=== PATIENT | female | born 1965 | race Caucasian/White ===

== ENCOUNTER → 2021-08-06 10:17 | Outpatient (BNVA) | payer MEDICAID, SELFPAY | PROVIDERS: PCP Family Medicine; Visit Provider Psychiatry & Neurology Neurology | DX: G43.109 Migraine with aura, not intractable, without status migrainosus (principal); G47.10 Hypersomnia, unspecified; R06.83 Snoring | CPT/HCPCS: 64615; 99212; J0585 ==

== ENCOUNTER → 2021-11-12 09:28 | Outpatient (BNVA) | payer MEDICAID, SELFPAY | PROVIDERS: PCP Family Medicine; Visit Provider Psychiatry & Neurology Neurology | DX: G43.109 Migraine with aura, not intractable, without status migrainosus (principal); R06.83 Snoring; G47.10 Hypersomnia, unspecified | CPT/HCPCS: 64615; 99211; J0585 ==

== ENCOUNTER → 2022-02-18 09:24 | Outpatient (BNVA) | payer MEDICAID, SELFPAY | PROVIDERS: PCP Family Medicine; Visit Provider Psychiatry & Neurology Neurology | DX: G43.109 Migraine with aura, not intractable, without status migrainosus (principal); R06.83 Snoring; G47.10 Hypersomnia, unspecified | CPT/HCPCS: 64615; 99211; J0585 ==

== ENCOUNTER → 2022-05-20 09:23 | Outpatient (BNVA) | payer MEDICAID, SELFPAY | PROVIDERS: PCP Family Medicine; Visit Provider Psychiatry & Neurology Neurology | DX: G43.109 Migraine with aura, not intractable, without status migrainosus (principal); G47.10 Hypersomnia, unspecified; R06.83 Snoring | CPT/HCPCS: 64615; 99211; J0585 ==

== ENCOUNTER → 2022-08-19 09:57 | Outpatient (BNVA) | payer OTHER, SELFPAY | PROVIDERS: PCP Family Medicine; Visit Provider Psychiatry & Neurology Neurology | DX: G43.709 Chronic migraine without aura, not intractable, without status migrainosus (principal) | CPT/HCPCS: 64615; 99211; J0585 ==

== ENCOUNTER 2022-12-04 08:29 | Outpatient (AMB) | payer MEDICAID, SELFPAY ==
[2022-12-04 08:52] VITALS: BP 108/70; PULSE 63; O2SAT 99
--- NOTE | 2022-12-04 08:52 | MHC.OFFVIS ---
Intake Vital Signs 12/04/22 08:52 Height 5 ft 5 in BMI Reason not done Patient refused/unable BP 108/70 Blood Pressure Location Rt brachial Position Sitting Pulse 63 Pulse Source Pulse Oximeter Pulse Oximetry (%) 99 Oxygen Delivery Method Room Air Intake Visit Reasons: Botox(pharm)-lvm Intake Note: Pt presents in office for botox Elementary Reading Specialist Required: No Allergies acetaminophen [From MIDRIN] Allergy (Unknown, Unverified 12/04/22 08:58) VOMITING amitriptyline [AMITRIPTYLINE] Allergy (Unknown, Unverified 12/04/22 08:58) SEVERE HALLUCINATIONS butalbital [From FIORICET] Allergy (Unknown, Unverified 12/04/22 08:58) VOMITING caffeine [From FIORICET] Allergy (Unknown, Unverified 12/04/22 08:58) VOMITING dichloralphenazone [From MIDRIN] Allergy (Unknown, Unverified 12/04/22 08:58) VOMITING ferumoxytol [From FERAHEME] Allergy (Unknown, Unverified 12/04/22 08:58) GETS REALLY SICK gabapentin [From NEURONTIN] Allergy (Unknown, Unverified 12/04/22 08:58) PSYCHOSIS ibuprofen Allergy (Unknown, Verified 12/04/22 08:58) Unknown isometheptene [From MIDRIN] Allergy (Unknown, Unverified 12/04/22 08:58) VOMITING levetiracetam [From KEPPRA] Allergy (Unknown, Unverified 12/04/22 08:58) HALLUCINATIONS meperidine [From DEMEROL] Allergy (Unknown, Unverified 12/04/22 08:58) HIVES methocarbamol [From ROBAXIN] Allergy (Unknown, Unverified 12/04/22 08:58) DIARRHEA metoclopramide [From REGLAN] Allergy (Unknown, Unverified 12/04/22 08:58) TWITCHING morphine [MORPHINE] Allergy (Unknown, Unverified 12/04/22 08:58) VOMITING nortriptyline [NORTRIPTYLINE] Allergy (Unknown, Unverified 12/04/22 08:58) PSYCHOSIS NSAIDS (Non-Steroidal Anti-Inflamma [NSAIDS (NON-STEROIDAL ANTI-INFLAMMA] Allergy (Unknown, Unverified 12/04/22 08:58) GI BLEED pregabalin [From LYRICA] Allergy (Unknown, Unverified 12/04/22 08:58) UNKNOWN propranolol [PROPRANOLOL] Allergy (Unknown, Unverified 12/04/22 08:58) TACHYCARDIA sumatriptan [From IMITREX] Allergy (Unknown, Unverified 12/04/22 08:58) IRREGULAR HEART RATE topiramate [From TOPAMAX] Allergy (Unknown, Unverified 12/04/22 08:58) UNKNOWN valproic acid [VALPROIC ACID] Allergy (Unknown, Unverified 12/04/22 08:58) PSYCHOSIS venlafaxine [VENLAFAXINE] Allergy (Unknown, Unverified 12/04/22 08:58) DIARRHEA zolmitriptan [From ZOMIG] Allergy (Unknown, Unverified 12/04/22 08:58) IRREGULAR HEART RATE Midrin Allergy (Unknown, Uncoded 12/04/22 08:58) Unknown Novocain Allergy (Unknown, Uncoded 12/04/22 08:58) Unknown HPI HPI Comments History of Present Illness Details ? 57y/o female comes for treatment of migraines with botox. The patient has increased headaches for 2 weeks towards the end. ??? Most frequent reported adverse reactions following injection of botox for chronic migraine include neck pain (9%), headache(5%), eyelid ptosis(4%), migraine(4%), muscular weakness(4%), musculuskeletal stiffness(4%), bronchitis(3%), injection site pain (3%), musculoskeletal pain(3%), myalgia(3%), facial paresis(2%), HTN(2%) and muscle spasms(2%) were discussed in detail. ??? Botulinum toxin typeA 200units Lot no [id number] expiration May 2025 was diluted with 4 cc of normal saline . ??? Muscles injected- ??? Frontalis 4 sites ??? Procerus 1 site ??? [employer] Application Developer- 2 sites ??? Temporalis- 8 sites ??? Occipitalis- 6 sites ??? Cervical paraspinals- 4 sites ??? Trapezius- 6 sites- 15units each ??? 5 units each in 31 site ??? Total use- 200units ??? PFSH Medical History Anemia Chronic migraine with aura Chronic migraine without aura Diabetes Hypersomnia Mitochondrial ataxia syndrome Osteoporosis Snoring Surgical History History of ankle surgery Hx of heart surgery Family History Father Parkinson disease Mother Tuberculosis Social History Alcohol intake: current Alcohol intake frequency: holidays/special occasions only Patient Tobacco Use Status: Never used Tobacco Substance Use Type: Marijuana Physical Exam Vital Signs: Last Vital Signs Pulse 63 12/04/22 08:52 BP 108/70 12/04/22 08:52 Pulse Ox 99 12/04/22 08:52 Oxygen Delivery Method Room Air 12/04/22 08:52 Const General: cooperative and comfortable Nutritional Appearance: average body habitus Neuro Other: slurred speech Generalized weakness antecollis Office Procedures Botulinum toxin Injection 93305 - Migraine Procedure code (CPT) selection complete Office Meds onabotulinumtoxinA Performing Provider: Ying Espinal MD Administered by: Ying Espinal MD on 12/04/22 09:31 Dose Route Admin Location Lot Number Expiration Date [facility] Child Psychometrist 200 unit subcut [id number] 05/07/25 [id number] ALLERGAN/BOTOX Comments: see hpi Assessment & Plan Assessment & Plan (1) Chronic migraine without aura: Code(s): G43.709 - Chronic migraine without aura, not intractable, without status migrainosus Plan She is doing well on ubrelvy 100mg and botox - reports some breakthrough episodes 2 week towards the end . will consider Botox every 10 weeks - her insurance did not approve She tolerated the procedure well she will call with any side effects Orders: Orders AMB Botulinum toxin Injection - Patient Supplied Today G43.709 - Chronic migraine without aura, not intractable, without status migrainosus Coding Level of Care Code Est Pt Level 1 (62164) Diagnoses Chronic migraine without aura G43.709 CPT Codes Botox Injection - Botox 3: 14849 - Migraine ([id number])
== END 2022-12-04 09:41 | disposition home or self-care (01) ==
PROVIDERS: Visit Provider Psychiatry & Neurology Neurology
DX: G43.709 Chronic migraine without aura, not intractable, without status migrainosus (principal)
CPT/HCPCS: 64615

== ENCOUNTER → 2022-12-04 08:29 | Outpatient (BNVA) | payer MEDICAID, SELFPAY | PROVIDERS: Visit Provider Psychiatry & Neurology Neurology | DX: G43.709 Chronic migraine without aura, not intractable, without status migrainosus (principal) | CPT/HCPCS: 64615; 99211; J0585 ==

== ENCOUNTER 2023-03-06 12:44 | Outpatient (REF) | payer MEDICAID, SELFPAY ==
--- NOTE | ~2023-03-06 | MR_ITS ---
EXAMINATION: MR BRAIN WITHOUT CONTRAST CLINICAL INFORMATION: Severe migraines. Numbness in extremities. Other mitochondrial metabolism disorders. COMPARISON: Head CT dated 04/22/2013. TECHNIQUE: Multiplanar, multisequence imaging of the brain was performed without contrast. Limited study with motion artifacts. FINDINGS: No diffusion abnormalities are identified to suggest an acute or subacute infarct. The ventricles are normal in size. No mass effect or midline shift is seen. Minimal nonspecific scattered white matter signal changes are visible in the centrum semiovale. No extra-axial fluid collections are seen. The brainstem and cerebellum are normal. The gradient refocused acquisition demonstrates no pathologic magnetic susceptibility artifact to indicate underlying acute or chronic blood products. The craniovertebral junction, marrow signal, and midline structures are normal. The major intracranial flow voids at the level of the [place] are preserved. The dural venous sinus flow voids are maintained. There is trace fluid in the dependent right mastoid air cells. Moderate left maxillary sinus mucosal thickening noted with aerosolized secretions. Mild ethmoid sinus mucosal thickening noted. Milder mucosal thickening visible in the right maxillary antrum as well. There is a moderate leftward nasal septal deviation. MR/MR head/brain wo con IMPRESSION: No acute process. Limited study with motion artifacts. Minimal nonspecific white matter signal changes of indeterminate clinical significance. Moderate left maxillary sinus mucosal thickening and aerosolized secretions.
== END 2023-03-06 12:45 | disposition home or self-care (01) ==
LOC: HO.MRI 12:44
PROVIDERS: Visit Provider Psychiatry & Neurology Neurology
DX: E88.49 Other mitochondrial metabolism disorders (principal)
CPT/HCPCS: 70551

== ENCOUNTER 2023-03-12 07:51 | Outpatient (AMB) | payer MEDICAID, SELFPAY ==
--- NOTE | 2023-03-12 08:10 | A.OFFVIS_ITS ---
Intake Vital Signs 03/12/23 08:11 Height 5 ft 5 in BP 120/70 Blood Pressure Location Rt brachial Position Sitting Respiration 16 Pulse 64 Pulse Source Pulse Oximeter Pulse Oximetry (%) 96 Oxygen Delivery Method Room Air Intake Visit Reasons: Botox(pharm) - LVM Intake Note: Pt presents for Botox injection. Closing Coordinator Required: No Allergies acetaminophen [From MIDRIN] Allergy (Unknown, Verified 03/12/23 08:11) VOMITING amitriptyline [AMITRIPTYLINE] Allergy (Unknown, Verified 03/12/23 08:11) SEVERE HALLUCINATIONS aspirin [From Fiorinal] Allergy (Unknown, Verified 03/12/23 08:11) Unknown butalbital [From FIORICET] Allergy (Unknown, Verified 03/12/23 08:11) VOMITING caffeine [From FIORICET] Allergy (Unknown, Verified 03/12/23 08:11) VOMITING cefuroxime Allergy (Unknown, Verified 03/12/23 08:11) Vomiting dichloralphenazone [From MIDRIN] Allergy (Unknown, Verified 03/12/23 08:11) VOMITING ferumoxytol [From FERAHEME] Allergy (Unknown, Verified 03/12/23 08:11) GETS REALLY SICK fluoxetine Allergy (Unknown, Verified 03/12/23 08:11) Unknown gabapentin [From NEURONTIN] Allergy (Unknown, Verified 03/12/23 08:11) PSYCHOSIS ibandronate sodium [From Boniva] Allergy (Unknown, Verified 03/12/23 08:11) Vomiting ibuprofen Allergy (Unknown, Verified 03/12/23 08:11) Unknown isometheptene [From MIDRIN] Allergy (Unknown, Verified 03/12/23 08:11) VOMITING levetiracetam [From KEPPRA] Allergy (Unknown, Verified 03/12/23 08:11) HALLUCINATIONS meperidine [From DEMEROL] Allergy (Unknown, Verified 03/12/23 08:11) HIVES methocarbamol [From ROBAXIN] Allergy (Unknown, Verified 03/12/23 08:11) DIARRHEA metoclopramide [From REGLAN] Allergy (Unknown, Verified 03/12/23 08:11) TWITCHING morphine [MORPHINE] Allergy (Unknown, Verified 03/12/23 08:11) VOMITING nortriptyline [NORTRIPTYLINE] Allergy (Unknown, Verified 03/12/23 08:11) PSYCHOSIS NSAIDS (Non-Steroidal Anti-Inflamma [NSAIDS (NON-STEROIDAL ANTI-INFLAMMA] Allergy (Unknown, Verified 03/12/23 08:11) GI BLEED pregabalin [From LYRICA] Allergy (Unknown, Verified 03/12/23 08:11) UNKNOWN propranolol [PROPRANOLOL] Allergy (Unknown, Verified 03/12/23 08:11) TACHYCARDIA sumatriptan [From IMITREX] Allergy (Unknown, Verified 03/12/23 08:11) IRREGULAR HEART RATE teriparatide [From Forteo] Allergy (Unknown, Verified 03/12/23 08:11) Unknown topiramate [From TOPAMAX] Allergy (Unknown, Verified 03/12/23 08:11) UNKNOWN valproic acid [VALPROIC ACID] Allergy (Unknown, Verified 03/12/23 08:11) PSYCHOSIS venlafaxine [VENLAFAXINE] Allergy (Unknown, Verified 03/12/23 08:11) DIARRHEA zolmitriptan [From ZOMIG] Allergy (Unknown, Verified 03/12/23 08:11) IRREGULAR HEART RATE valporic acid Allergy (Severe, Uncoded 12/04/22 11:48) Unknown Midrin Allergy (Unknown, Uncoded 12/04/22 08:58) Unknown Novocain Allergy (Unknown, Uncoded 12/04/22 08:58) Unknown Medication List - Last Reconciled 03/12/23 by Ying Espinal MD baclofen 20 mg PO BEDTIME buspirone 30 mg PO BID calcium citrate-vitamin D3 200 mg-6.25 mcg (250 unit) 1 tab PO BID cetirizine 10 mg PO DAILY cholecalciferol (vitamin D3) 50 mcg PO DAILY cyanocobalamin (vitamin B-12) 500 mcg PO DAILY enoxaparin mg subcut DIRECTED estradiol 0.01%(0.1mg/gram) 1 g vaginal 3XW hyoscyamine sulfate 0.125 mg PO QID hyoscyamine sulfate 0.125 mg PO QID latanoprost 0.005% 1 drp ophthalmic (eye) BEDTIME loperamide 0 mg PO lorazepam 1 mg PO QID magnesium oxide 0 mg PO morphine ER 15 mg PO Q12H onabotulinumtoxinA (Botox) to be injected to face an dneck muscles subcutaneously ONCE EVERY 90 DAYS; ondansetron 8 mg PO Q8H orphenadrine citrate 60 mg IM DAILY PRN oxycodone-acetaminophen 10-325 mg 1 tab PO TID pantoprazole 40 mg PO BID pravastatin 40 mg PO BEDTIME promethazine 25 mg PO TID PRN propranolol 20 mg PO BID PRN propranolol ER 60 mg PO DAILY sennosides-docusate sodium 8.6-50 mg (Stimulant Laxative Plus) 1 tab PO BID tizanidine 6 mg PO QID ubrogepant (Ubrelvy) 100 mg PO DAILY PRN venlafaxine ER 150 mg PO DAILY warfarin 5 - 10 mg PO DAILY zolpidem 10 mg PO BEDTIME PRN HPI HPI Comments History of Present Illness Details ? 57y/o female comes for treatment of migraines with botox. The patient has increased headaches for 2 weeks towards the end. ??? Most frequent reported adverse reactions following injection of botox for chronic migraine include neck pain (9%), headache(5%), eyelid ptosis(4%), migraine(4%), muscular weakness(4%), musculuskeletal stiffness(4%), bronchitis(3%), injection site pain (3%), musculoskeletal pain(3%), myalgia(3%), facial paresis(2%), HTN(2%) and muscle spasms(2%) were discussed in detail. ??? Botulinum toxin typeA 200units Lot no [id number] expiration June 2025 was diluted with 4 cc of normal saline . ??? Muscles injected- ??? Frontalis 4 sites ??? Procerus 1 site ??? Superintendent Of Schools- 2 sites ??? Temporalis- 8 sites ??? Occipitalis- 6 sites ??? Cervical paraspinals- 4 sites ??? Trapezius- 6 sites- 15units each ??? 5 units each in 31 site ??? Total use- 200units ??? PFSH Medical History Chronic migraine without aura Diabetes Hypersomnia Snoring Osteoporosis Chronic migraine with aura Mitochondrial ataxia syndrome Anemia Surgical History History of ankle surgery Hx of heart surgery Family History Father Parkinson disease Mother Tuberculosis Social History Alcohol intake: current Alcohol intake frequency: holidays/special occasions only Patient Tobacco Use Status: Never used Tobacco Substance Use Type: Marijuana Physical Exam Vital Signs: Last Vital Signs Pulse 64 03/12/23 08:11 Resp 16 03/12/23 08:11 BP 120/70 03/12/23 08:11 Pulse Ox 96 03/12/23 08:11 Oxygen Delivery Method Room Air 03/12/23 08:11 Const General: cooperative and comfortable Nutritional Appearance: average body habitus Neuro Other: slurred speech Generalized weakness antecollis Office Procedures Botulinum toxin Injection 83705 - Migraine Procedure code (CPT) selection complete Office Meds onabotulinumtoxinA 200 unit solution for injection Performing Provider: Ying Espinal MD Performing Location: [facility] [place] [facility] Administered by: Ying Espinal MD on 03/12/23 08:42 Dose Route Admin Location Dispensed Lot Number Expiration Date [facility] Food And Beverage Director 200 unit subcut 06/04/25 200 units [id number] ALLERGAN/BOTOX Comments: see hpi Assessment & Plan Assessment & Plan (1) Chronic migraine without aura: Code(s): G43.709 - Chronic migraine without aura, not intractable, without status migrainosus Plan She is doing well on ubrelvy 100mg and botox - reports some breakthrough episodes 2 week towards the end . will consider Botox every 10 weeks - her insurance did not approve She tolerated the procedure well she will call with any side effects Orders: Orders AMB Botulinum toxin Injection - Patient Supplied Today G43.709 - Chronic migraine without aura, not intractable, without status migrainosus Coding Level of Care Code Est Pt Level 1 (11445) Diagnoses Chronic migraine without aura G43.709 CPT Codes Botox Injection - Botox 3: 83769 - Migraine ([id number])
[2023-03-12 08:11] VITALS: BP 120/70; PULSE 64; RESP 16; O2SAT 96
== END 2023-03-12 08:58 | disposition home or self-care (01) ==
PROVIDERS: PCP Family Medicine; Visit Provider Psychiatry & Neurology Neurology
DX: G43.709 Chronic migraine without aura, not intractable, without status migrainosus (principal)
CPT/HCPCS: 64615

== ENCOUNTER → 2023-03-12 07:51 | Outpatient (BNVA) | payer MEDICAID, SELFPAY | PROVIDERS: PCP Family Medicine; Visit Provider Psychiatry & Neurology Neurology | DX: G43.709 Chronic migraine without aura, not intractable, without status migrainosus (principal) | CPT/HCPCS: 64615; 99211; J0585 ==

== ENCOUNTER 2023-03-24 10:12 | Outpatient (AMB) | payer MEDICAID, SELFPAY ==
--- NOTE | 2023-03-24 10:25 | MHC.OFFVIS ---
Intake Vital Signs 03/24/23 10:31 Height 5 ft 5 in Weight 150 lb BMI 25.0 BP 145/68 H Blood Pressure Location Lt brachial Pulse 67 Intake Visit Reasons: Gastroesophageal reflux disease (GERD) Intake Note: Patient new consult for GERD. Patient cc: abdominal bloating, acid reflex with burning sensation, between diarrhea and constipation and swallowing problems. Ledger Clerk Required: No Accompanied by: Friend Allergies acetaminophen [From MIDRIN] Allergy (Unknown, Verified 03/12/23 08:11) VOMITING amitriptyline [AMITRIPTYLINE] Allergy (Unknown, Verified 03/12/23 08:11) SEVERE HALLUCINATIONS aspirin [From Fiorinal] Allergy (Unknown, Verified 03/12/23 08:11) Unknown butalbital [From FIORICET] Allergy (Unknown, Verified 03/12/23 08:11) VOMITING caffeine [From FIORICET] Allergy (Unknown, Verified 03/12/23 08:11) VOMITING cefuroxime Allergy (Unknown, Verified 03/12/23 08:11) Vomiting dichloralphenazone [From MIDRIN] Allergy (Unknown, Verified 03/12/23 08:11) VOMITING ferumoxytol [From FERAHEME] Allergy (Unknown, Verified 03/12/23 08:11) GETS REALLY SICK fluoxetine Allergy (Unknown, Verified 03/12/23 08:11) Unknown gabapentin [From NEURONTIN] Allergy (Unknown, Verified 03/12/23 08:11) PSYCHOSIS ibandronate sodium [From Boniva] Allergy (Unknown, Verified 03/12/23 08:11) Vomiting ibuprofen Allergy (Unknown, Verified 03/12/23 08:11) Unknown isometheptene [From MIDRIN] Allergy (Unknown, Verified 03/12/23 08:11) VOMITING levetiracetam [From KEPPRA] Allergy (Unknown, Verified 03/12/23 08:11) HALLUCINATIONS meperidine [From DEMEROL] Allergy (Unknown, Verified 03/12/23 08:11) HIVES methocarbamol [From ROBAXIN] Allergy (Unknown, Verified 03/12/23 08:11) DIARRHEA metoclopramide [From REGLAN] Allergy (Unknown, Verified 03/12/23 08:11) TWITCHING morphine [MORPHINE] Allergy (Unknown, Verified 03/12/23 08:11) VOMITING nortriptyline [NORTRIPTYLINE] Allergy (Unknown, Verified 03/12/23 08:11) PSYCHOSIS NSAIDS (Non-Steroidal Anti-Inflamma [NSAIDS (NON-STEROIDAL ANTI-INFLAMMA] Allergy (Unknown, Verified 03/12/23 08:11) GI BLEED pregabalin [From LYRICA] Allergy (Unknown, Verified 03/12/23 08:11) UNKNOWN propranolol [PROPRANOLOL] Allergy (Unknown, Verified 03/12/23 08:11) TACHYCARDIA sumatriptan [From IMITREX] Allergy (Unknown, Verified 03/12/23 08:11) IRREGULAR HEART RATE teriparatide [From Forteo] Allergy (Unknown, Verified 03/12/23 08:11) Unknown topiramate [From TOPAMAX] Allergy (Unknown, Verified 03/12/23 08:11) UNKNOWN valproic acid [VALPROIC ACID] Allergy (Unknown, Verified 03/12/23 08:11) PSYCHOSIS venlafaxine [VENLAFAXINE] Allergy (Unknown, Verified 03/12/23 08:11) DIARRHEA zolmitriptan [From ZOMIG] Allergy (Unknown, Verified 03/12/23 08:11) IRREGULAR HEART RATE valporic acid Allergy (Severe, Uncoded 12/04/22 11:48) Unknown Midrin Allergy (Unknown, Uncoded 12/04/22 08:58) Unknown Novocain Allergy (Unknown, Uncoded 12/04/22 08:58) Unknown Medication List - Last Reconciled 03/24/23 by Shantell Sam PA-C baclofen 20 mg PO BEDTIME buspirone 30 mg PO BID calcium citrate-vitamin D3 200 mg-6.25 mcg (250 unit) 1 tab PO BID cetirizine 10 mg PO DAILY cholecalciferol (vitamin D3) 50 mcg PO DAILY cyanocobalamin (vitamin B-12) 500 mcg PO DAILY enoxaparin mg subcut DIRECTED hyoscyamine sulfate 0.125 mg PO QID latanoprost 0.005% 1 drp ophthalmic (eye) BEDTIME lorazepam 1 mg PO QID magnesium oxide 0 mg PO morphine ER 15 mg PO Q12H onabotulinumtoxinA (Botox) to be injected to face an dneck muscles subcutaneously ONCE EVERY 90 DAYS; ondansetron 8 mg PO Q8H orphenadrine citrate 60 mg IM DAILY PRN oxycodone-acetaminophen 10-325 mg 1 tab PO TID pantoprazole 40 mg PO BID pravastatin 40 mg PO BEDTIME promethazine 25 mg PO TID PRN propranolol 20 mg PO BID PRN sennosides-docusate sodium 8.6-50 mg (Stimulant Laxative Plus) 1 tab PO BID tizanidine 6 mg PO QID ubrogepant (Ubrelvy) 100 mg PO DAILY PRN venlafaxine ER 150 mg PO DAILY warfarin 5 - 10 mg PO DAILY zolpidem 10 mg PO BEDTIME PRN HPI HPI Comments History of Present Illness Details A 57 y/o female referred for acid reflux - pantoprazole for years- many EGD CDH- Bilroth 1- UGIB- mitochondrial dz- dismotility- She attempted a colonoscopy at least 4 times- last was about 5 years ago-- with Dr. Benjamin- unable to clean out- She has not ever cleaned out-she does get constipated she is unable to use suppositories or enemas because she is unable to retain She says she had polyps- in her 30s- She smoke MJ a couple times a day- Appetite is fluctuating- as well as her weight she has been to [employer] manometry- unclear-unable to provide feedback She saw [facility] for rectal -manometry as well No regular BM-s Acid reflux has been difficult to manage pantoprazole 40 mg daily, she is well tried other remedies in the past Reglan at some point for gastroparesis with side effects, which was then discontinued She has had no nausea, vomiting fever or chills PFSH Medical History (Updated 03/24/23 @ 12:56 by Shantell Sam PA-C) Chronic migraine without aura Diabetes Hypersomnia Snoring Osteoporosis Chronic migraine with aura Mitochondrial ataxia syndrome Anemia Surgical History History of ankle surgery Hx of heart surgery Family History Father Parkinson disease Mother Tuberculosis Social History (Updated 03/24/23 @ 12:43 by Shantell Sam PA-C) Household Members Other:: Long-term relationship/boyfriend, she has adult children Alcohol intake: current Alcohol intake frequency: holidays/special occasions only Patient Tobacco Use Status: Never used Tobacco Substance Use Type: Marijuana Review of Systems Const All systems reviewed & are unremarkable except as noted in HPI and below Denies chills, Reports fatigue and Denies fever(s) Card Denies chest pain and Denies dyspnea Resp Denies dyspnea GI Denies abdominal pain, Reports constipation, Reports GI cramping, Reports heartburn, Denies fecal incontinence, Denies nausea and Denies vomiting Musc Reports abnormal gait Neuro Reports abnormal gait Endo Reports fatigue Physical Exam Vital Signs: Last Vital Signs Pulse 67 03/24/23 10:31 BP 145/68 H 03/24/23 10:31 BMI result Body Mass Index 25.0 Const General: comfortable and no acute distress Orientation/consciousness: patient oriented x3 Eyes Sclerae: sclerae normal Resp Auscultation: clear to auscultation bilaterally and no wheezes GI Inspection: Yes distended (Mildly distended nontender) Palpation (GI): Soft to palpation and nontender Auscultation: normal bowel sounds Neuro General: patient oriented x3 Psych Speech and movement: Clear speech present Affect: normal affect Attitude: cooperative Thought process: Normal thought process present Thought content: Normal thought content present Results Reviewed Results Reviewed: PCP referral note Assessment & Plan Assessment & Plan (1) Mitochondrial ataxia syndrome: Comment: Very complex 57-year-old female referred with acid reflux and gastroparesis, however review of record shows multiple GI following, EGD colonoscopy he has no reports for review Manometry [facility], [facility] as well as [facility] for GI workup note to T- re labs/ reflux- Code(s): E88.49 - Other mitochondrial metabolism disorders Plan: Consult with MD as his expertise will serve us well Request previous GI records (2) Acid reflux: Comment: Pantoprazole for couple years frequent breakthrough Consider changing PPI, however has tried multiple Likely need EGD and colonoscopy for polyp surveillance-will await MD input as well as records previous gastroenterologists Code(s): K21.9 - Gastro-esophageal reflux disease without esophagitis Plan: Retrieve GI records Plan Will get labs-awaiting MD input-so that she only needs to get drawn once Review reflux precautions Consider changing PPI Patient Instructions: Consult with MD Consent signed for available GI records from [facility] as well as [facility] Reflux precautions reviewed Will discuss switch of PPI Will call patient with plan of care-to for [facility] for follow-up appointment She is agreeable, there are no major barriers to understanding identified Boyfriend present and supportive And follow-up with MD Coding Level of Care Code New Pt Level 4 (52690) Diagnoses Mitochondrial ataxia syndrome E88.49 Acid reflux K21.9 Time Spent (min) 45
[2023-03-24 10:31] VITALS: BP 145/68; PULSE 67; BMI 25.0
== END 2023-03-24 12:30 | disposition home or self-care (01) ==
PROVIDERS: PCP Family Medicine; Visit Provider Physician Assistant
DX: E88.49 Other mitochondrial metabolism disorders (principal); K21.9 Gastro-esophageal reflux disease without esophagitis
CPT/HCPCS: 99204

== ENCOUNTER → 2023-03-24 10:12 | Outpatient (BNVA) | payer MEDICAID, SELFPAY | PROVIDERS: PCP Family Medicine; Visit Provider Physician Assistant | DX: E88.49 Other mitochondrial metabolism disorders (principal); K21.9 Gastro-esophageal reflux disease without esophagitis | CPT/HCPCS: 99202 ==

== ENCOUNTER 2023-06-15 08:30 | Outpatient (AMB) | payer MEDICAID, SELFPAY ==
--- NOTE | 2023-06-15 08:43 | A.OFFVIS_ITS ---
Intake Vital Signs 06/15/23 08:44 Height 5 ft 5 in Weight 150 lb BMI 25.0 BP 152/92 H Blood Pressure Location Rt brachial Position Sitting Respiration 16 Pulse 76 Pulse Source Pulse Oximeter Pulse Oximetry (%) 95 Oxygen Delivery Method Room Air Intake Visit Reasons: Botox(pharm)-CONF Intake Note: Pt presents to office for Botox injecions. Allergies acetaminophen [From MIDRIN] Allergy (Unknown, Verified 06/15/23 08:44) VOMITING amitriptyline [AMITRIPTYLINE] Allergy (Unknown, Verified 06/15/23 08:44) SEVERE HALLUCINATIONS aspirin [From Fiorinal] Allergy (Unknown, Verified 06/15/23 08:44) Unknown butalbital [From FIORICET] Allergy (Unknown, Verified 06/15/23 08:44) VOMITING caffeine [From FIORICET] Allergy (Unknown, Verified 06/15/23 08:44) VOMITING cefuroxime Allergy (Unknown, Verified 06/15/23 08:44) Vomiting dichloralphenazone [From MIDRIN] Allergy (Unknown, Verified 06/15/23 08:44) VOMITING ferumoxytol [From FERAHEME] Allergy (Unknown, Verified 06/15/23 08:44) GETS REALLY SICK fluoxetine Allergy (Unknown, Verified 06/15/23 08:44) Unknown gabapentin [From NEURONTIN] Allergy (Unknown, Verified 06/15/23 08:44) PSYCHOSIS ibandronate sodium [From Boniva] Allergy (Unknown, Verified 06/15/23 08:44) Vomiting ibuprofen Allergy (Unknown, Verified 06/15/23 08:44) Unknown isometheptene [From MIDRIN] Allergy (Unknown, Verified 06/15/23 08:44) VOMITING levetiracetam [From KEPPRA] Allergy (Unknown, Verified 06/15/23 08:44) HALLUCINATIONS meperidine [From DEMEROL] Allergy (Unknown, Verified 06/15/23 08:44) HIVES methocarbamol [From ROBAXIN] Allergy (Unknown, Verified 06/15/23 08:44) DIARRHEA metoclopramide [From REGLAN] Allergy (Unknown, Verified 06/15/23 08:44) TWITCHING morphine [MORPHINE] Allergy (Unknown, Verified 06/15/23 08:44) VOMITING nortriptyline [NORTRIPTYLINE] Allergy (Unknown, Verified 06/15/23 08:44) PSYCHOSIS NSAIDS (Non-Steroidal Anti-Inflamma [NSAIDS (NON-STEROIDAL ANTI-INFLAMMA] Allergy (Unknown, Verified 06/15/23 08:44) GI BLEED pregabalin [From LYRICA] Allergy (Unknown, Verified 06/15/23 08:44) UNKNOWN propranolol [PROPRANOLOL] Allergy (Unknown, Verified 06/15/23 08:44) TACHYCARDIA sumatriptan [From IMITREX] Allergy (Unknown, Verified 06/15/23 08:44) IRREGULAR HEART RATE teriparatide [From Forteo] Allergy (Unknown, Verified 06/15/23 08:44) Unknown topiramate [From TOPAMAX] Allergy (Unknown, Verified 06/15/23 08:44) UNKNOWN valproic acid [VALPROIC ACID] Allergy (Unknown, Verified 06/15/23 08:44) PSYCHOSIS venlafaxine [VENLAFAXINE] Allergy (Unknown, Verified 06/15/23 08:44) DIARRHEA zolmitriptan [From ZOMIG] Allergy (Unknown, Verified 06/15/23 08:44) IRREGULAR HEART RATE valporic acid Allergy (Severe, Uncoded 06/15/23 08:44) Unknown Midrin Allergy (Unknown, Uncoded 06/15/23 08:44) Unknown Novocain Allergy (Unknown, Uncoded 06/15/23 08:44) Unknown Medication List - Last Reconciled 06/15/23 by Ying Espinal MD baclofen 20 mg PO BEDTIME buspirone 30 mg PO BID calcium citrate-vitamin D3 200 mg-6.25 mcg (250 unit) 1 tab PO BID cetirizine 10 mg PO DAILY cholecalciferol (vitamin D3) 50 mcg PO DAILY cyanocobalamin (vitamin B-12) 500 mcg PO DAILY enoxaparin mg subcut DIRECTED hyoscyamine sulfate 0.125 mg PO QID latanoprost 0.005% 1 drp ophthalmic (eye) BEDTIME lorazepam 1 mg PO QID magnesium oxide 0 mg PO morphine ER 15 mg PO Q12H onabotulinumtoxinA (Botox) to be injected to face an dneck muscles subcutaneously ONCE EVERY 90 DAYS; ondansetron 8 mg PO Q8H orphenadrine citrate 60 mg IM DAILY PRN oxycodone-acetaminophen 10-325 mg 1 tab PO TID pantoprazole 40 mg PO BID pravastatin 40 mg PO BEDTIME promethazine 25 mg PO TID PRN propranolol 20 mg PO BID PRN sennosides-docusate sodium 8.6-50 mg (Stimulant Laxative Plus) 1 tab PO BID tizanidine 6 mg PO QID ubrogepant (Ubrelvy) 100 mg PO DAILY PRN venlafaxine ER 150 mg PO DAILY warfarin 5 - 10 mg PO DAILY zolpidem 10 mg PO BEDTIME PRN HPI HPI Comments History of Present Illness Details ? 57y/o female comes for treatment of migraines with botox. The patient has increased headaches for 2 weeks towards the end. ??? Most frequent reported adverse reactions following injection of botox for chronic migraine include neck pain (9%), headache(5%), eyelid ptosis(4%), migraine(4%), muscular weakness(4%), musculuskeletal stiffness(4%), bronchitis(3%), injection site pain (3%), musculoskeletal pain(3%), myalgia(3%), facial paresis(2%), HTN(2%) and muscle spasms(2%) were discussed in detail. ??? Botulinum toxin typeA 200units Lot no [id number] expiration September 2025 was diluted with 4 cc of normal saline . ??? Muscles injected- ??? Frontalis 4 sites ??? Procerus 1 site ??? Installer Helper- 2 sites ??? Temporalis- 8 sites ??? Occipitalis- 6 sites ??? Cervical paraspinals- 4 sites ??? Trapezius- 6 sites- 15units each ??? 5 units each in 31 site ??? Total use- 200units ??? [facility] Medical History Chronic migraine without aura Diabetes Hypersomnia Snoring Osteoporosis Chronic migraine with aura Mitochondrial ataxia syndrome Anemia Surgical History History of ankle surgery Hx of heart surgery Family History Father Parkinson disease Mother Tuberculosis Social History Household Members Other:: Long-term relationship/boyfriend, she has adult children Alcohol intake: current Alcohol intake frequency: holidays/special occasions only Patient Tobacco Use Status: Never used Tobacco Substance Use Type: Marijuana Physical Exam Vital Signs: Last Vital Signs Pulse 76 06/15/23 08:44 Resp 16 06/15/23 08:44 BP 152/92 H 06/15/23 08:44 Pulse Ox 95 06/15/23 08:44 Oxygen Delivery Method Room Air 06/15/23 08:44 BMI result Body Mass Index 25.0 Const General: comfortable and no acute distress Orientation/consciousness: patient oriented x3 Neuro General: patient oriented x3 Psych Speech and movement: Clear speech present Affect: normal affect Attitude: cooperative Thought process: Normal thought process present Thought content: Normal thought content present Office Procedures Botulinum toxin Injection 11282 - Migraine Procedure code (CPT) selection complete Office Meds onabotulinumtoxinA 200 unit solution for injection Performing Provider: Ying Espinal MD Performing Location: [facility] Administered by: Ying Espinal MD on 06/15/23 09:16 Dose Route Admin Location Dispensed Lot Number Expiration Date [facility] [employer] 200 unit subcut 200 units [id number] 09/04/25 8672-6867-16 ALLERGAN/BOTOX Comments: see hpi Assessment & Plan Assessment & Plan (1) Chronic migraine without aura: Code(s): G43.709 - Chronic migraine without aura, not intractable, without status migrainosus Plan She is doing well on ubrelvy 100mg and botox - reports some breakthrough episodes 2 week towards the end . will consider Botox every 10 weeks - her insurance did not approve She tolerated the procedure well she will call with any side effects Orders: Orders AMB Botulinum toxin Injection - Patient Supplied Today G43.709 - Chronic migraine without aura, not intractable, without status migrainosus Coding Level of Care Code Est Pt Level 1 (54957) Diagnoses Chronic migraine without aura G43.709 CPT Codes Botox Injection - Botox 3: 05056 - Migraine ([id number])
[2023-06-15 08:44] VITALS: BP 152/92; PULSE 76; RESP 16; O2SAT 95; BMI 25.0
== END 2023-06-15 09:01 | disposition home or self-care (01) ==
PROVIDERS: PCP Family Medicine; Visit Provider Psychiatry & Neurology Neurology
DX: G43.709 Chronic migraine without aura, not intractable, without status migrainosus (principal)
CPT/HCPCS: 64615

== ENCOUNTER → 2023-06-15 08:30 | Outpatient (BNVA) | payer MEDICAID, SELFPAY | PROVIDERS: PCP Family Medicine; Visit Provider Psychiatry & Neurology Neurology | DX: G43.709 Chronic migraine without aura, not intractable, without status migrainosus (principal) | CPT/HCPCS: 64615; 99211; J0585 ==

== ENCOUNTER 2023-06-19 09:01 | Outpatient (AMB) | payer MEDICAID, SELFPAY ==
--- NOTE | 2023-06-19 09:15 | MHC.OFFVIS ---
Intake Vital Signs 06/19/23 09:19 Height 5 ft 5 in Weight 160 lb 14.999 oz BMI 26.8 BP 115/61 Blood Pressure Location Lt brachial Position Sitting Pulse 68 Intake Visit Reasons: 2nd Opinion Per Shantell Intake Note: Coral presents in the office as a 2nd opinion per Shantell. CC: She is way over due for a colonoscopy she states that is her only concern. Allergies acetaminophen [From MIDRIN] Allergy (Unknown, Verified 06/19/23 09:19) VOMITING amitriptyline [AMITRIPTYLINE] Allergy (Unknown, Verified 06/19/23 09:19) SEVERE HALLUCINATIONS aspirin [From Fiorinal] Allergy (Unknown, Verified 06/19/23 09:19) Unknown butalbital [From FIORICET] Allergy (Unknown, Verified 06/19/23 09:19) VOMITING caffeine [From FIORICET] Allergy (Unknown, Verified 06/19/23 09:19) VOMITING cefuroxime Allergy (Unknown, Verified 06/19/23 09:19) Vomiting dichloralphenazone [From MIDRIN] Allergy (Unknown, Verified 06/19/23 09:19) VOMITING ferumoxytol [From FERAHEME] Allergy (Unknown, Verified 06/19/23 09:19) GETS REALLY SICK fluoxetine Allergy (Unknown, Verified 06/19/23 09:19) Unknown gabapentin [From NEURONTIN] Allergy (Unknown, Verified 06/19/23 09:19) PSYCHOSIS ibandronate sodium [From Boniva] Allergy (Unknown, Verified 06/19/23 09:19) Vomiting ibuprofen Allergy (Unknown, Verified 06/19/23 09:19) Unknown isometheptene [From MIDRIN] Allergy (Unknown, Verified 06/19/23 09:19) VOMITING levetiracetam [From KEPPRA] Allergy (Unknown, Verified 06/19/23 09:19) HALLUCINATIONS meperidine [From DEMEROL] Allergy (Unknown, Verified 06/19/23 09:19) HIVES methocarbamol [From ROBAXIN] Allergy (Unknown, Verified 06/19/23 09:19) DIARRHEA metoclopramide [From REGLAN] Allergy (Unknown, Verified 06/19/23 09:19) TWITCHING morphine [MORPHINE] Allergy (Unknown, Verified 06/19/23 09:19) VOMITING nortriptyline [NORTRIPTYLINE] Allergy (Unknown, Verified 06/19/23 09:19) PSYCHOSIS NSAIDS (Non-Steroidal Anti-Inflamma [NSAIDS (NON-STEROIDAL ANTI-INFLAMMA] Allergy (Unknown, Verified 06/19/23 09:19) GI BLEED pregabalin [From LYRICA] Allergy (Unknown, Verified 06/19/23 09:19) UNKNOWN propranolol [PROPRANOLOL] Allergy (Unknown, Verified 06/19/23 09:19) TACHYCARDIA sumatriptan [From IMITREX] Allergy (Unknown, Verified 06/19/23 09:19) IRREGULAR HEART RATE teriparatide [From Forteo] Allergy (Unknown, Verified 06/19/23 09:19) Unknown topiramate [From TOPAMAX] Allergy (Unknown, Verified 06/19/23 09:19) UNKNOWN valproic acid [VALPROIC ACID] Allergy (Unknown, Verified 06/19/23 09:19) PSYCHOSIS venlafaxine [VENLAFAXINE] Allergy (Unknown, Verified 06/19/23 09:19) DIARRHEA zolmitriptan [From ZOMIG] Allergy (Unknown, Verified 06/19/23 09:19) IRREGULAR HEART RATE valporic acid Allergy (Severe, Uncoded 06/19/23 09:19) Unknown Midrin Allergy (Unknown, Uncoded 06/19/23 09:19) Unknown Novocain Allergy (Unknown, Uncoded 06/19/23 09:19) Unknown HPI 2nd Opinion Per Shantell HPI Details 57 y/o female w hx of gerd, mitochondrial dz here for follow up RECAP: Saw [facility] issues with GERD, hx of Bilroth 1- for bleeding ulcer hx of chronic constipation she has been seeing doctors in [place], [facility] and [facility] she stopped reglan due to TD INTERIM: her main issue is pain when she has constipation, but can also have diarrhea she has severe reflux, she has had egd and colo in the past but long time ago she has had polyps in the past she uses protonix and maybe 50% effective she is also on percocet and morphine maybe sues 4 times a week chronic issues with swallowing, 20 yrs, she has mild depression gets IV fluids for POT syndrome EXAM: GENERAL: The patient is well developed and nontoxic. VITAL SIGNS:see workflow HEENT: Nonicteric sclerae, PERRLA, EOMI. Oropharynx clear. Moist mucous membranes. Conjunctivae appear well perfused. No thyroid mass. CHEST: Chest wall is nontender. HEART: Regular rate and rhythm without murmurs. LUNGS: Clear to auscultation bilaterally. ABDOMEN: Soft, positive bowel sounds, nontender, no organomegaly.no flank tenderness SKIN: No rash, no excessive bruising, petechiae, or purpura. NEUROLOGIC: Cranial nerves II-XII intact without motor/sensory deficit. Psych: normal affect A/P: 1/ Multiple reasons for her sx, POT, mitochondrial dz, possible SIBO, opiate use, prior surgery (prob had vagotomy) explained motility can be frustrating to treat, might not get her 100% better PLAN: 1/ trial of rifaximin 2/ movantik on days taking opiates 3/ nutrient check 4/ food allergies 5/can consider motegrity, mirtazepine, probiotics, ibgard, 6/ repeat EGD and colo depending on response to above [facility] Medical History (Updated 06/19/23 @ 09:20 by RADHA Cazares) Hx of skin cancer, basal cell Chronic migraine without aura Diabetes Hypersomnia Snoring Osteoporosis Chronic migraine with aura Mitochondrial ataxia syndrome Anemia Surgical History History of ankle surgery Hx of heart surgery Family History Father Parkinson disease Mother Tuberculosis Social History Household Members Other:: Long-term relationship/boyfriend, she has adult children Alcohol intake: current Alcohol intake frequency: holidays/special occasions only Patient Tobacco Use Status: Never used Tobacco Substance Use Type: Marijuana Physical Exam Vital Signs: Last Vital Signs Pulse 68 06/19/23 09:19 BP 115/61 06/19/23 09:19 BMI result Body Mass Index 26.8 Assessment & Plan Assessment & Plan (1) Anemia: Code(s): D64.9 - Anemia, unspecified Plan: see above (2) Acid reflux: Comment: Pantoprazole for couple years frequent breakthrough Consider changing PPI, however has tried multiple Likely need EGD and colonoscopy for polyp surveillance-will await MD input as well as records previous gastroenterologists Code(s): K21.9 - Gastro-esophageal reflux disease without esophagitis Plan: see above (3) Chronic migraine without aura: Code(s): G43.709 - Chronic migraine without aura, not intractable, without status migrainosus Plan: see above Orders: Orders Transglutaminase Ab IgG Today D64.9 - Anemia, unspecified, G43.709 - Chronic migraine without aura, not intractable, without status migrainosus, G89.29 - Other chronic pain, K21.9 - Gastro-esophageal reflux disease without esophagitis, R10.33 - Periumbilical pain Transglutaminase IgA Today D64.9 - Anemia, unspecified, G43.709 - Chronic migraine without aura, not intractable, without status migrainosus, K21.9 - Gastro-esophageal reflux disease without esophagitis Vitamin A Today D64.9 - Anemia, unspecified, G43.709 - Chronic migraine without aura, not intractable, without status migrainosus, K21.9 - Gastro-esophageal reflux disease without esophagitis Vitamin B1 Today D64.9 - Anemia, unspecified, G43.709 - Chronic migraine without aura, not intractable, without status migrainosus, K21.9 - Gastro-esophageal reflux disease without esophagitis Vitamin B12 and Folate Today D64.9 - Anemia, unspecified, G43.709 - Chronic migraine without aura, not intractable, without status migrainosus, K21.9 - Gastro-esophageal reflux disease without esophagitis Vitamin B3 (Niacin) Today D64.9 - Anemia, unspecified, G43.709 - Chronic migraine without aura, not intractable, without status migrainosus, K21.9 - Gastro-esophageal reflux disease without esophagitis Vitamin C Today D64.9 - Anemia, unspecified, G43.709 - Chronic migraine without aura, not intractable, without status migrainosus, K21.9 - Gastro-esophageal reflux disease without esophagitis Vitamin D 25-OH Total Today D64.9 - Anemia, unspecified, G43.709 - Chronic migraine without aura, not intractable, without status migrainosus, K21.9 - Gastro-esophageal reflux disease without esophagitis Vitamin K1 Today D64.9 - Anemia, unspecified, G43.709 - Chronic migraine without aura, not intractable, without status migrainosus, K21.9 - Gastro-esophageal reflux disease without esophagitis NATALIE Reflex Titer and Pattern Today D64.9 - Anemia, unspecified, G43.709 - Chronic migraine without aura, not intractable, without status migrainosus, K21.9 - Gastro-esophageal reflux disease without esophagitis, R79.82 - Elevated C-reactive protein (CRP) Angiotensin Converting Enzyme Today D64.9 - Anemia, unspecified, G43.709 - Chronic migraine without aura, not intractable, without status migrainosus, K21.9 - Gastro-esophageal reflux disease without esophagitis Complete Blood Count Auto Diff Today D64.9 - Anemia, unspecified, G43.709 - Chronic migraine without aura, not intractable, without status migrainosus, K21.9 - Gastro-esophageal reflux disease without esophagitis Comprehensive Met. Panel Today D64.9 - Anemia, unspecified, G43.709 - Chronic migraine without aura, not intractable, without status migrainosus, K21.9 - Gastro-esophageal reflux disease without esophagitis, K75.81 - Nonalcoholic steatohepatitis (GARCIA) XR KUB Today D64.9 - Anemia, unspecified, G43.709 - Chronic migraine without aura, not intractable, without status migrainosus, K21.9 - Gastro-esophageal reflux disease without esophagitis Immunoglobulin G Today D64.9 - Anemia, unspecified, G43.709 - Chronic migraine without aura, not intractable, without status migrainosus, K21.9 - Gastro-esophageal reflux disease without esophagitis, K52.839 - Microscopic colitis, unspecified Immunoglobulin E Today D64.9 - Anemia, unspecified, G43.709 - Chronic migraine without aura, not intractable, without status migrainosus, K21.9 - Gastro-esophageal reflux disease without esophagitis Immunoglobulins,IgG IgA IgM Today D64.9 - Anemia, unspecified, G43.709 - Chronic migraine without aura, not intractable, without status migrainosus, K21.9 - Gastro-esophageal reflux disease without esophagitis IRON PROFILE Today D64.9 - Anemia, unspecified, G43.709 - Chronic migraine without aura, not intractable, without status migrainosus, K21.9 - Gastro-esophageal reflux disease without esophagitis Hemoglobin A1c Today D64.9 - Anemia, unspecified, G43.709 - Chronic migraine without aura, not intractable, without status migrainosus, K21.9 - Gastro-esophageal reflux disease without esophagitis Aldolase Today D64.9 - Anemia, unspecified, G43.709 - Chronic migraine without aura, not intractable, without status migrainosus, K21.9 - Gastro-esophageal reflux disease without esophagitis Erythrocyte Sedimentation Rate Today D64.9 - Anemia, unspecified, G43.709 - Chronic migraine without aura, not intractable, without status migrainosus, K21.9 - Gastro-esophageal reflux disease without esophagitis TSH reflex Free T4 Today D64.9 - Anemia, unspecified, G43.709 - Chronic migraine without aura, not intractable, without status migrainosus, K21.9 - Gastro-esophageal reflux disease without esophagitis Vitamin B5 (Pantothenic Acid) Today D64.9 - Anemia, unspecified, G43.709 - Chronic migraine without aura, not intractable, without status migrainosus, K21.9 - Gastro-esophageal reflux disease without esophagitis Vitamin B6 Today D64.9 - Anemia, unspecified, G43.709 - Chronic migraine without aura, not intractable, without status migrainosus, K21.9 - Gastro-esophageal reflux disease without esophagitis Vitamin E Today D64.9 - Anemia, unspecified, G43.709 - Chronic migraine without aura, not intractable, without status migrainosus, K21.9 - Gastro-esophageal reflux disease without esophagitis Zinc Today D64.9 - Anemia, unspecified, G43.709 - Chronic migraine without aura, not intractable, without status migrainosus, K21.9 - Gastro-esophageal reflux disease without esophagitis Ferritin Today D64.9 - Anemia, unspecified, G43.709 - Chronic migraine without aura, not intractable, without status migrainosus, K21.9 - Gastro-esophageal reflux disease without esophagitis ANCA Vasculitides Today D64.9 - Anemia, unspecified, G43.709 - Chronic migraine without aura, not intractable, without status migrainosus, K21.9 - Gastro-esophageal reflux disease without esophagitis C Reactive Protein Today D64.9 - Anemia, unspecified, G43.709 - Chronic migraine without aura, not intractable, without status migrainosus, K21.9 - Gastro-esophageal reflux disease without esophagitis Hepatitis A,B,C Profile Today D64.9 - Anemia, unspecified, G43.709 - Chronic migraine without aura, not intractable, without status migrainosus, K21.9 - Gastro-esophageal reflux disease without esophagitis Rast Allergen Today D64.9 - Anemia, unspecified, G43.709 - Chronic migraine without aura, not intractable, without status migrainosus, K21.9 - Gastro-esophageal reflux disease without esophagitis Histamine Plasma Today D64.9 - Anemia, unspecified, G43.709 - Chronic migraine without aura, not intractable, without status migrainosus, K21.9 - Gastro-esophageal reflux disease without esophagitis Medications: New rifaximin 550 mg PO TID 2 weeks 42 tabs 0RF naloxegol (Movantik) must be taken on empty stomach; no food 1 hr after or 2-3 hrs before dose, take on days when taking pain meds 25 mg PO QAM 30 tabs 0RF Coding Level of Care Code Est Pt Level 4 (14739) Diagnoses Anemia D64.9 Acid reflux K21.9 Chronic migraine without aura G43.709
[2023-06-19 09:19] VITALS: BP 115/61; PULSE 68; BMI 26.8
== END 2023-06-19 10:16 | disposition home or self-care (01) ==
PROVIDERS: PCP Family Medicine; Visit Provider Internal Medicine Gastroenterology
DX: D64.9 Anemia, unspecified (principal); K21.9 Gastro-esophageal reflux disease without esophagitis; G43.709 Chronic migraine without aura, not intractable, without status migrainosus
CPT/HCPCS: 99214

== ENCOUNTER → 2023-06-19 09:01 | Outpatient (BNVA) | payer MEDICAID, SELFPAY | PROVIDERS: PCP Family Medicine; Visit Provider Internal Medicine Gastroenterology | DX: D64.9 Anemia, unspecified (principal); K21.9 Gastro-esophageal reflux disease without esophagitis; G43.709 Chronic migraine without aura, not intractable, without status migrainosus | CPT/HCPCS: 99212 ==

== ENCOUNTER 2023-07-10 11:50 | Outpatient (REF) | payer MEDICAID, SELFPAY ==
--- NOTE | ~2023-07-10 | XR_ITS ---
EXAMINATION: XR ABDOMEN KUB CLINICAL INDICATION: Anemia, abdominal pain. COMPARISON: None available. TECHNIQUE: 2 AP views of the abdomen. FINDINGS: Median sternotomy wires are partially imaged in the lower thorax. Degenerative changes in the imaged spine. Nonobstructive bowel gas pattern. Moderate amount of stool in the colon. Small pelvic calcifications are likely vascular. XR/XR KUB IMPRESSION: Nonobstructive bowel gas pattern.
[2023-07-10 12:27] LABS: MANUAL DIFF FLAG NO
[2023-07-10 12:45] LABS: Basophils Absolute Auto 0.1 X10*3/uL (0.0-0.2); Basophils Percent Auto 0.6 % (0-2); Eosinophils Absolute Auto 0.2 X10*3/uL (0.0-0.4); Eosinophils Percent Auto 2.6 % (0-4); Hematocrit 37.7 % (37.0-47.0); Hemoglobin 13.6 g/dl (12.0-16.0); Imm Gran Abs Auto 0.03 X10*3/uL (0.00-0.03); Imm Gran Pct Auto 0.3 % (0.0-0.4); Lymphocytes Absolute Auto 1.9 X10*3/uL (1.2-4.9); Lymphocytes Percent Auto 21.5 % (20-40); Mean Corpuscular HGB Conc 36.1 g/dl (31.0-35.0); Mean Corpuscular Hemoglobin 31.9 pg (27.0-33.0); Mean Corpuscular Volume 88.3 fL (80.0-98.0); Mean Platelet Volume 10.6 fL (9.4-12.3); Monocytes Absolute Auto 0.8 X10*3/uL (0.1-1.2); Monocytes Percent Auto 9.1 % (2-11); Neutrophils Absolute Auto 5.9 x10*3/uL (2.0-8.3); Neutrophils Percent Auto 65.9 % (45-73); Platelet Count 326 X10*3/uL (160-400); Red Blood Count 4.27 X10*6/uL (4.20-5.50); Red Cell Distribution Width 12.6 % (11.0-16.0)
[2023-07-10 12:52] LABS: Estimated Average Glucose 100 mg/dL; Hemoglobin A1c % 5.1 % (<6.0)
[2023-07-10 13:29] LABS: Erythrocyte Sedimentation Rate 16 MM/HR (0-20)
[2023-07-10 13:42] LABS: Alanine Aminotransferase 22 U/L (0-31); Albumin Level 4.8 g/dL (3.5-5.0); Alkaline Phosphatase 64 U/L (39-117); Anion Gap 13 (12-20); Aspartate Amino Transferase 22 U/L (5-31); Bilirubin Total 0.3 mg/dL (0.0-1.0); Blood Urea Nitrogen 11 mg/dL (9-16); C Reactive Protein 0.24 mg/dL (< or = 0.50); Calcium 10.3 mg/dL (8.4-10.2); Carbon Dioxide 28 mmol/L (22-29); Chloride 103 mmol/L (96-108); Estimated Glomerular Filt Rate > 60; Glucose Random 80 mg/dL (60-115); Iron 151 mcg/dL (30-160); Percent Iron Saturation 50 % (15-50); Potassium 4.2 mmol/L (3.3-5.1); Sodium 140 mmol/L (135-145); Total Iron Binding Capacity 300 mcg/dL (228-428); Total Protein 8.3 g/dL (6.5-8.0); Unsaturated Iron Binding 149 ug/dL
[2023-07-10 13:59] LABS: Ferritin 259 ng/mL (10-250); TSH reflex Free T4 0.86 uIU/mL (0.32-4.0)
[2023-07-10 14:04] LABS: Folate 10.8 ng/mL (> or = 4.0); Vitamin B12 1562 pg/mL (200-900)
[2023-07-11 09:32] LABS: HBS Num1 0.23 mIU/mL (0-7.99); HBc Num1 0.17 S/CO (0.00-0.79); HBsAGNum1 0.33 S/CO (0.00-0.99); Hepatitis A Antibody IgM 0.21 Index (0-0.79); Hepatitis B Core Antibody Nonreactive (Nonreactive); Hepatitis B Surface Antigen Negative (Negative); ~HepC Num1 0.19 S/CO (0.00-0.79); ~Hepatitis A Antibody IgM Nonreactive (Nonreactive); ~Hepatitis B Surface Antibody NONREACTIVE (Nonreactive); ~Hepatitis C Antibody Nonreactive (Nonreactive)
[2023-07-13 11:43] LABS: Anti Nuclear Antibody Screen NEGATIVE (NEGATIVE)
[2023-07-13 12:33] LABS: IgA 185 mg/dL (47-310); IgG 1303 mg/dL (600-1640); IgM 78 mg/dL (50-300)
[2023-07-13 21:03] LABS: Myeloperoxidase Antibody <1.0 AI; Proteinase 3 PR3 Antibodies <1.0 AI
[2023-07-14 13:33] LABS: Transglutaminase Ab IgG <1.0 U/mL; Transglutaminase IgA <1.0 U/mL
[2023-07-14 14:33] LABS: Angiotensin Converting Enzyme 36.3 U/L (9-67)
[2023-07-14 15:53] LABS: Zinc 79 mcg/dL (60-130)
[2023-07-14 16:14] LABS: Nicotinamide <20 ng/mL; Vit B3 - Nicotinic Acid <20 ng/mL
[2023-07-14 18:49] LABS: Vitamin B5 (Pantothenic Acid) <40 ng/mL (<275)
[2023-07-15 10:19] LABS: Vitamin K1 197 pg/mL (130-1500)
[2023-07-15 16:14] LABS: Alpha-Tocopherol 13.4 mg/L (5.7-19.9); Beta-Gamma Tocopherol 1.2 mg/L (<=4.3)
[2023-07-15 23:33] LABS: Immunoglobulin E 58 kU/L (<OR=114)
[2023-07-16 11:03] LABS: Vitamin C 0.4 mg/dL (0.3-2.7)
[2023-07-16 14:25] LABS: Aldolase 2.8 U/L (<=8.1)
[2023-07-18 13:43] LABS: Histamine Plasma <1.5 ng/mL (< OR = 1.8)
[2023-07-21 13:09] LABS: Vitamin A 60 mcg/dL (38-98); Vitamin B1 20 nmol/L (8-30); Vitamin B6 13.3 ng/mL (2.1-21.7)
== END 2023-07-10 11:51 | disposition home or self-care (01) ==
LOC: HO.LAB 11:50
PROVIDERS: PCP Family Medicine; Visit Provider Internal Medicine Gastroenterology
DX: R10.33 Periumbilical pain (principal); G89.29 Other chronic pain; D64.9 Anemia, unspecified; K21.9 Gastro-esophageal reflux disease without esophagitis; G43.709 Chronic migraine without aura, not intractable, without status migrainosus; R79.82 Elevated C-reactive protein (CRP); K75.81 Nonalcoholic steatohepatitis (NASH); K52.839 Microscopic colitis, unspecified; R19.7 Diarrhea, unspecified
CPT/HCPCS: 36415; 74018; 80053; 82085; 82164; 82180; 82306; 82607; 82728; 82746; 82784; 82785; 83036; 83088; 83520; 83540; 84207; 84425; 84443; 84446; 84590; 84591; 84597; 84630; 85025; 85652; 86003; 86021; 86038; 86140; 86364; 86704; 86706; 86709; 86803; 87340

== ENCOUNTER 2023-08-14 09:48 | Outpatient (AMB) | payer MEDICAID, SELFPAY ==
--- NOTE | 2023-08-14 09:49 | A.OFFVIS_ITS ---
Intake Visit Reasons: 8 week follow up Intake Note: Coral presents as a video call today CC: today she is sick and having GI symptoms. She states that these flare ups happen often and are pretty severe. Plastic Tile Layer Required: No Allergies acetaminophen [From MIDRIN] Allergy (Unknown, Verified 08/14/23 09:49) VOMITING amitriptyline [AMITRIPTYLINE] Allergy (Unknown, Verified 08/14/23 09:49) SEVERE HALLUCINATIONS aspirin [From Fiorinal] Allergy (Unknown, Verified 08/14/23:49) Unknown butalbital [From FIORICET] Allergy (Unknown, Verified 08/14/23 09:49) VOMITING caffeine [From FIORICET] Allergy (Unknown, Verified 08/14/23:49) VOMITING cefuroxime Allergy (Unknown, Verified 08/14/23:49) Vomiting dichloralphenazone [From MIDRIN] Allergy (Unknown, Verified 08/14/23 09:49) VOMITING ferumoxytol [From FERAHEME] Allergy (Unknown, Verified 08/14/23:49) GETS REALLY SICK fluoxetine Allergy (Unknown, Verified 08/14/23 09:49) Unknown gabapentin [From NEURONTIN] Allergy (Unknown, Verified 08/14/23 09:49) PSYCHOSIS ibandronate sodium [From Boniva] Allergy (Unknown, Verified 08/14/23:49) Vomiting ibuprofen Allergy (Unknown, Verified 08/14/23 09:49) Unknown isometheptene [From MIDRIN] Allergy (Unknown, Verified 08/14/23 09:49) VOMITING levetiracetam [From KEPPRA] Allergy (Unknown, Verified 08/14/23 09:49) HALLUCINATIONS meperidine [From DEMEROL] Allergy (Unknown, Verified 08/14/23 09:49) HIVES methocarbamol [From ROBAXIN] Allergy (Unknown, Verified 08/14/23 09:49) DIARRHEA metoclopramide [From REGLAN] Allergy (Unknown, Verified 08/14/23 09:49) TWITCHING morphine [MORPHINE] Allergy (Unknown, Verified 08/14/23 09:49) VOMITING nortriptyline [NORTRIPTYLINE] Allergy (Unknown, Verified 08/14/23 09:49) PSYCHOSIS NSAIDS (Non-Steroidal Anti-Inflamma [NSAIDS (NON-STEROIDAL ANTI-INFLAMMA] Allergy (Unknown, Verified 08/14/23 09:49) GI BLEED pregabalin [From LYRICA] Allergy (Unknown, Verified 08/14/23 09:49) UNKNOWN propranolol [PROPRANOLOL] Allergy (Unknown, Verified 08/14/23 09:49) TACHYCARDIA sumatriptan [From IMITREX] Allergy (Unknown, Verified 08/14/23 09:49) IRREGULAR HEART RATE teriparatide [From Forteo] Allergy (Unknown, Verified 08/14/23 09:49) Unknown topiramate [From TOPAMAX] Allergy (Unknown, Verified 08/14/23 09:49) UNKNOWN valproic acid [VALPROIC ACID] Allergy (Unknown, Verified 08/14/23 09:49) PSYCHOSIS venlafaxine [VENLAFAXINE] Allergy (Unknown, Verified 08/14/23 09:49) DIARRHEA zolmitriptan [From ZOMIG] Allergy (Unknown, Verified 08/14/23 09:49) IRREGULAR HEART RATE valporic acid Allergy (Severe, Uncoded 08/14/23 09:49) Unknown Midrin Allergy (Unknown, Uncoded 08/14/23 09:49) Unknown Novocain Allergy (Unknown, Uncoded 08/14/23 09:49) Unknown HPI HPI 8 week follow up: Details: 57 y/o female w hx of gerd, mitochondrial dz called for follow up RECAP: Saw [facility] [place] with GERD, hx of [place] 1- for bleeding ulcer hx of chronic constipation she has been seeing doctors in [place], [facility] and [facility] she stopped reglan due to TD INTERIM: she stopped rifaximin after 5 d as it caused her diarrhea she takes movantik with her pain meds, she feels it has helped her bowel habits and less constipation she has nausea today and more stool, with indigestion and reflux stool is formed, but going more often --she feels she is full but is happy that the stool is coming out she is on zofran 8 mg ODT feesl not that great in controlling nausea A/P: 1/ Multiple reasons for her sx, POT, mitochondrial dz, possible SIBO, opiate use, prior surgery (prob had vagotomy) explained motility can be frustrating to treat, might not get her 100% better--she is happy with movantik days she uses opiates PLAN: 1/ can use miralax on days not taking movantik 2/ trial of scopolamine patch for nausea 3/ colonoscopy at furture date when sx control better and able to take prep PFSH Medical History (Updated 08/14/23 @ 10:29 by Kiana Stoll MD) Hx of skin cancer, basal cell Chronic migraine without aura Diabetes Hypersomnia Snoring Osteoporosis Chronic migraine with aura Mitochondrial ataxia syndrome Anemia Surgical History History of ankle surgery Hx of heart surgery Family History Father Parkinson disease Mother Tuberculosis Social History Household Members Other:: Long-term relationship/boyfriend, she has adult children Alcohol intake: current Alcohol intake frequency: holidays/special occasions only Patient Tobacco Use Status: Never used Tobacco Substance Use Type: Marijuana Telehealth Telehealth Telehealth Platform: Telephone Location of provider rendering services: practice address Location of patient: address on file Patient Identification confirmed using: Name, : Yes Telehealth method: voice only Patient verbally consented to treatment: Yes Patient verbally consented to billing insurance company: Yes Patient informed of any privacy concerns related to visit: Yes Minutes spent on Phone/Video with Pt.: 12 Assessment & Plan Assessment & Plan (1) Acid reflux: Code(s): K21.9 - Gastro-esophageal reflux disease without esophagitis Category: Medical Plan: see above, Medications: New scopolamine base 1 patch transdermal Q3D PRN 4 ea 0RF nausea and vomiting Coding Level of Care Code Tele Est Pt Level 3 (65372) Diagnoses Acid reflux K21.9
== END 2023-08-14 10:32 | disposition home or self-care (01) ==
LOC: HO.HGI 09:48
PROVIDERS: PCP Family Medicine; Visit Provider Internal Medicine Gastroenterology
DX: K21.9 Gastro-esophageal reflux disease without esophagitis (principal)
CPT/HCPCS: 99213

== ENCOUNTER → 2023-08-14 09:48 | Outpatient (BNVA) | payer MEDICAID, SELFPAY | PROVIDERS: PCP Family Medicine; Visit Provider Internal Medicine Gastroenterology ==

== ENCOUNTER 2023-09-22 10:34 | Outpatient (AMB) | payer MEDICAID, SELFPAY ==
--- NOTE | 2023-09-22 10:44 | A.OFFVIS_ITS ---
Vital Signs 09/22/23 10:45 Height 5 ft 5 in Weight 160 lb BMI 26.6 BP 130/82 Blood Pressure Location Rt brachial Position Sitting Respiration 17 Pulse 67 Pulse Source Pulse Oximeter Pulse Oximetry (%) 98 Oxygen Delivery Method Room Air Intake Visit Reasons: Botox (Pharm) - Conf Intake Note: Pt presents for Botox injections. Adult Ministries Director Required: No Allergies acetaminophen [From MIDRIN] Allergy (Unknown, Verified 09/22/23 10:44) VOMITING amitriptyline [AMITRIPTYLINE] Allergy (Unknown, Verified 09/22/23 10:44) SEVERE HALLUCINATIONS aspirin [From Fiorinal] Allergy (Unknown, Verified 09/22/23 10:44) Unknown butalbital [From FIORICET] Allergy (Unknown, Verified 09/22/23 10:44) VOMITING caffeine [From FIORICET] Allergy (Unknown, Verified 09/22/23 10:44) VOMITING cefuroxime Allergy (Unknown, Verified 09/22/23 10:44) Vomiting dichloralphenazone [From MIDRIN] Allergy (Unknown, Verified 09/22/23 10:44) VOMITING ferumoxytol [From FERAHEME] Allergy (Unknown, Verified 09/22/23 10:44) GETS REALLY SICK fluoxetine Allergy (Unknown, Verified 09/22/23 10:44) Unknown gabapentin [From NEURONTIN] Allergy (Unknown, Verified 09/22/23 10:44) PSYCHOSIS ibandronate sodium [From Boniva] Allergy (Unknown, Verified 09/22/23 10:44) Vomiting ibuprofen Allergy (Unknown, Verified 09/22/23 10:44) Unknown isometheptene [From MIDRIN] Allergy (Unknown, Verified 09/22/23 10:44) VOMITING levetiracetam [From KEPPRA] Allergy (Unknown, Verified 09/22/23 10:44) HALLUCINATIONS meperidine [From DEMEROL] Allergy (Unknown, Verified 09/22/23 10:44) HIVES methocarbamol [From ROBAXIN] Allergy (Unknown, Verified 09/22/23 10:44) DIARRHEA metoclopramide [From REGLAN] Allergy (Unknown, Verified 09/22/23 10:44) TWITCHING morphine [MORPHINE] Allergy (Unknown, Verified 09/22/23 10:44) VOMITING nortriptyline [NORTRIPTYLINE] Allergy (Unknown, Verified 09/22/23 10:44) PSYCHOSIS NSAIDS (Non-Steroidal Anti-Inflamma [NSAIDS (NON-STEROIDAL ANTI-INFLAMMA] Allergy (Unknown, Verified 09/22/23 10:44) GI BLEED pregabalin [From LYRICA] Allergy (Unknown, Verified 09/22/23 10:44) UNKNOWN propranolol [PROPRANOLOL] Allergy (Unknown, Verified 09/22/23 10:44) TACHYCARDIA sumatriptan [From IMITREX] Allergy (Unknown, Verified 09/22/23 10:44) IRREGULAR HEART RATE teriparatide [From Forteo] Allergy (Unknown, Verified 09/22/23 10:44) Unknown topiramate [From TOPAMAX] Allergy (Unknown, Verified 09/22/23 10:44) UNKNOWN valproic acid [VALPROIC ACID] Allergy (Unknown, Verified 09/22/23 10:44) PSYCHOSIS venlafaxine [VENLAFAXINE] Allergy (Unknown, Verified 09/22/23 10:44) DIARRHEA zolmitriptan [From ZOMIG] Allergy (Unknown, Verified 09/22/23 10:44) IRREGULAR HEART RATE valporic acid Allergy (Severe, Uncoded 08/14/23 09:49) Unknown Midrin Allergy (Unknown, Uncoded 08/14/23 09:49) Unknown Novocain Allergy (Unknown, Uncoded 08/14/23 09:49) Unknown HPI Comments Details: ? 57y/o female comes for treatment of migraines with botox.she reports left UE numbness and shooting pain The patient has increased headaches for 2 weeks towards the end. ??? Most frequent reported adverse reactions following injection of botox for chronic migraine include neck pain (9%), headache(5%), eyelid ptosis(4%), migraine(4%), muscular weakness(4%), musculuskeletal stiffness(4%), bronchitis(3%), injection site pain (3%), musculoskeletal pain(3%), myalgia(3%), facial paresis(2%), HTN(2%) and muscle spasms(2%) were discussed in detail. ??? Botulinum toxin typeA 200units Lot no [id number] expiration October 2025 was diluted with 4 cc of normal saline . ??? Muscles injected- ??? Frontalis 4 sites ??? Procerus 1 site ??? Spring Up Supervisor- 2 sites ??? Temporalis- 8 sites ??? Occipitalis- 6 sites ??? Cervical paraspinals- 4 sites ??? Trapezius- 6 sites- 15units each ??? 5 units each in 31 site ??? Total use- 200units ??? PFSH Medical History Left upper extremity numbness Hx of skin cancer, basal cell Chronic migraine without aura Diabetes Hypersomnia Snoring Osteoporosis Chronic migraine with aura Mitochondrial ataxia syndrome Anemia Surgical History History of ankle surgery Hx of heart surgery Family History Father Parkinson disease Mother Tuberculosis Social History Household Members Other:: Long-term relationship/boyfriend, she has adult children Alcohol intake: current Alcohol intake frequency: holidays/special occasions only Patient Tobacco Use Status: Never used Tobacco Substance Use Type: Marijuana Physical Exam Vital Signs: Last Vital Signs Pulse 67 09/22/23 10:45 Resp 17 09/22/23 10:45 BP 130/82 09/22/23 10:45 Pulse Ox 98 09/22/23 10:45 Oxygen Delivery Method Room Air 09/22/23 10:45 BMI result Body Mass Index 26.6 Const General: comfortable and no acute distress Orientation/consciousness: patient oriented x3 Neuro General: patient oriented x3 Psych Speech and movement: Clear speech present Affect: normal affect Attitude: cooperative Thought process: Normal thought process present Thought content: Normal thought content present Office Procedures Botulinum toxin Injection 21183 - Migraine Procedure code (CPT) selection complete Office Meds onabotulinumtoxinA 200 unit solution for injection Performing Provider: Ying Espinal MD [place] [facility] [place] [facility] Administered by: Ying Espinal MD on 09/22/23 11:09 Dose Route Admin Location Dispensed Lot Number Expiration Date [facility] Environmental Field Team Member 200 unit IM 200 units [id number] 10/04/25 0873-6406-11 ALLERGAN/BOTOX Comments: see HPI Assessment & Plan Assessment & Plan (1) Chronic migraine without aura: Code(s): G43.709 - Chronic migraine without aura, not intractable, without status migrainosus Category: Medical (2) Left upper extremity numbness: Code(s): R20.0 - Anesthesia of skin Category: Medical Plan She is doing well on ubrelvy 100mg and botox - reports some breakthrough episodes 2 week towards the end . will consider Botox every 10 weeks - her insurance did not approve EMG Left UE to evaluate left UE numbness She tolerated the procedure well she will call with any side effects Orders: Orders NE nerve conduction velocity Today R20.0 - Anesthesia of skin AMB Botulinum toxin Injection - Patient Supplied Today G43.709 - Chronic migraine without aura, not intractable, without status migrainosus NE electromyogram (EMG) Today R20.0 - Anesthesia of skin Medications: New onabotulinumtoxinA 200 units IM ONCE 1 ea 0RF migraine G43.709 - Chronic migraine without aura, not intractable, without status migrainosus Coding Level of Care Code Est Pt Level 1 (00232) Diagnoses Chronic migraine without aura G43.709 Left upper extremity numbness R20.0 CPT Codes Botox Injection - Botox 3: 30344 - Migraine ([id number])
[2023-09-22 10:45] VITALS: BP 130/82; PULSE 67; RESP 17; O2SAT 98; BMI 26.6
== END 2023-09-22 11:02 | disposition home or self-care (01) ==
PROVIDERS: PCP Family Medicine; Visit Provider Psychiatry & Neurology Neurology
DX: G43.709 Chronic migraine without aura, not intractable, without status migrainosus (principal)
CPT/HCPCS: 64615

== ENCOUNTER → 2023-09-22 10:34 | Outpatient (BNVA) | payer MEDICAID, SELFPAY | PROVIDERS: PCP Family Medicine; Visit Provider Psychiatry & Neurology Neurology | DX: G43.709 Chronic migraine without aura, not intractable, without status migrainosus (principal); R20.0 Anesthesia of skin | CPT/HCPCS: 64615; 99211; J0585 ==

== ENCOUNTER 2023-11-11 13:40 | Outpatient (REF) | payer MEDICAID, SELFPAY ==
--- NOTE | 2023-11-11 13:43 | EMG_ITS ---
Chief complaint: Left hand numbness, at least 2 years. History of mitochondrial neuropathy, migraines. Reason for referral: Evaluate for neuropathy Referred by: Dr. Espinal Procedure done: Left upper extremity NCS/EMG Precautions and/or limitations: On Coumadin The limb temperature was monitored continuously and remained between 32-36 degrees C during the performance of the NCS. Ulnar motor NCS was performed with moderate elbow flexion between 70-90 degrees, with across-elbow distance of 10 cm. Nerve Conduction Studies Anti Sensory Summary Table ?Stim Site NR Onset (ms) Norm Onset (ms) Peak (ms) Norm Peak (ms) O-P Amp (?V) Norm O-P Amp Site1 Site2 Delta-0 (ms) Dist (cm) Wade (m/s) Norm Wade (m/s) Left Median Anti Sensory (2nd Digit) Wrist ? 2.3 3.0 <3.6 44.7 >10 Wrist 2nd Digit 2.3 14.0 61 Left Radial Anti Sensory (Thumb) Forearm ? 1.7 2.2 <3.1 23.3 Forearm Thumb 1.7 0.0 Left Ulnar Anti Sensory (5th Digit) Wrist ? 2.4 3.0 <3.7 10.4 >15.0 Wrist 5th Digit 2.4 14.0 58 Motor Summary Table ?Stim Site NR Onset (ms) Norm Onset (ms) O-P Amp (mV) Norm O-P Amp iAmp (mV) Amp (1st) (%) Site1 Site2 Delta-0 (ms) Dist (cm) Wade (m/s) Norm Wade (m/s) Left Median Motor (Abd Poll Brev) Wrist ? 3.4 <3.9 7.9 >4.5 9.6 100.0 Elbow Wrist 3.7 22.0 59 >45 Elbow ? 7.1 8.1 10.0 102.5 Left Ulnar Motor (Abd Dig Minimi) Wrist ? 2.9 <3.0 4.4 >5 4.8 100.0 B Elbow Wrist 3.2 20.0 63 >45 B Elbow ? 6.1 4.1 4.6 93.2 A Elbow B Elbow 1.7 10.0 59 >45 A Elbow ? 7.8 3.8 4.3 86.4 Left UlnarH Motor (FDI) Wrist ? 3.4 <3.0 10.7 >5 12.4 100.0 B Elbow Wrist 3.3 20.0 61 >45 B Elbow ? 6.7 6.9 8.2 64.5 A Elbow B Elbow 1.7 10.0 59 >45 A Elbow ? 8.4 6.5 7.7 60.7 EMG ?Side Muscle Nerve Root Ins Act Fibs Psw Amp Dur Poly Recrt Int Pat Comment Left 1stDorInt Ulnar C8-T1 Nml Nml Nml Nml Nml 0 Nml Complete Left Biceps Musculocut C5-6 Nml Nml Nml Nml Nml 0 Nml Complete Left Triceps Radial C6-7-8 Nml Nml Nml Nml Nml 0 Nml Complete Left Deltoid Axillary C5-6 Nml Nml Nml Nml Nml 0 Nml Complete Left FlexCarpiUln Ulnar C8,T1 Nml Nml Nml Nml Nml 0 Nml Complete FINDINGS: Left ulnar motor nerve, recording ADM, showed normal distal latency, small amplitude and slight slowing of conduction velocity across the elbow. Left ulnar motor nerve, recording FDI, showed prolonged distal latency, normal amplitude and slight slowing of conduction velocity across the elbow. Left ulnar sensory nerve showed small amplitude. All other nerves tested were within normal. Concentric needle EMG was performed in selected muscles of the left upper extremity. Study did not reveal signs of electric abnormalities as shown in the table above. IMPRESSION: 1. This is an abnormal study. 2. 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 3. There is no electrodiagnostic evidence for median neuropathy, brachial plexopathy, or cervical radiculopathy. Thank you for your kind referral. Romy Rodarte MD, CANDIE Board Certified, [place] Board [employer] and Rehabilitation (ABPMR) Board Certified, [place] Board of Electrodiagnostic Medicine (ABEM) CODIN [id number] [facility]
== END 2023-11-11 13:41 | disposition home or self-care (01) ==
LOC: HO.NEURO 13:40
PROVIDERS: PCP Family Medicine; Visit Provider Psychiatry & Neurology Neurology
DX: R20.0 Anesthesia of skin (principal)
CPT/HCPCS: 95886; 95909

== ENCOUNTER → 2023-11-11 13:43 | Outpatient (BNV) | payer MEDICAID, SELFPAY | PROVIDERS: PCP Family Medicine; Visit Provider Physical Medicine & Rehabilitation | DX: G56.22 Lesion of ulnar nerve, left upper limb (principal) | CPT/HCPCS: 95886; 95909 ==

== ENCOUNTER 2023-12-30 10:10 | Outpatient (AMB) | payer MEDICAID, SELFPAY ==
--- NOTE | 2023-12-30 10:18 | MHC.OFFVIS ---
Vital Signs 12/30/23 10:19 Height 5 ft 5 in Weight 160 lb BMI 26.6 BP 102/60 Blood Pressure Location Rt brachial Position Sitting Respiration 16 Pulse 64 Pulse Source Pulse Oximeter Pulse Oximetry (%) 94 Oxygen Delivery Method Room Air Intake Visit Reasons: Botox(pharm) Intake Note: Pt presents tot he office for Botox injections for Migraines. Family Psychologist Required: No Allergies acetaminophen [From MIDRIN] Allergy (Unknown, Verified 12/30/23 10:19) VOMITING amitriptyline [AMITRIPTYLINE] Allergy (Unknown, Verified 12/30/23 10:19) SEVERE HALLUCINATIONS aspirin [From Fiorinal] Allergy (Unknown, Verified 12/30/23 10:19) Unknown butalbital [From FIORICET] Allergy (Unknown, Verified 12/30/23 10:19) VOMITING caffeine [From FIORICET] Allergy (Unknown, Verified 12/30/23 10:19) VOMITING cefuroxime Allergy (Unknown, Verified 12/30/23 10:19) Vomiting dichloralphenazone [From MIDRIN] Allergy (Unknown, Verified 12/30/23 10:19) VOMITING ferumoxytol [From FERAHEME] Allergy (Unknown, Verified 12/30/23 10:19) GETS REALLY SICK fluoxetine Allergy (Unknown, Verified 12/30/23 10:19) Unknown gabapentin [From NEURONTIN] Allergy (Unknown, Verified 12/30/23 10:19) PSYCHOSIS ibandronate sodium [From Boniva] Allergy (Unknown, Verified 12/30/23 10:19) Vomiting ibuprofen Allergy (Unknown, Verified 12/30/23 10:19) Unknown isometheptene [From MIDRIN] Allergy (Unknown, Verified 12/30/23 10:19) VOMITING levetiracetam [From KEPPRA] Allergy (Unknown, Verified 12/30/23 10:19) HALLUCINATIONS meperidine [From DEMEROL] Allergy (Unknown, Verified 12/30/23 10:19) HIVES methocarbamol [From ROBAXIN] Allergy (Unknown, Verified 12/30/23 10:19) DIARRHEA metoclopramide [From REGLAN] Allergy (Unknown, Verified 12/30/23 10:19) TWITCHING morphine [MORPHINE] Allergy (Unknown, Verified 12/30/23 10:19) VOMITING nortriptyline [NORTRIPTYLINE] Allergy (Unknown, Verified 12/30/23 10:19) PSYCHOSIS NSAIDS (Non-Steroidal Anti-Inflamma [NSAIDS (NON-STEROIDAL ANTI-INFLAMMA] Allergy (Unknown, Verified 12/30/23 10:19) GI BLEED pregabalin [From LYRICA] Allergy (Unknown, Verified 12/30/23 10:19) UNKNOWN propranolol [PROPRANOLOL] Allergy (Unknown, Verified 12/30/23 10:19) TACHYCARDIA sumatriptan [From IMITREX] Allergy (Unknown, Verified 12/30/23 10:19) IRREGULAR HEART RATE teriparatide [From Forteo] Allergy (Unknown, Verified 12/30/23 10:19) Unknown topiramate [From TOPAMAX] Allergy (Unknown, Verified 12/30/23 10:19) UNKNOWN valproic acid [VALPROIC ACID] Allergy (Unknown, Verified 12/30/23 10:19) PSYCHOSIS venlafaxine [VENLAFAXINE] Allergy (Unknown, Verified 12/30/23 10:19) DIARRHEA zolmitriptan [From ZOMIG] Allergy (Unknown, Verified 12/30/23 10:19) IRREGULAR HEART RATE valporic acid Allergy (Severe, Uncoded 12/30/23 10:19) Unknown Midrin Allergy (Unknown, Uncoded 12/30/23 10:19) Unknown Novocain Allergy (Unknown, Uncoded 12/30/23 10:19) Unknown Medication List - Last Reconciled 12/30/23 by Ying Espinal MD baclofen 20 mg PO BEDTIME buspirone 30 mg PO BID calcium citrate-vitamin D3 200 mg-6.25 mcg (250 unit) 1 tab PO BID cetirizine 10 mg PO DAILY cholecalciferol (vitamin D3) 50 mcg PO DAILY cyanocobalamin (vitamin B-12) 500 mcg PO DAILY enoxaparin mg subcut DIRECTED PRN fluticasone propionate 50 mcg/actuation (Flonase Allergy Relief) 1 spray intranasal DAILY hyoscyamine sulfate 0.125 mg PO QID latanoprost 0.005% 1 drp ophthalmic (eye) BEDTIME lorazepam 1 mg PO QID magnesium oxide mg PO morphine ER 15 mg PO Q12H naloxegol (Movantik) 25 mg PO DAILY onabotulinumtoxinA (Botox) to be injected to face an dneck muscles subcutaneously ONCE EVERY 90 DAYS; ondansetron 8 mg PO Q8H orphenadrine citrate 60 mg IM DAILY PRN oxycodone-acetaminophen 10-325 mg 1 tab PO TID pantoprazole 40 mg PO BID pravastatin 40 mg PO BEDTIME promethazine 25 mg PO TID PRN propranolol 20 mg PO ONCE propranolol ER 60 mg PO DAILY rifaximin 550 mg PO TID 2 weeks sennosides-docusate sodium 8.6-50 mg (Stimulant Laxative Plus) 1 tab PO BID tizanidine 6 mg PO QID Transderm-Scop (scopolamine base) 1 patch topical Q3D PRN NS ubrogepant (Ubrelvy) 100 mg PO DAILY PRN venlafaxine ER 150 mg PO DAILY warfarin 5 - 10 mg PO DAILY zolpidem 10 mg PO BEDTIME PRN HPI Comments Details: ? 58y/o female comes for treatment of migraines with botox How many migraine days prior to botox-20 How long do the migraines last=2-3 Intensity of migraine-01/13 ER visits related to aitifegx-1-3 Effectiveness of botox from last treatment(s) How many migraine days since receiving treatment:10 Change? in intensity of migraine?decreased Change in frequency of migraine?decreased Change in use of acute medication for migraine?decreased Change in quality of life?improved ER visits related to migraine?none Explanation for any gaps in treatment Have at least three months elapsed since last treatment (Last botox date - frequency of injections)09/27 ??? Most frequent reported adverse reactions following injection of botox for chronic migraine include neck pain (9%), headache(5%), eyelid ptosis(4%), migraine(4%), muscular weakness(4%), musculuskeletal stiffness(4%), bronchitis(3%), injection site pain (3%), musculoskeletal pain(3%), myalgia(3%), facial paresis(2%), HTN(2%) and muscle spasms(2%) were discussed in detail. ??? Botulinum toxin typeA 200units Lot no [id number] expiration Mar 2026 was diluted with 4 cc of normal saline . ??? Muscles injected- ??? Frontalis 4 sites ??? Procerus 1 site ??? Gas Reverser- 2 sites ??? Temporalis- 8 sites ??? Occipitalis- 6 sites ??? Cervical paraspinals- 4 sites ??? Trapezius- 6 sites- 15units each ??? 5 units each in 31 site ??? Total use- 200units ??? PFSH Medical History Left upper extremity numbness Hx of skin cancer, basal cell Chronic migraine without aura Diabetes Hypersomnia Snoring Osteoporosis Chronic migraine with aura Mitochondrial ataxia syndrome Anemia Surgical History History of ankle surgery Hx of heart surgery Family History Father Parkinson disease Mother Tuberculosis Social History Household Members Other:: Long-term relationship/boyfriend, she has adult children Alcohol intake: current Alcohol intake frequency: holidays/special occasions only Patient Tobacco Use Status: Never used Tobacco Substance Use Type: Marijuana Physical Exam Vital Signs: Last Vital Signs Pulse 64 12/30/23 10:19 Resp 16 12/30/23 10:19 BP 102/60 12/30/23 10:19 Pulse Ox 94 12/30/23 10:19 Oxygen Delivery Method Room Air 12/30/23 10:19 BMI result Body Mass Index 26.6 Const General: comfortable and no acute distress Orientation/consciousness: patient oriented x3 Neuro General: patient oriented x3 Psych Speech and movement: Clear speech present Affect: normal affect Attitude: cooperative Thought process: Normal thought process present Thought content: Normal thought content present Office Procedures Botulinum toxin Injection 33599 - Migraine Procedure code (CPT) selection complete Office Meds onabotulinumtoxinA 200 unit solution for injection Performing Provider: Ying Espinal MD Performing Location: [facility] [place] [facility] Administered by: Ying Espinal MD on 12/30/23 11:29 Dose Route Admin Location Dispensed Lot Number Expiration Date [facility] Hospital Sales Representative 200 unit subcut 200 units [id number] 03/06/26 4138-9827-41 ALLERGAN/BOTOX Comments: see HPI Assessment & Plan Assessment & Plan (1) Chronic migraine without aura: Code(s): G43.709 - Chronic migraine without aura, not intractable, without status migrainosus Category: Medical Qualifiers: Status migrainosus presence: without status migrainosus Intractability: intractable Qualified Code(s): G43.719 - Chronic migraine without aura, intractable, without status migrainosus Plan She is doing well on ubrelvy 100mg and botox - reports some breakthrough episodes 2 week towards the end . will consider Botox every 10 weeks - her insurance did not approve She tolerated the procedure well she will call with any side effects Orders: Orders AMB Botulinum toxin Injection - Patient Supplied Today G43.719 - Chronic migraine without aura, intractable, without status migrainosus Medications: New onabotulinumtoxinA 200 units subcut ONCE 1 ea 0RF migraines G43.719 - Chronic migraine without aura, intractable, without status migrainosus Coding Level of Care Code Est Pt Level 1 (05353) Diagnoses Intractable chronic migraine without aura and without status migrainosus G43.719 Status migrainosus presence: without status migrainosus Intractability: intractable CPT Codes Botox Injection - Botox 3: 98348 - Migraine ([id number])
[2023-12-30 10:19] VITALS: BP 102/60; PULSE 64; RESP 16; O2SAT 94; BMI 26.6
== END 2023-12-30 10:40 | disposition home or self-care (01) ==
PROVIDERS: PCP Family Medicine; Visit Provider Psychiatry & Neurology Neurology
DX: G43.719 Chronic migraine without aura, intractable, without status migrainosus (principal)
CPT/HCPCS: 64615

== ENCOUNTER → 2023-12-30 10:10 | Outpatient (BNVA) | payer MEDICAID, SELFPAY | PROVIDERS: PCP Family Medicine; Visit Provider Psychiatry & Neurology Neurology | DX: G43.719 Chronic migraine without aura, intractable, without status migrainosus (principal) | CPT/HCPCS: 64615; 99211; J0585 ==

== ENCOUNTER 2024-02-04 09:29 | Outpatient (REF) | payer MEDICAID, SELFPAY ==
[2024-02-04 11:40] LABS: CDiff Gene PCR NEGATIVE (Negative)
[2024-02-05 15:48] LABS: Adenovirus F 40/41 Not Detected (Not Detect.); Astrovirus Not Detected (Not Detect.); Campylobacter Not Detected (Not Detect.); Cryptosporidium Not Detected (Not Detect.); Cyclospora cayetanensis Not Detected (Not Detect.); E. coli EAEC Not Detected (Not Detect.); E. coli EPEC Not Detected (Not Detect.); E. coli ETEC Not Detected (Not Detect.); E. coli STEC Not Detected (Not Detect.); Entamoeba histolytica Not Detected (Not Detect.); Giardia lamblia Not Detected (Not Detect.); Norovirus GI/GII Not Detected (Not Detect.); Plesiomonas shigelloides Not Detected (Not Detect.); Rotavirus A Not Detected (Not Detect.); Salmonella Not Detected (Not Detect.); Sapovirus Not Detected (Not Detect.); Shigella sp./EIEC Not Detected (Not Detect.); Vibrio Not Detected (Not Detect.); Vibrio Cholerae Not Detected (Not Detect.); Yersinia enterocolitica Not Detected (Not Detect.)
== END 2024-02-04 09:30 | disposition home or self-care (01) ==
LOC: HO.LNP 09:29
PROVIDERS: Visit Provider Internal Medicine Gastroenterology
DX: R19.7 Diarrhea, unspecified (principal)
CPT/HCPCS: 87493; 87507

== ENCOUNTER 2024-03-25 11:13 | Outpatient (REF) | payer MEDICAID, SELFPAY | END 2024-03-25 11:14 | disposition home or self-care (01) | LOC: HO.XRAY 11:13 | PROVIDERS: PCP Family Medicine; Visit Provider Internal Medicine Gastroenterology | DX: K21.9 Gastro-esophageal reflux disease without esophagitis (principal); R19.8 Other specified symptoms and signs involving the digestive system and abdomen | CPT/HCPCS: 74018; 99212 ==

== ENCOUNTER 2024-03-25 11:13 | Outpatient (AMB) | payer MEDICAID, SELFPAY ==
--- NOTE | 2024-03-25 11:34 | A.OFFVIS_ITS ---
Vital Signs 03/25/24 11:36 Height 5 ft 5 in Weight 160 lb BMI 26.6 BP 140/70 H Blood Pressure Location Lt brachial Position Sitting Pulse 65 Intake Visit Reasons: r/s from 01/21 2 mnth follow up Intake Note: Patient follow up for acid reflex. Patient cc: nauseas with migraine, diarrhea with some BM accident on her self, abdominal pain and bloating, acid reflex, and some swallowing problems Presentation Designer Required: No Accompanied by: Self / Same As Patient Allergies acetaminophen [From MIDRIN] Allergy (Unknown, Verified 03/25/24 11:33) VOMITING amitriptyline [AMITRIPTYLINE] Allergy (Unknown, Verified 03/25/24 11:33) SEVERE HALLUCINATIONS aspirin [From Fiorinal] Allergy (Unknown, Verified 03/25/24 11:33) Unknown butalbital [From FIORICET] Allergy (Unknown, Verified 03/25/24 11:33) VOMITING caffeine [From FIORICET] Allergy (Unknown, Verified 03/25/24 11:33) VOMITING cefuroxime Allergy (Unknown, Verified 03/25/24 11:33) Vomiting dichloralphenazone [From MIDRIN] Allergy (Unknown, Verified 03/25/24 11:33) VOMITING ferumoxytol [From FERAHEME] Allergy (Unknown, Verified 03/25/24 11:33) GETS REALLY SICK fluoxetine Allergy (Unknown, Verified 03/25/24 11:33) Unknown gabapentin [From NEURONTIN] Allergy (Unknown, Verified 03/25/24 11:33) PSYCHOSIS ibandronate sodium [From Boniva] Allergy (Unknown, Verified 03/25/24 11:33) Vomiting ibuprofen Allergy (Unknown, Verified 03/25/24 11:33) Unknown isometheptene [From MIDRIN] Allergy (Unknown, Verified 03/25/24 11:33) VOMITING levetiracetam [From KEPPRA] Allergy (Unknown, Verified 03/25/24 11:33) HALLUCINATIONS meperidine [From DEMEROL] Allergy (Unknown, Verified 03/25/24 11:33) HIVES methocarbamol [From ROBAXIN] Allergy (Unknown, Verified 03/25/24 11:33) DIARRHEA metoclopramide [From REGLAN] Allergy (Unknown, Verified 03/25/24 11:33) TWITCHING morphine [MORPHINE] Allergy (Unknown, Verified 03/25/24 11:33) VOMITING nortriptyline [NORTRIPTYLINE] Allergy (Unknown, Verified 03/25/24 11:33) PSYCHOSIS NSAIDS (Non-Steroidal Anti-Inflamma [NSAIDS (NON-STEROIDAL ANTI-INFLAMMA] Allergy (Unknown, Verified 03/25/24 11:33) GI BLEED pregabalin [From LYRICA] Allergy (Unknown, Verified 03/25/24 11:33) UNKNOWN propranolol [PROPRANOLOL] Allergy (Unknown, Verified 03/25/24 11:33) TACHYCARDIA sumatriptan [From IMITREX] Allergy (Unknown, Verified 03/25/24 11:33) IRREGULAR HEART RATE teriparatide [From Forteo] Allergy (Unknown, Verified 03/25/24 11:33) Unknown topiramate [From TOPAMAX] Allergy (Unknown, Verified 03/25/24 11:33) UNKNOWN valproic acid [VALPROIC ACID] Allergy (Unknown, Verified 03/25/24 11:33) PSYCHOSIS venlafaxine [VENLAFAXINE] Allergy (Unknown, Verified 03/25/24 11:33) DIARRHEA zolmitriptan [From ZOMIG] Allergy (Unknown, Verified 03/25/24 11:33) IRREGULAR HEART RATE valporic acid Allergy (Severe, Uncoded 12/30/23 10:19) Unknown Midrin Allergy (Unknown, Uncoded 12/30/23 10:19) Unknown Novocain Allergy (Unknown, Uncoded 12/30/23 10:19) Unknown HPI HPI r/s from 01/21 2 mnth follow up: Details: 58 y/o female w hx of gerd, mitochondrial dz seen for follow up RECAP: [place] [facility] [place]D, hx of [place] 1- for bleeding ulcer hx of chronic constipation she has been seeing doctors in [place], [facility] and [facility] she stopped reglan due to TD INTERIM: she has been having fecal continence and not aware of it, wearing pads she has been having numbness she has bad reflux some distention and blaoting she is not sure if movantik worked or not EXAM: GENERAL: The patient is well developed and nontoxic. VITAL SIGNS:see workflow HEENT: Nonicteric sclerae, PERRLA, EOMI. Oropharynx clear. Moist mucous membranes. Conjunctivae appear well perfused. No thyroid mass. CHEST: Chest wall is nontender. HEART: Regular rate and rhythm without murmurs. LUNGS: Clear to auscultation bilaterally. ABDOMEN: Soft, positive bowel sounds, nontender, no organomegaly.no flank tenderness SKIN: No rash, no excessive bruising, petechiae, or purpura. NEUROLOGIC: Cranial nerves II-XII intact without motor/sensory deficit. Psych: normal affect A/P: 1/ Multiple reasons for her sx, POT, mitochondrial dz, possible SIBO, opiate use, prior surgery (prob had vagotomy)--might have overflow vs sphincter issues or neuropathy causing incontinence PLAN: 1/ EGD and colo r/o low lying rectal lesion --check sphincter tone same time, EGD for reflux, will send colyte and zofran with erythromycin for motility also get pre op with anesthesia 2/ Mr defecography 3/ KUB in case of overflow PFSH Medical History Left upper extremity numbness Hx of skin cancer, basal cell Chronic migraine without aura Diabetes Hypersomnia Snoring Osteoporosis Chronic migraine with aura Mitochondrial ataxia syndrome Anemia Surgical History History of ankle surgery Hx of heart surgery Family History Father Parkinson disease Mother Tuberculosis Social History Household Members Other:: Long-term relationship/boyfriend, she has adult children Alcohol intake: current Alcohol intake frequency: holidays/special occasions only Patient Tobacco Use Status: Never used Tobacco Substance Use Type: Marijuana Physical Exam Vital Signs: Last Vital Signs Pulse 65 03/25/24 11:36 BP 140/70 H 03/25/24 11:36 BMI result Body Mass Index 26.6 Assessment & Plan Assessment & Plan (1) Mild acid reflux: Code(s): K21.9 - Gastro-esophageal reflux disease without esophagitis Category: Medical Plan: see above (2) Abnormal bowel habits: Code(s): R19.8 - Other specified symptoms and signs involving the digestive system and abdomen Category: Medical Plan: see above Orders: Orders XR KUB Today K21.9 - Gastro-esophageal reflux disease without esophagitis, R19.8 - Other specified symptoms and signs involving the digestive system and abdomen MR pelvis wo con Today R19.8 - Other specified symptoms and signs involving the digestive system and abdomen Medications: New peg 3350-electrolytes 236-22.74-6.74 -5.86 gram (Golytely) until fecal effluent is clear 240 mL PO Q10M 4,000 mL 0RF ondansetron 4 mg PO Q8H PRN 10 tabs 0RF nausea and vomiting azithromycin take before bowel prep 1,000 mg (2 x 500 mg) PO ONCE 1 day 2 tabs 0RF Coding Level of Care Code Est Pt Level 4 (23876) Diagnoses Mild acid reflux K21.9 Abnormal bowel habits R19.8
[2024-03-25 11:36] VITALS: BP 140/70; PULSE 65; BMI 26.6
== END 2024-03-25 12:17 | disposition home or self-care (01) ==
PROVIDERS: PCP Family Medicine; Visit Provider Internal Medicine Gastroenterology
DX: K21.9 Gastro-esophageal reflux disease without esophagitis (principal); R19.8 Other specified symptoms and signs involving the digestive system and abdomen
CPT/HCPCS: 99214

== ENCOUNTER 2024-04-04 09:49 | Outpatient (AMB) | payer MEDICAID, SELFPAY ==
--- NOTE | 2024-04-04 10:25 | MHC.OFFVIS ---
Intake Visit Reasons: Botox (Pharm) Allergies acetaminophen [From MIDRIN] Allergy (Unknown, Verified 03/25/24 11:33) VOMITING amitriptyline [AMITRIPTYLINE] Allergy (Unknown, Verified 03/25/24 11:) SEVERE HALLUCINATIONS aspirin [From Fiorinal] Allergy (Unknown, Verified 03/25/24 11:33) Unknown butalbital [From FIORICET] Allergy (Unknown, Verified 03/25/24 11:33) VOMITING caffeine [From FIORICET] Allergy (Unknown, Verified 03/25/24 11:33) VOMITING cefuroxime Allergy (Unknown, Verified 03/25/24 11:33) Vomiting dichloralphenazone [From MIDRIN] Allergy (Unknown, Verified 03/25/24 11:33) VOMITING ferumoxytol [From FERAHEME] Allergy (Unknown, Verified 03/25/24 11:) GETS REALLY SICK fluoxetine Allergy (Unknown, Verified 03/25/24 11:33) Unknown gabapentin [From NEURONTIN] Allergy (Unknown, Verified 03/25/24:) PSYCHOSIS ibandronate sodium [From Boniva] Allergy (Unknown, Verified 03/25/24 11:33) Vomiting ibuprofen Allergy (Unknown, Verified 03/25/24 11:33) Unknown isometheptene [From MIDRIN] Allergy (Unknown, Verified 03/25/24 11:33) VOMITING levetiracetam [From KEPPRA] Allergy (Unknown, Verified 03/25/24 11:33) HALLUCINATIONS meperidine [From DEMEROL] Allergy (Unknown, Verified 03/25/24 11:33) HIVES methocarbamol [From ROBAXIN] Allergy (Unknown, Verified 03/25/24 11:33) DIARRHEA metoclopramide [From REGLAN] Allergy (Unknown, Verified 03/25/24 11:33) TWITCHING morphine [MORPHINE] Allergy (Unknown, Verified 03/25/24 11:33) VOMITING nortriptyline [NORTRIPTYLINE] Allergy (Unknown, Verified 03/25/24 11:33) PSYCHOSIS NSAIDS (Non-Steroidal Anti-Inflamma [NSAIDS (NON-STEROIDAL ANTI-INFLAMMA] Allergy (Unknown, Verified 03/25/24 11:33) GI BLEED pregabalin [From LYRICA] Allergy (Unknown, Verified 03/25/24 11:33) UNKNOWN propranolol [PROPRANOLOL] Allergy (Unknown, Verified 03/25/24 11:33) TACHYCARDIA sumatriptan [From IMITREX] Allergy (Unknown, Verified 03/25/24 11:33) IRREGULAR HEART RATE teriparatide [From Forteo] Allergy (Unknown, Verified 03/25/24 11:33) Unknown topiramate [From TOPAMAX] Allergy (Unknown, Verified 03/25/24 11:33) UNKNOWN valproic acid [VALPROIC ACID] Allergy (Unknown, Verified 03/25/24 11:33) PSYCHOSIS venlafaxine [VENLAFAXINE] Allergy (Unknown, Verified 03/25/24 11:33) DIARRHEA zolmitriptan [From ZOMIG] Allergy (Unknown, Verified 03/25/24 11:33) IRREGULAR HEART RATE valporic acid Allergy (Severe, Uncoded 12/30/23 10:19) Unknown Midrin Allergy (Unknown, Uncoded 12/30/23 10:19) Unknown Novocain Allergy (Unknown, Uncoded 12/30/23 10:19) Unknown Medication List - Last Reconciled 04/04/24 by Ying Espinal MD azithromycin 1,000 mg (2 x 500 mg) PO ONCE 1 day baclofen 20 mg PO BEDTIME buspirone 30 mg PO BID calcium citrate-vitamin D3 200 mg-6.25 mcg (250 unit) 1 tab PO BID cetirizine 10 mg PO DAILY cholecalciferol (vitamin D3) 50 mcg PO DAILY cyanocobalamin (vitamin B-12) 500 mcg PO DAILY enoxaparin mg subcut DIRECTED PRN fluticasone propionate 50 mcg/actuation (Flonase Allergy Relief) 1 spray intranasal DAILY hyoscyamine sulfate 0.125 mg PO QID latanoprost 0.005% 1 drp ophthalmic (eye) BEDTIME lorazepam 1 mg PO QID magnesium oxide mg PO morphine ER 15 mg PO Q12H naloxegol (Movantik) 25 mg PO DAILY onabotulinumtoxinA (Botox) to be injected to face an dneck muscles subcutaneously ONCE EVERY 90 DAYS; ondansetron 8 mg PO Q8H ondansetron 4 mg PO Q8H PRN orphenadrine citrate 60 mg IM DAILY PRN oxycodone-acetaminophen 10-325 mg 1 tab PO TID pantoprazole 40 mg PO BID peg 3350-electrolytes 236-22.74-6.74 -5.86 gram (Golytely) 240 mL PO Q10M pravastatin 40 mg PO BEDTIME promethazine 25 mg PO TID PRN propranolol 20 mg PO ONCE propranolol ER 60 mg PO DAILY rifaximin 550 mg PO TID 2 weeks sennosides-docusate sodium 8.6-50 mg (Stimulant Laxative Plus) 1 tab PO BID tizanidine 6 mg PO QID Transderm-Scop (scopolamine base) 1 patch topical Q3D PRN NS ubrogepant (Ubrelvy) 100 mg PO DAILY PRN venlafaxine ER 150 mg PO DAILY warfarin 5 - 10 mg PO DAILY zolpidem 10 mg PO BEDTIME PRN HPI Comments Details: ? 58y/o female comes for treatment of migraines with botox How many migraine days prior to botox-20 How long do the migraines last=2-3 Intensity of migraine-10 ER visits related to [id number] Effectiveness of botox from last treatment(s) How many migraine days since receiving treatment:10 Change? in intensity of migraine?decreased Change in frequency of migraine?decreased Change in use of acute medication for migraine?decreased Change in quality of life?improved ER visits related to migraine?none Explanation for any gaps in treatment Have at least three months elapsed since last treatment (Last botox date - frequency of injections)3 months ??? Most frequent reported adverse reactions following injection of botox for chronic migraine include neck pain (9%), headache(5%), eyelid ptosis(4%), migraine(4%), muscular weakness(4%), musculuskeletal stiffness(4%), bronchitis(3%), injection site pain (3%), musculoskeletal pain(3%), myalgia(3%), facial paresis(2%), HTN(2%) and muscle spasms(2%) were discussed in detail. ??? Botulinum toxin typeA 200units Lot no [id number] expiration Dec 2025 was diluted with 4 cc of normal saline . ??? Muscles injected- ??? Frontalis 4 sites ??? Procerus 1 site ??? Armature Inspector- 2 sites ??? Temporalis- 8 sites ??? Occipitalis- 6 sites ??? Cervical paraspinals- 4 sites ??? Trapezius- 6 sites- 15units each ??? 5 units each in 31 site ??? Total use- 200units ??? PFSH Medical History Left upper extremity numbness Hx of skin cancer, basal cell Chronic migraine without aura Diabetes Hypersomnia Snoring Osteoporosis Chronic migraine with aura Mitochondrial ataxia syndrome Anemia Surgical History History of ankle surgery Hx of heart surgery Family History Father Parkinson disease Mother Tuberculosis Social History Household Members Other:: Long-term relationship/boyfriend, she has adult children Alcohol intake: current Alcohol intake frequency: holidays/special occasions only Patient Tobacco Use Status: Never used Tobacco Substance Use Type: Marijuana Physical Exam Const General: comfortable and no acute distress Orientation/consciousness: patient oriented x3 Neuro General: patient oriented x3 Psych Speech and movement: Clear speech present Affect: normal affect Attitude: cooperative Thought process: Normal thought process present Thought content: Normal thought content present Office Procedures Botulinum toxin Injection 73077 - Migraine Procedure code (CPT) selection complete Office Meds onabotulinumtoxinA 200 unit solution for injection Performing Provider: Ying Espinal MD Performing Location: [facility] [place] [facility] Administered by: Ying Espinal MD on 04/04/24 10:35 Dose Route Admin Location Dispensed Lot Number Expiration Date [facility] Bench Lay Out Technician 200 unit subcut 200 units 6559-1560-36 ALLERGAN/BOTOX Comments: see hpi Assessment & Plan Assessment & Plan (1) Chronic migraine without aura: Code(s): G43.709 - Chronic migraine without aura, not intractable, without status migrainosus Category: Medical Qualifiers: Status migrainosus presence: without status migrainosus Intractability: intractable Qualified Code(s): G43.719 - Chronic migraine without aura, intractable, without status migrainosus Plan She is doing well on ubrelvy 100mg and botox - reports some breakthrough episodes 2 week towards the end . will consider Botox every 10 weeks - her insurance did not approve She tolerated the procedure well she will call with any side effects Orders: Orders AMB Botulinum toxin Injection - Patient Supplied N/C Today G43.719 - Chronic migraine without aura, intractable, without status migrainosus Medications: New onabotulinumtoxinA 200 units subcut ONCE 1 ea 0RF migraine G43.719 - Chronic migraine without aura, intractable, without status migrainosus Coding Level of Care Code Est Pt Level 1 (27992) Diagnoses Intractable chronic migraine without aura and without status migrainosus G43.719 Status migrainosus presence: without status migrainosus Intractability: intractable CPT Codes Botox Injection - Botox 3: 52594 - Migraine ([id number])
== END 2024-04-04 10:35 | disposition home or self-care (01) ==
PROVIDERS: PCP Family Medicine; Visit Provider Psychiatry & Neurology Neurology
DX: G43.719 Chronic migraine without aura, intractable, without status migrainosus (principal)
CPT/HCPCS: 64615

== ENCOUNTER → 2024-04-04 09:49 | Outpatient (BNVA) | payer MEDICAID, SELFPAY | PROVIDERS: PCP Family Medicine; Visit Provider Psychiatry & Neurology Neurology | DX: G43.719 Chronic migraine without aura, intractable, without status migrainosus (principal) | CPT/HCPCS: 64615; 99211; J0585 ==

== ENCOUNTER 2024-07-19 09:12 | Outpatient (AMB) | payer MEDICAID, SELFPAY ==
[2024-07-19 09:21] VITALS: PULSE 64; O2SAT 97; BMI 25.8
--- NOTE | 2024-07-19 09:21 | A.OFFVIS_ITS ---
Vital Signs 07/19/24 09:21 Height 5 ft 5 in Weight 155 lb BMI 25.8 Pulse 64 Pulse Source Pulse Oximeter Pulse Oximetry (%) 97 Oxygen Delivery Method Room Air Intake Visit Reasons: Botox(pharm) Intake Note: Patient presents for botox injection. patient supplied Allergies acetaminophen [From MIDRIN] Allergy (Unknown, Verified 07/19/24 09:24) VOMITING amitriptyline [AMITRIPTYLINE] Allergy (Unknown, Verified 07/19/24 09:24) SEVERE HALLUCINATIONS aspirin [From Fiorinal] Allergy (Unknown, Verified 07/19/24 09:24) Unknown butalbital [From FIORICET] Allergy (Unknown, Verified 07/19/24 09:24) VOMITING caffeine [From FIORICET] Allergy (Unknown, Verified 07/19/24 09:24) VOMITING cefuroxime Allergy (Unknown, Verified 07/19/24 09:24) Vomiting dichloralphenazone [From MIDRIN] Allergy (Unknown, Verified 07/19/24 09:24) VOMITING ferumoxytol [From FERAHEME] Allergy (Unknown, Verified 07/19/24 09:24) GETS REALLY SICK fluoxetine Allergy (Unknown, Verified 07/19/24 09:24) Unknown gabapentin [From NEURONTIN] Allergy (Unknown, Verified 07/19/24 09:24) PSYCHOSIS ibandronate sodium [From Boniva] Allergy (Unknown, Verified 07/19/24 09:24) Vomiting ibuprofen Allergy (Unknown, Verified 07/19/24 09:24) Unknown isometheptene [From MIDRIN] Allergy (Unknown, Verified 07/19/24 09:24) VOMITING levetiracetam [From KEPPRA] Allergy (Unknown, Verified 07/19/24 09:24) HALLUCINATIONS meperidine [From DEMEROL] Allergy (Unknown, Verified 07/19/24 09:24) HIVES methocarbamol [From ROBAXIN] Allergy (Unknown, Verified 07/19/24 09:24) DIARRHEA metoclopramide [From REGLAN] Allergy (Unknown, Verified 07/19/24 09:24) TWITCHING morphine [MORPHINE] Allergy (Unknown, Verified 07/19/24 09:24) VOMITING nortriptyline [NORTRIPTYLINE] Allergy (Unknown, Verified 07/19/24 09:24) PSYCHOSIS NSAIDS (Non-Steroidal Anti-Inflamma [NSAIDS (NON-STEROIDAL ANTI-INFLAMMA] Allergy (Unknown, Verified 07/19/24 09:24) GI BLEED pregabalin [From LYRICA] Allergy (Unknown, Verified 07/19/24 09:24) UNKNOWN propranolol [PROPRANOLOL] Allergy (Unknown, Verified 07/19/24 09:24) TACHYCARDIA sumatriptan [From IMITREX] Allergy (Unknown, Verified 07/19/24 09:24) IRREGULAR HEART RATE teriparatide [From Forteo] Allergy (Unknown, Verified 07/19/24 09:24) Unknown topiramate [From TOPAMAX] Allergy (Unknown, Verified 07/19/24 09:24) UNKNOWN valproic acid [VALPROIC ACID] Allergy (Unknown, Verified 07/19/24 09:24) PSYCHOSIS venlafaxine [VENLAFAXINE] Allergy (Unknown, Verified 07/19/24 09:24) DIARRHEA zolmitriptan [From ZOMIG] Allergy (Unknown, Verified 07/19/24 09:24) IRREGULAR HEART RATE valporic acid Allergy (Severe, Uncoded 07/19/24 09:24) Unknown Midrin Allergy (Unknown, Uncoded 07/19/24 09:24) Unknown Novocain Allergy (Unknown, Uncoded 07/19/24 09:24) Unknown Medication List - Last Reconciled 07/19/24 by Ying Espinal MD baclofen 20 mg PO BEDTIME buspirone 30 mg PO BID calcium citrate-vitamin D3 200 mg-6.25 mcg (250 unit) 1 tab PO BID cetirizine 10 mg PO DAILY cholecalciferol (vitamin D3) 50 mcg PO DAILY cyanocobalamin (vitamin B-12) 500 mcg PO DAILY enoxaparin mg subcut DIRECTED PRN fluticasone propionate 50 mcg/actuation (Flonase Allergy Relief) 1 spray intranasal DAILY hyoscyamine sulfate 0.125 mg PO QID latanoprost 0.005% 1 drp ophthalmic (eye) BEDTIME lorazepam 1 mg PO QID magnesium oxide mg PO morphine ER 15 mg PO Q12H onabotulinumtoxinA (Botox) to be injected to face and neck muscles subcutaneously once; 90 days ondansetron 8 mg PO Q8H ondansetron 4 mg PO Q8H PRN orphenadrine citrate 60 mg IM DAILY PRN oxycodone-acetaminophen 10-325 mg 1 tab PO TID pantoprazole 40 mg PO BID pravastatin 40 mg PO BEDTIME promethazine 25 mg PO TID PRN propranolol 20 mg PO ONCE propranolol ER 60 mg PO DAILY sennosides-docusate sodium 8.6-50 mg (Stimulant Laxative Plus) 1 tab PO BID tizanidine 6 mg PO QID ubrogepant (Ubrelvy) 100 mg PO DAILY PRN venlafaxine ER 150 mg PO DAILY warfarin 5 - 10 mg PO DAILY zolpidem 10 mg PO BEDTIME PRN HPI Comments Details: ? 58y/o female comes for treatment of migraines with botox How many migraine days prior to botox-20 How long do the migraines last=2-3 Intensity of migraine-01/13 ER visits related to [id number] Effectiveness of botox from last treatment(s) How many migraine days since receiving treatment:10 Change? in intensity of migraine?decreased Change in frequency of migraine?decreased Change in use of acute medication for migraine?decreased Change in quality of life?improved ER visits related to migraine?none Explanation for any gaps in treatment Have at least three months elapsed since last treatment (Last botox date - frequency of injections)3 months ??? Most frequent reported adverse reactions following injection of botox for chronic migraine include neck pain (9%), headache(5%), eyelid ptosis(4%), migraine(4%), muscular weakness(4%), musculuskeletal stiffness(4%), bronchitis(3%), injection site pain (3%), musculoskeletal pain(3%), myalgia(3%), facial paresis(2%), HTN(2%) and muscle spasms(2%) were discussed in detail. ??? Botulinum toxin typeA 200units Lot no [id number] expiration July 2026was diluted with 4 cc of normal saline . ??? Muscles injected- ??? Frontalis 4 sites ??? Procerus 1 site ??? Ec Teacher- 2 sites ??? Temporalis- 8 sites ??? Occipitalis- 6 sites ??? Cervical paraspinals- 4 sites ??? Trapezius- 6 sites- 15units each ??? 5 units each in 31 site ??? Total use- 200units ??? PFSH Medical History Left upper extremity numbness Hx of skin cancer, basal cell Chronic migraine without aura Diabetes Hypersomnia Snoring Osteoporosis Chronic migraine with aura Mitochondrial ataxia syndrome Anemia Surgical History History of ankle surgery Hx of heart surgery Family History Father Parkinson disease Mother Tuberculosis Social History Household Members Other:: Long-term relationship/boyfriend, she has adult children Alcohol intake: current Alcohol intake frequency: holidays/special occasions only Patient Tobacco Use Status: Never used Tobacco Substance Use Type: Marijuana Physical Exam Vital Signs: Last Vital Signs Pulse 64 07/19/24 09:21 Pulse Ox 97 07/19/24 09:21 Oxygen Delivery Method Room Air 07/19/24 09:21 BMI result Body Mass Index 25.8 Const General: comfortable and no acute distress Orientation/consciousness: patient oriented x3 Neuro General: patient oriented x3 Psych Speech and movement: Clear speech present Affect: normal affect Attitude: cooperative Thought process: Normal thought process present Thought content: Normal thought content present Office Procedures Botulinum toxin Injection 46890 - Migraine Procedure code (CPT) selection complete Office Meds onabotulinumtoxinA 200 unit solution for injection Performing Provider: Ying Espinal MD Performing Location: [facility] [place] [facility] Administered by: Ying Espinal MD on 07/19/24 10:12 Dose Route Admin Location Dispensed Lot Number Expiration Date [facility] Signal System Testing Maintainer 200 unit subcut 200 units [id number] ALLERGAN/BOTOX Assessment & Plan Assessment & Plan (1) Chronic migraine without aura: Code(s): G43.709 - Chronic migraine without aura, not intractable, without status m igrainosus Category: Medical Qualifiers: Status migrainosus presence: without status migrainosus Intractability: intractable Qualified Code(s): G43.719 - Chronic migraine without aura, intractable, without status migrainosus Plan She is doing well on ubrelvy 100mg and botox - reports some breakthrough episodes 2 week towards the end . will consider Botox every 10 weeks - her ins urance did not approve She tolerated the procedure well she will call with any side effects Orders: Orders AMB Botulinum toxin Injection - Patient Supplied N/C Today G43.719 - Chronic migraine without aura, intractable, without status migrainosus Medications: New onabotulinumtoxinA 200 units subcut ONCE 1 ea 0RF migraine G43.719 - Chronic migraine without aura, intractable, without status migrainosus Coding Level of Care Code Est Pt Level 1 (39406) Diagnoses Intractable chronic migraine without aura and without status migrainosus G43.719 Status migrainosus presence: without status migrainosus Intractability: intractable CPT Codes Botox Injection - Botox 3: 79764 - Migraine ([id number])
--- OUTSIDE RECORDS SUMMARY | 2024-07-19 09:53 | XMS_ITS | Clinical Summary ---
Author Organization [employer] Address [address] [place] [address] [address] [place] [address] Care Team Providers Care Repairer And Checker Name Role Phone Unavailable Primary Care Provider Unavailabl e Allergies No known active allergies Medications warfarin (Coumadin) 1 MG tablet Take by mouth. Take as directed per After Visit Summary. Active busPIRone (Buspar) 30 MG tablet Take 30 mg by mouth 2 times daily. Active calcium citrate 315 mg + D2 6.25 mcg tablet calcium citrate 315 mg calcium-vitamin D3 6.25 mcg (250 unit) tablet TAKE 1 TABLET BY MOUTH TWICE DAILY Active cephalexin (Keflex) 500 MG capsule TAKE 1 CAPSULE BY MOUTH THREE TIMES DAILY FOR 7 DAYS 4 Active cetirizine (ZyrTEC) 10 MG tablet cetirizine 10 mg tablet TAKE 1 TABLET BY MOUTH EVERY DAY 7 Active coenzyme Q-10 400 MG capsule Activ e cyanocobalamin (Vitamin B-12) 500 MCG tablet Take 500 mcg by mouth in the morning. 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 Randhawa clarification on medicaction 06/08/2024 8:00 AM EST Office Visit [facility] [address] [place] [address] Eden Randhaaw, DDS 06/02/2024 Telephone [facility] [address] [place] [address] Eden Randhawa, DDS 05/18/2024 Telephone [facility] [address] [place] [address] Josie Welch 05/11/2024 1:30 PM EST Office Visit [facility] [address] [place] [address] Eden Randhawa, DDS 04/28/2024 Telephone [facility] [address] [place] [address] pain/medication 04/22/2024 11:00 AM EST Office Visit [facility] [address] [place] [address] Josie Welch 04/20/2024 Refill [facility] [address] [place] [address] Aneudy Jain DMD from Last 3 Months Social History Tobacco Use Types Packs/Day Years Used Date Smoking Tobacco: Never Smokeless Tobacco: Never Tobacco Cessation:Counseling Given: Not Answered Alcohol Use Standard Drinks/Week Comments Never 0 (1 standard drink = 0.6 oz pur e alcohol) Comments Unknown Sex and Gender Information Value Date Recorded Sex Assigned at Female 02/03/2022 10:25 AM EDT Legal Sex Female 10:25 AM EDT Gender Identity Female 02/03/2022 10:25 AM EDT Sexual Orientation Straight 02/03/2022 10 :25 AM EDT Last Filed Vital Signs Vital Sign Reading Time Taken Comments Blood Pressure 126/70 06/08/2024 8:09 AM EST Pulse - - Temperature - - Respiratory Rate - - Oxygen Saturation - - Inhaled Oxygen Concentration - - Weight - - Height - - Body Mass Index - - Plan of Treatment Health Maintenance Due Date Last Done Comments CT Colonography 1963 Colonoscopy 1963 Colorectal Cancer Screening 1963 Dental Prophylaxis 1963 Depression Screening 1963 FIT DNA/Cologuard 1963 FIT 1963 FOBT 1963 HIV Screening 1963 SDOH Screening 1963 Sigmoidoscopy 1963 Alcohol/Substance Use Screening 1975 Hepatitis C Screening 11/16/1981 Pneumococcal Vaccine: 50+ Years (1 of 2 - PCV) 11/16/1982 Pap Smear 11/16/1984 Cervical Cancer Screening 11/16/1993 HPV/Cotest 11/16/1993 Mammogram 2003 Dental Oral Exam 09/23/2013 03/24/2013 Zoster Vaccines (1 of 2) 11/16/2013 Dental X-Ray: Bitewings 02/17/2014 02/16/2013 Dental X-Ray: Full Mouth 02/18/2016 02/16/2013 RSV Patients and Patients Aged 60 years or older (1 - Risk 60-74 years 1-dose series) 2023 COVID-19 Vaccine ( season) 2023 03/18/2021, 09/05/2020, 08/06/2020 Tobacco Screening 06/08/2025 06/08/2024 DTaP/Tdap/Td Vaccines (2 - Td or Tdap) 03/06/2026 03/06/2016, 01/20/2011 Influenza Vaccine Completed 12/22/2023, , 01/01/2022, Additional history exists HIB Vaccines Aged Out No longer eligi ble based on patient's age to complete this topic HPV Vaccines Aged Out No longer eligi ble based on patient's age to complete this topic Hepatitis A Vaccines Aged Out No long er eligible based on patient's age to complete this topic Hepatitis B Vaccines Aged Out No long er eligible based on patient's age to complete this topic IPV Vaccines Aged Out No longer eligi ble based on patient's age to complete this topic Meningococcal Vaccine Aged Out No glenroy nunu eligible based on patient's age to complete this topic RSV under 20 months Aged Out No longe r eligible based on patient's age to complete this topic Rotavirus Vaccines Aged Out No longer eligible based on patient's age to complete this topic Procedures Procedure Name Priority Date/Time Associated Diagnosis Comments 9 EXTRACTION, ERUPTED TOOTH OR EXPOSED ROOT (ELEVATION/FORCEPS REMOVAL) Routine 06/08/2024 8:00 AM EST 10 EXTRACTION, ERUPTED TOOTH OR EXPOSED ROOT (ELEVATION/FORCEPS REMOVAL) Routine 06/08/2024 8:00 AM EST 8 EXTRACTION, ERUPTED TOOTH OR EXPOSED ROOT (ELEVATION/FORCEPS REMOVAL) Routine 06/08/2024 8:00 AM EST NO CHARGE PROCEDURE Routine 05/11/2024 1 :30 PM EST INTRAORAL - PERIAPICAL FIRST RADIOGRAPHIC IMAGE Routine 04/22/2024 11:00 AM EST CASE PRESENTATION, DETAILED AND EXTENSIVE TREATMENT PLANNING Routine 04/22/2024 11:00 AM EST LIMITED ORAL EVALUATION - PROBLEM FOCUSED Routine 04/22/2024 11:00 AM EST COMPREHENSIVE ORAL EVALUATION - NEW OR ESTABLISHED PATIENT Routine 03/24/2013 12:00 AM EST INTRAORAL - COMPLETE SERIES OF RADIOGRAPHIC IMAGES Routine 02/16/2013 12:00 AM EST from Last 3 Months or Most Recently Relevant to Health Maintenance Insurance [facility] STAND ADULT
--- OUTSIDE RECORDS SUMMARY | 2024-07-19 09:53 | XMS_ITS | Encounter Summary ---
Author Organization [employer] Address [address] [place] [address] [address] [place] [address] Care Team Providers Care Clam Sorter Name Role Phone Unavailable Primary Care Provider Unavailabl e Reason for Visit * Reason Comments Med Refill Encounter Details Date Type Department Care Team (Late st Contact Info) Description 07/29/2023 Refill [facility] [address] [place] [address] Aneudy Jain DMD [address] [place] [address] Social History Tobacco Use Types Packs/Day Years Used Date Smoking Tobacco: Never Assessed Comments Unknown Sex and Gender Information Value Date Recorded Sex Assigned at Female 02/03/2022 10:25 AM EDT Legal Sex Female 10:25 AM EDT Gender Identity Female 02/03/2022 10:25 AM EDT Sexual Orientation Straight 02/03/2022 10 :25 AM EDT documented as of this encounter Miscellaneous Notes * Telephone Encounter - Aneudy Jain DMD - 07/29/2023 8:40 AM EDT Please follow up with Dr. Campbell documented in this encounter Plan of Treatment Not on file documented as of this encounter Visit Diagnoses Not on filedocumented in this encounter
--- OUTSIDE RECORDS SUMMARY | 2024-07-19 09:53 | XMS_ITS | Encounter Summary ---
Author Organization [employer] Address [address] [place] [address] [address] [place] [address] Care Team Providers Care Motor Setter Name Role Phone Unavailable Primary Care Provider Unavailabl e Reason for Visit * Reason Onset Date Comments Dr. Randhawa clarification on medicaction 025 Encounter Details Date Type Department Care Team ([facility] st Contact Info) Description 06/09/2024 Telephone [facility] [address] [place] [address] Eden Randhawa, MONET [address] [place], [place] [id number] Dr. Randhawa clarification on medicaction Social History Tobacco Use Types Packs/Day Years Used Date Smoking Tobacco: Never Smokeless Tobacco: Never Alcohol Use Standard Drinks/Week Comments Never 0 [...] encounter Miscellaneous Notes * Telephone Encounter - Yanira Pinedo - 06/09/2024 12:15 PM EST Message for Dr. Randhawa Patient looking to speak with provider. States did not know medication was going to be sent over topharmacy. She states she has a mechanical heart valve and assumes this is the reason why she received the amox script. Would like clarification prior to begin using the script DR documented in this encounter Plan of Treatment Not on file documented as of this encounter Visit Diagnoses Not on filedocumented in this encounter
== END 2024-07-19 10:05 | disposition home or self-care (01) ==
PROVIDERS: PCP Family Medicine; Visit Provider Psychiatry & Neurology Neurology
DX: G43.719 Chronic migraine without aura, intractable, without status migrainosus (principal)
CPT/HCPCS: 64615

== ENCOUNTER → 2024-07-19 09:12 | Outpatient (BNVA) | payer MEDICAID, SELFPAY | PROVIDERS: PCP Family Medicine; Visit Provider Psychiatry & Neurology Neurology | DX: G43.719 Chronic migraine without aura, intractable, without status migrainosus (principal) | CPT/HCPCS: 64615; 99211; J0585 ==

== ENCOUNTER 2024-09-01 09:40 | Day surgery (SDC) | payer MEDICAID, SELFPAY ==
--- OUTSIDE RECORDS SUMMARY | 2024-08-23 08:40 | XMS_ITS | Clinical Summary ---
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 Randhawa clarification on medicaction 06/08/2024 8:00 AM EST Office Visit [facility] [address] [place] [address] Eden Randhawa DDS 06/02/2024 Telephone [facility] [address] [place] [address] Eden Randhawa, DDS from Last 3 Months Social History Tobacco [...] Screening 1963 SDOH Screening 1963 Sigmoidoscopy 1963 Disability Screening 1963 Alcohol/Substance Use Screening 1975 Hepatitis C [...] patient's age to complete this topic Meningococcal B Vaccine Aged Out No l onger eligible based on patient's age to complete [...] (ELEVATION/FORCEPS REMOVAL) Routine 06/08/2024 8:00 AM EST COMPREHENSIVE ORAL EVALUATION - NEW OR ESTABLISHED PATIENT Routine 03/24/2013 12:00 AM EST INTRAORAL - COMPLETE SERIES OF RADIOGRAPHIC IMAGES Routine 02/16/2013 12:00 AM EST from Last 3 Months or Most Recently Relevant to Health Maintenance Insurance [facility] MEDICAID STAND ADULT
--- OUTSIDE RECORDS SUMMARY | 2024-08-23 08:40 | XMS_ITS | Data Portability ---
Author Organization [place] - [facility] Address [address] [place] [id number] Care Team Providers Care Nurse Epidemiologist Name Role Phone ATA LINO Primary Care Provider [phone] Assessment Encounter Date Assessment Date Assessment LastModified by Organization Details LastModified Time 03/26/2021 03/26/2021 Overview/History : 55 y/o F with PMH of Mitochondrial Disease, POTS, Frequent Kidney Infections, new to and new to provider, is seeking further evaluation for a COVID-19 test due to having sore throat, body aches, and sinus congestion x 3 days. The patient states that this sometimes occurs with her Mitochondrial disease, but given that [place] is coming up she wants to be safe and not expose anyone. The patient has been using nasal spray for her symptoms. The patient last had known COVID-19 exposure on 03/08. The patient has already tested negative for COVID-19 since then. Patient is fully vaccinated for COVID-19 with booster. Patient denies any chest pain, shortness of breath, abdominal pain, nausea, vomiting, diarrhea, fevers, chills, weakness, fatigue, lethargy, or loss of smell/taste. Exam: AAOx3 overweight, female, non-toxic appearing, in no acute distress, ambulatory Head: NC/AT EENT: (+) moist mucous membranes, (-) erythema/bulging of TMs, (-) EAC drainage/edema, (-) tonsillar erythema/edema/e xudates Heart: RRR with no murmurs, rubs or gallops Lungs: CTABL with no ronchi, wheezes or rales present Abd: Soft, non-tender, non-distended Back: (-) CVA tenderness Extremities: Freely moving with no edema, 2+ distal pulses DDx considered, but not limited to: COVID-19 versus Other Viral Syndrome Work up/Results: Patient is non-toxic appearing in no acute distress. Patient's vital signs are stable. Patient is afebrile to 97.4. HR is 66. BP is 122/84. RR is 18. O2sat is 97% on RA. Patient has a sore throat with body aches, but no recent known COVID-19 exposure. Will assess with rapid COVID-19 test and if negative will send out PCR. Rapid COVID-19 test on scene is negative. COVID-19 PCR test ordered, obtained and sent to [facility]. Plan/Discussion: Advised patient that rapid COVID-19 test on scene is negative. Advised patient that DH will be in contact with only positive COVID-19 results as soon as they are received. Advised patient to quarantine until results are received. Advised patient to stay hydrated with lots of oral fluids and to take Tylenol as needed for fevers if one were to develop. Patient verbalized her understanding. Advised to monitor for fevers, chills, nausea, vomiting, diarrhea, chest pain, shortness of breath, abdominal pain, weakness, lethargy, and fatigue and if this is to occur then to call 911 and go to the ER or call back for re-evaluation. Patient verbalized her understanding of the diagnosis and need for follow up with PCP, as well as ER/ return precautions. Proper Personal Protective Equipment (PPE), including gloves, eye protection, N95 mask, gown, and shoe covers were donned and doffed appropriately and all equipment cleaned using approved technique with germicidal disposable wipes prior to and after care of this patient according to [facility]'s infection prevention protocols. Not available 03/26/2021 21:36:47 04/24/2021 04/24/2021 Overview/History : 55 YO F new to provider but known to Pt is c/o of sinus pressure and villeda/migraine today Sinus pressure has been ongoing for a couple of days , villeda has gotten somewhat worse last night but is tolerable. She does have hx of migraines that she takes botox and prn medicines for. Last doese of prn medicine this morning w/ limited relief per patient. She also has some stuffy, runny nose, post nasal drip, she also has some vomiting last episode of vomiting was this morning. She is feeling nauseous. N/V began last night. She does have zofran and she took a dose w/o much relief thus far. She was able to take some of her meds this morning. Despite this sx she is staying well hydrated as she has a port where she can give herself fluids. She has no other assoc sx's at this time and she denies change in vision, change in smell or taste, numbness/tinglin g, weakness, abd pain, dysuria, diarrhea or constipation, neck stiffness, neck pain, sore throat. She is requesting a covid test. She denies any [place]won exposure but her child does have some cold sx's per her report. Exam: Vitals: VSS and afebrile Constitutional: 55 yo Well developed, well nourished, pleasant patient in no apparent distress. She is sitting upright comfortably on her couch with her child watching children's TV and she has a barking dog that she is tolerating well despite villeda. She is nontoxic. Eyes: PERRL at 4mm, EOM's intact, No swelling, no discharge, sclera / conjunctiva clear ENT: BL inflamed turbinates, TMs/ Canals clear without evidence of infection, no erythema/ exudate noted in oropharynx, moist mucous membranes CV: Normal HR, reg rhythm, no rubs/ murmurs/ gallops heard, 2+ radial pulses bilaterally, no edema and no tenderness to the calves BL Pulm: breath sounds clear and equal bilaterally, no wheeze/ rhonchi or rales on auscultation. Speaks in full sentences, no increased work of breathing. GI: Soft, non-tender to palpation. No masses, normal bowel sounds. MS: Self ambulatory patient, moves all limbs without deficit, no evidence of trauma Neuro: No focal deficits, CN? s II-XII grossly normal, alert and orineted x4, sensation is intact, equal strength BL Skin: No rash Psych: Calm, cooperative, non-manic DDx considered, but not limited to: Viral Syndrome - most likely given congestion, sinus pressure, and her current sx's she is covid neg Sinusitis bacterial v viral - likley some mild sinusitis sx's d/t L inflamed turbinates and frontal villeda. Sinuses nontender to palpation however. Believe pt if has true sinusitis it is viral vs bacterail at this time d/t time frame of only 5 days at this point COVID - rapid neg on scene. may be having mild sx's. pcr pending. she is full vax Flu - no body aches, fever, chills. Day 5 of sx's outside of window where testing would be beneficial Migraine - pt having usual migraine sx's and likley is cause of some vomiting Overall pt does not want any additional meds for migarine. Rest and recuperate. She has prn meds which she can take as needed to take the edge off. Currently migraine does not seem too severe as she is comfortbaly sitting on the couch watching TV w/ her chills. No neuro sx's at this time. VSS and afebrile. Meningitis/Encep halitis - no fever, no neuro deficits or sx's, VSS , usual migraine sx's. Unlikely infectious. No stiff neck. Gastroenteritis - considered d/t nuasea but most likely d/t migraine at this time. No other GI sx's and no abd cramping or discomfort at this time. Work up/Results: Rapid COVID neg COVID pcr pend Plan/Discussion: Viral Syndrome: -Most likley based on sx's -Known sick contact in child who has similar sx's -Rapid covid neg -She is having mild sx's at this time, she is with stable VS and she is nontoxic -Isolate per CDC guidelines until PCR test returns -Likely exacerbating some migraines that pt has chronicallya and causing some nausea as per above -F/u emergently with any neurological defcitis, change in vision, weakness, cp, SOB, resp distress, stiff neck. Do not believe pt migraine warrants any addiotnal meds at this time. Rest and recuperate is best at this point. Pt does not want extra meds at this time would like to rest. Primary reason for visit it covid test and eval of sinuses Pt is on agreement and verbalizes understanding with the above plans at this time. Pt has no other questions or concerns at this time. All questiosn are answered to the best of my ability. Pt thanks us for our visit today. In order to obtain further information and compare any laboratory results/values, I have accessed old patient records. This information was pertinent in my medical decision making today. [email or web address] Not available 04/24/2021 12:36:01 Plan of Treatment Reminders Order Date Submit Date Provider Last Modified By Organization Details Last Modified Time Details Appointments None recorded. Lab unlisted lab - covid-19 (novel coronavirus ) PCR 2021 022 [email or web address] [facility] (Centralized Electronic Ordering - All Locations), Patient Can Go To The Location Of Their Choice, [id number] 2 10:33:43 rapid SARS CoV 2 Ag, QL IA, respiratory specimen 2021 022 [email or web address] [facility], [address] [place], [address], 12:21:02 rapid SARS CoV 2 Ag, QL IA, respiratory specimen 2020 021 [facility] [place], [address] [place] [address], [phone], 21:37:22 unlisted lab - covid-19 (novel coronavirus ) PCR 2020 021 GODWIN [facility] (Centralized Electronic Ordering - All Locations), Patient Can Go To The Location Of Their Choice, [id number] 20:37:09 Referral None recorded. Procedures None recorded. Surgeries None recorded. Imaging None recorded. Medication Orders None recorded. Patient TargetsNo targets recorded. Patient InstructionsNo instructions recorded. Reason for Referral None Reported. Results Created Date Observation Date Name Description Value Unit Range Abnormal Flag Note LastModifiedBy Organization Detail LastModifiedTime 03/26/20 21 03/27/2021 COVID -19 (NOVE L CORON AVIRU S) PCR covid-19 PCR specimen source NASAL Not Available [facility] (Centralized Electronic Ordering - All Locations) Patient Can Go To The Location Of Their Choice, [id number] 03/28/2021 20:37:09 03/26/20 21 03/28/2021 COVID -19 (NOVE L CORON AVIRU S) PCR covid-19 PCR result (neg) normal NEGAT STEFANI 2019- novel Coron aviru s (2018nCoV ) not detec slim by real- time RT-PC R. Note: If clini eve suspi cion for COVID -19 is high, nina nue to maint ain preca ution s and consi leatha repea t testi ng. Resul t repor slim to the DP. To preve nt error s in diagn osis, test resul ts shoul d be inter prete d in the yashira xt of clini eve findi ngs and other labor atory data. Rare polym orphi sms exist that could lead to false -nega tive or false -posi tive resul ts. If resul ts obtai iain do not match the clini eve findi ngs, addit ional testi ng shoul d be consi dered . This test has been autho rized by the FDA under an Emerg ency Use Autho rizat ion (EUA) for use by autho rized labor atori es. Testi ng perfo rmed by real time PCR [facility] [employer]0 SARS- CoV-2 test. Not Available [facility] (Centralized Electronic Ordering - All Locations) Patient Can Go To The Location Of Their Choice, [id number] 03/28/2021 20:37:09 03/26/20 21 03/26/2021 rapid SARS CoV 2 Ag, QL IA, respi rator y speci men Covid-19 (ref: neg) negati ve Not Available [facility] [address] [place], [address], 03/26/2021 21:36:53 03/26/20 21 03/26/2021 rapid SARS CoV 2 Ag, QL IA, respi rator y speci men Control Visual ized/V alid Not Available [facility] [address] [place], [address], 03/26/2021 21:36:53 03/26/20 21 03/26/2021 rapid SARS CoV 2 Ag, QL IA, respi rator y speci men Location [facility], [address] [place] [address], [id number] Not Available [facility] [address], [place], [address], 03/26/2021 21:36:53 04/24/19 22 04/26/20212018 NOVEL CORON AVIRU S, PCR covid-19, PCR NOT DETEC SLIM Refer ence range : NOT DETEC SLIM (NOTE ) A Not Detec slim resul t means that SARS- CoV-2 RNA was not prese nt in the speci men above the limit of detec tion. A Not Detec slim resul t does not rule out the possi bilit y of COVID -19 and shoul d not be used as the sole basis for treat ment or patie nt manag ement decis ions. If COVID -19 is still suspe cted, based on expos ure histo ry toget her with other clini eve findi ngs, re-te sting shoul d be consi dered in the yashira xt of clini eve obser vatio ns and epide miolo gical data for patie nt manag ement decis ions. = Test Metho d: Nucle ic Acid Ampli ficat ion Test inclu ding rever se trans cript ion polym erase chain react ion (RT-P CR) and trans cript ion media slim ampli ficat ion (TMA) . The test metho d meets the [place] Cente rs for Disea se Contr ol and preve ntion (CDC) pre depar ture and arriv al requi remen t for viral test for COVID -19 dated 2020. Testi ng requi remen ts for trave ling brook jett e with time. The patie nt is respo nsibl e for deter minin g the test requi remen ts for each natio n while they are trave ling. This test has been autho rized by the FDA under an Emerg ency Use Autho rizat ion (EUA) for use by autho rized labor atori es. = Pleas e revie w the Fact Sheet s and FDA autho rized label ing avail able for healt h care provi ders and patie nts using the follo wing websi emily: https ://betzaida w.que stdia gnost ics.c om/ho me/Co vid-1 9/HCP /Ques tLDT/ fact- sheet .html https ://betzaida mcghee.brisa karimiia gnost ics.c om/ho me/Co vid-1 9/Pat ients /Ques tLDT/ fact- sheet .html = Due to the curre nt publi c healt h emerg ency, [facility] is accep ting sampl es from appro priat e clini eve sourc es colle cted using wide varie ty of swabs and trans port media for COVID -19. Not detec slim test resul ts deriv ed from speci mens recei marisa in non- comme rcial ly manuf actur ed viral colle ction kits or those not yet autho rized by FDA for COVID -19 testi ng shoisreal d be cauti ously evalu ated and take extra preca ution s such as addit ional clini eve monit oring , inclu ding colle ction of an addit ional speci men. = Addit ional infor deejay cervantes about COVID -19 can be found at the [facility] websi te: www.[address] uestD Shareightgno [employer]/ Covid 19. Test Perfo rmed by: [facility], [address], [place]. [address] . Labor atory Direc tor: Alon ruiz MD. Not Available [facility] (Centralized Electronic Ordering - All Locations) Patient Can Go To The Location Of Their Choice, [id number] 04/26/2021 23:05:47 04/24/19 22 04/24/2021 rapid SARS CoV 2 Ag, QL IA, respi rator y speci men Covid-19 (ref: neg) negati ve Not Available [facility] [address], [place], [address], 04/24/2021 12:16:45 04/24/19 22 04/24/2021 rapid SARS CoV 2 Ag, QL IA, respi rator y speci men Control Visual ized/V alid Not Available [facility] [address], [place], [address], 04/24/2021 12:16:45 04/24/19 22 04/24/2021 rapid SARS CoV 2 Ag, QL IA, respi rator y speci men Location [facility], [address] [place] [address], [id number] Not Available [facility] [address] [place], [address], 04/24/2021 12:16:45 Result Notes None recorded. Procedures Surgical History Date Name Laterality Status Provider Name and Address Organization Details Recorded Time mechanical heart valve replacement completed KIRBY PETERS [address] [place], [address], [place] [facility] 03/26/2021 20:40:09 insertion of implantable venous access port completed KIRBY PETERS [address] [place], [address], [place] [facility] 03/26/2021 20:40:20 Imaging Results None recorded. Procedure Notes None recorded. Medical Equipment None Reported. Medications Name Sig Start Date Stop Date Status Note LastModified by Organization Details LastModified Time amoxicillin 500 mg capsule TAKE 4 CAPSULES BY MOUTH 1 HOUR BEFORE APPOINTME NT active Not Available Not Available No t Available furosemide 40 mg tablet TAKE 1 TABLET BY MOUTH EVERY DAY NEEDED active Not Available Not Available No t Available latanoprost 0.005 % eye drops INSTILL 1 DROP INTO BOTH EYES AT BEDTIME active Not Available Not Available No t Available clotrimazol e 10 mg jordan DISSOLVE 1 LOZENGE BY MOUTH FIVE TIMES DAILY FOR 14 DAYS active Not Available Not Available No t Available nystatin 100,000 unit/mL oral suspension SHAKE LIQUID AND TAKE 5 ML BY MOUTH FOUR TIMES DAILY FOR 10 DAYS active Not Available Not Available No t Available prednisone 10 mg tablet TAKE 4 TABLET BY MOUTH DAILY FOR 4 DAYS THEN 3 TABLET DAILY FOR 3 DAYS THEN 2 TABLET DAILY FOR 2 DAYS THEN 1 TABLET DAILY FOR 1 DAY THEN STOP active Not Available Not Available No t Available loperamide 2 mg capsule TAKE 2 CAPSULE BY MOUTH ONCE THEN TAKE 1 CAPSULE BY MOUTH AFTER EACH LOOSE STOOL MAX 8 A DAY active Not Available Not Available No t Available trazodone 50 mg tablet TAKE 1/2 TABLET BY MOUTH EVERY MORNING AND 1/2 TABLET BY MOUTH EVERY EVENING active Not Available Not Available No t Available cetirizine 10 mg tablet TAKE 1 TABLET BY MOUTH EVERY DAY active Not Available Not Available No t Available fosfomycin tromethamin e 3 gram oral packet TAKE 1 PACKET BY MOUTH EVERY 3 DAYS FOR 2 DOSES. FIRST DOSE WAS 04/27 IN THE ED. TAKE ANOTHER DOSE ON 04/30/20 AND FINAL 05/03/2004/24 completed Not Available Not Available Not Available pravastatin 40 mg tablet TAKE 1 TABLET BY MOUTH EVERY NIGHT AT BEDTIME active Not Available Not Available No t Available Lidocaine Viscous 2 % mucosal solution TAKE 15 ML EVERY 3 HOURS BY MOUTH NEEDED active Not Available Not Available No t Available tizanidine 4 mg tablet TAKE 1 TABLET BY MOUTH FOUR TIMES DAILY active Not Available Not Available No t Available fluconazole 150 mg tablet TAKE 1 TABLET BY MOUTH active Not Available Not Available No t Available ketotifen 0.025 % (0.035 %) eye drops active Not Available Not Available No t Available Nystop 100,000 unit/gram topical powder APPLY TOPICALLY TO THE AFFECTED AREA TWICE DAILY active Not Available Not Available No t Available phenazopyri dine 200 mg tablet active Not Available Not Available Not Available bupivacaine HCl 0.5 % (5 mg/mL) injection solution USE DIRECTED- 20ML TO BE INSTILLED INTRAVESI STANISLAV IN BLADDER COCKTAIL ORDERED IN PROVIDER OFFICE EVERY 2 WEEKS FOR 6 MONTHS active Not Available Not Available No t Available warfarin 2.5 mg tablet TAKE 1 TO 2 TABLETS BY MOUTH EVERY DAY active Not Available Not Available No t Available triamcinolo ne acetonide 0.5 % topical ointment APPLY THIN LAYER TOPICALLY TO THE AFFECTED AREA TWICE DAILY active Not Available Not Available No t Available ciprofloxac in 500 mg tablet TAKE 1 TABLET BY MOUTH TWICE DAILY 04/24 completed Not Available Not Available Not Available ondansetron 8 mg disintegrat ing tablet DISSOLVE 1 TABLET ON THE TONGUE EVERY 8 HOURS active Not Available Not Available No t Available orphenadrin e citrate 30 mg/mL injection solution ADMINISTE R 2 ML IN THE MUSCLE EVERY DAY NEEDED active Not Available Not Available No t Available sodium bicarbonate 1 mEq/mL (8.4 %) intravenous solution USE DIRECTED. MEDICATIO N TO BE INSTILLED INTRAVESI STANISLAV ORDERED IN PROVIDER OFFICE EVERY 2 WEEKS FOR 6 MONTHS active Not Available Not Available No t Available sodium chloride 0.9 % irrigation solution MIX 1,000ML WITH GENTAMICI N INSTRUCTE D AND INSTILL 30 ML TO BLADDER EVERY NIGHT active Not Available Not Available No t Available hydromorpho ne 2 mg tablet TAKE 1 TABLET BY MOUTH 2 TO 3 TIMES DAILY NEEDED FOR SEVERE PAIN active Not Available Not Available No t Available magnesium oxide 400 mg (241.3 mg magnesium) tablet TAKE 2 TABLET BY MOUTH EVERY MORNING THEN 1 TABLET BY MOUTH IN THE AFTERNOON AND 2 TABLET BY MOUTH EVERY EVENING active Not Available Not Available No t Available cyanocobala min (vit B-12) 500 mcg tablet TAKE 1 TABLET BY MOUTH EVERY DAY active Not Available Not Available No t Available oxycodone-a cetaminophe n 10 mg-325 mg tablet TAKE 1 TABLET BY MOUTH THREE TIMES DAILY active Not Available Not Available No t Available trazodone 100 mg tablet TAKE 1 TABLET BY MOUTH FOUR TIMES DAILY active Not Available Not Available No t Available baclofen 10 mg tablet TAKE 1 AND 1/2 TABLETS BY MOUTH THREE TIMES DAILY THEN TAKE 2 TABLETS BY MOUTH AT BEDTIME active Not Available Not Available No t Available doxycycline monohydrate 100 mg capsule TAKE 1 CAPSULE BY MOUTH TWICE DAILY FOR 7 DAYS 04/24 completed Not Available Not Available Not Available hyoscyamine 0.125 mg disintegrat ing tablet DISSOLVE 1 TABLET ON THE TONGUE FOUR TIMES DAILY active Not Available Not Available No t Available pantoprazol e 40 mg tablet,kathie yed release TAKE 1 TABLET BY MOUTH TWICE DAILY active Not Available Not Available No t Available buspirone 30 mg tablet TAKE 1 TABLET BY MOUTH QHS active Not Available Not Available No t Available promethazin e 25 mg tablet TAKE 1 TABLET BY MOUTH THREE TIMES DAILY NEEDED active Not Available Not Available No t Available warfarin 5 mg tablet TAKE 1 TO 2 TABLETS BY MOUTH DAILY DIRECTED active Not Available Not Available No t Available fluoxetine 10 mg capsule TAKE 1 CAPSULE BY MOUTH EVERY DAY active Not Available Not Available No t Available mupirocin 2 % topical ointment APPLY SMALL AMOUNT TOPICALLY TO THE AFFECTED AREA THREE TIMES DAILY FOR 7 TO 10 DAYS active Not Available Not Available No t Available lorazepam 1 mg tablet TAKE 1 TABLET BY MOUTH FOUR TIMES DAILY active Not Available Not Available No t Available cefuroxime axetil 500 mg tablet 04/24 completed Not Available Not Available Not Available gentamicin 40 mg/mL injection solution TO BE MIXED WITH 1,000ML OF NORMAL SALINE INSTRUCTE D. INSTILL 30 ML OF MIXED SOLUTION INTO BLADDER EVERY NIGHT BEFORE BED DIRECTED. active Not Available Not Available No t Available levofloxaci n 750 mg tablet TAKE 1 TABLET BY MOUTH EVERY 24 HOURS FOR 7 DAYS 04/24 completed Not Available Not Available Not Available zolpidem 10 mg tablet TAKE 1 TABLET BY MOUTH AT BEDTIME NEEDED active Not Available Not Available No t Available fluoxetine 20 mg capsule TAKE 1 CAPSULE BY MOUTH EVERY DAY active Not Available Not Available No t Available fluticasone propionate 50 mcg/actuati on nasal spray,suspe nsion SHAKE LIQUID AND USE 1 SPRAY IN EACH NOSTRIL EVERY DAY active Not Available Not Available No t Available BD Luer-Deandra Syringe 3 mL 22 x 1 1/2 USE DIRECTED TO DRAW GENTAMICI N AND MIX INTO NORMAL SALINE active Not Available Not Available No t Available amoxicillin 875 mg-potassiu m clavulanate 125 mg tablet TAKE 1 TABLET BY MOUTH EVERY 12 HOURS FOR 7 DAYS 04/24 completed Not Available Not Available Not Available amoxicillin 500 mg-potassiu m clavulanate 125 mg tablet TAKE 1 TABLET BY MOUTH EVERY 12 HOURS FOR 3 DAYS 04/24 completed Not Available Not Available Not Available buspirone 15 mg tablet TAKE 1 TABLET BY MOUTH qam active Not Available Not Available No t Available enoxaparin 80 mg/0.8 mL subcutaneou s syringe ADMINISTE R 0.8 ML UNDER THE SKIN TWICE DAILY active Not Available Not Available No t Available nitrofurant oin monohydrate /macrocryst als 100 mg capsule TAKE 1 CAPSULE BY MOUTH EVERY 12 HOURS FOR 2 DAYS 04/24 completed Not Available Not Available Not Available diclofenac 1 % topical gel APPLY 2 GRAMS TOPICALLY TO THE AFFECTED AREA FOUR TIMES DAILY. active Not Available Not Available No t Available cholecalcif francis (vitamin D3) 50 mcg (2,000 unit) capsule TAKE ONE CAPSULE BY MOUTH EVERY DAY active Not Available Not Available No t Available calcium 315 mg (as citrate)-vi tamin D3 6.25 mcg (250 unit) tablet TAKE 1 TABLET BY MOUTH TWICE DAILY active Not Available Not Available No t Available calcium 200 mg (as citrate)-vi tamin D3 6.25 mcg (250 unit) tablet TAKE 1 TABLET BY MOUTH TWICE DAILY active Not Available Not Available No t Available Antacid-Ant igas 200 mg-200 mg-20 mg/5 mL oral suspension SHAKE LIQUID AND TAKE 10 TO 20 ML BY MOUTH FOUR TIMES DAILY NEEDED active Not Available Not Available No t Available Stimulant Laxative Plus 8.6 mg-50 mg tablet TAKE 1 TABLET BY MOUTH TWICE DAILY active Not Available Not Available No t Available Narcan 4 mg/actuatio n nasal spray CALL 911. SPR CONTENTS OF ONE SPRAYER (0.1ML) INTO ONE NOSTRIL. REPEAT IN 2-3 MIN IF SYMPTOMS OF OPIOID EMERGENCY PERSIST, ALTERNATE NOSTRILS active Not Available Not Available No t Available Ubrelvy 100 mg tablet active Not Available Not Available No t Available Vitals Date Recorded Oxygen saturation Oxygen saturation in Arterial blood by Pulse oximetry Heart rate Body temperature Respiratory rate Systolic blood pressure Diastolic blood pressure Provider Name and Address Organization Details Last Updated DateTime 1 97 % 97 % 66 /min 97.4 [degF] 18 /min 122 mm[Hg] 84 mm[Hg] Not Available [facility] 1 21:00:50 Date Recorded Heart rate Respiratory rate Oxygen saturation Oxygen saturation in Arterial blood by Pulse oximetry Body temperature Systolic blood pressure Diastolic blood pressure Provider Name and Address Organization Details Last Updated DateTime 2 75 /min 18 /min 96 % 96 % 98 [degF] 128 mm[Hg] 76 mm[Hg] Not Available [facility] 10:[facility] Social History None recorded. Functional Status Question Answer Note LastModified by Organizat ion Details LastModified Time Do you use any illicit or recreational drugs? No Information not available 03/26/2021 Do you or have you ever used any other forms of tobacco or nicotine? No Information not available 03/26/2021 What is your level of alcohol consumption? None Information not available 03/26/2021 Mental Status None recorded. Family History Nothing Reported. Medical History Condition Response Diabetes N Coronary Artery Disease N CHF N Parkinson's Disease N Cancer N Stroke N Dementia N Asthma N Hypothyroidism N Depression N COPD N High Cholesterol N Rheumatoid Arthritis N Pulmonary Embolism N Hypertension N A-fib N Osteoporosis N Kidney Disease N Gynecological HistoryNo gynecological history recorded. Obstetrics History GPAL:G 0 P 0 0 0 0 Past Encounters Encounter ID Performer Location Encounter Start Date Encounter Closed Date Diagnosis/Indication Diagnosis SNOMED-CT Code Diagnosis ICD10 Code Diagnosis Note [id number] [facility] [address] [facility] [place] [place] [address] 03/26/2021 20:36:17 03/30/2021 21:35:20 Pain in throat 095671448 R07.0 Generalize d aches and pains 24911347 R52 Exposure t o SARS-CoV-2 456564475 Z20.822 Exposure t o communicable disease 497968554 Z20.822 [id number] [facility] [address] [facility] [place] [id number] 04/24/2021 10:13:20 04/26/2021 22:11:53 Viral syndrome 701889124 B34.9 Migraine 84489980 G43.90 9 Health Concerns Section Related Observation LastModified by Organization Detai ls LastModified Time None Recorded Concern Status LastModified by Organization Details LastModified Time None Recorded Advance Directives Directive None Recorded Payers Insurance Date Sequence Insurance Name Policy Number Policy Stacy Covered Member ID Stacy Member ID Guarantor Name 03/26/2021 1 *SELF PAY* [place] [id number] Coral [place] 04/24/2021 1 MEDICAID[place]: [facility] Coral Arenas [id number] Coral [place] Notes Date Note Type Note Provider Name and Address Organization Details Recorded Time 03/26/2021 text/html 55 y/o F with PM H of Mitochondrial Disease, POTS, Frequent Kidney Infections, new to and new to provider, is seeking further evaluation for a COVID-19 test due to having sore throat, body aches, and sinus congestion x 3 days. The patient states that this sometimes occurs with her Mitochondrial disease, but given that [place] is coming up she wants to be safe and not expose anyone. The patient has been using nasal spray for her symptoms. The patient last had known COVID-19 exposure on 03/08. The patient has already tested negative for COVID-19 since then. Patient is fully vaccinated for COVID-19 with booster. Patient denies any chest pain, shortness of breath, abdominal pain, nausea, vomiting, diarrhea, fevers, chills, weakness, fatigue, lethargy, or loss of smell/taste. KIRBY PETERS [address], [place], [address], [place] [facility] 03/26/2021 21:47:11 04/24/2021 text/html 55 YO F new to provider but known to Pt is c/o of sinus pressure and villeda/migraine todaySinus pressure has been ongoing for a couple of days , villeda has gotten somewhat worse last night but is tolerable. She does have hx of migraines that she takes botox and prn medicines for. Last doese of prn medicine this morning w/ limited relief per patient.She also has some stuffy, runny nose, post nasal drip, she also has some vomiting last episode of vomiting was this morning. She is feeling nauseous. N/V began last night. She does have zofran and she took a dose w/o much relief thus far. She was able to take some of her meds this morning. Despite this sx she is staying well hydrated as she has a port where she can give herself fluids. She has no other assoc sx's at this time and she denies change in vision, change in smell or taste, numbness/tingling, weakness, abd pain, dysuria, diarrhea or constipation, neck stiffness, neck pain, sore throat. She is requesting a covid test. She denies any knwon exposure but her child does have some cold sx's per her report. KIRBY Miles [address], [place], [address], [place] [facility] 04/24/2021 12:36:11 OBGyn Episode No OBEpisode recorded.
--- OUTSIDE RECORDS SUMMARY | 2024-08-23 08:40 | XMS_ITS | Clinical Summary ---
Author Organization [facility] Address [address] [place] [address] Care Team Providers Care Gold Layer Name Role Phone Gabbie Leblanc Primary Care Provider Unavailab le Allergies Active Allergy Reactions Severity Noted Date Comments Amitriptyline Hcl OTHER 09/13/2014 nightmares Gabapentin OTHER 09/13/2014 confusion Ketorolac Nausea and Vomiting Low 09/13/2014 Gastrointestinal problems, e.g., nausea, vomiting, diarrheaGI bleed (Nausea And Vomiting) Meperidine OTHER 09/13/2014 makes HUMPHREY worse Propranolol Hcl OTHER 09/13/2014 hypotension Topiramate OTHER 09/13/2014 confusion cat high doses Valproic Acid OTHER 09/13/2014 Venlafaxine Hcl OTHER 09/13/2014 Medications Medication Sig Dispensed Refills Start Date End Date Status ANTACID PLUS ANTI-GAS RELIEF 200-200-20 MG/5ML Suspension 0 01/26/2019 Active amoxicillin (AMOXIL) 500 MG capsule take 4 capsule by mouth 1 hour prior to appointment 0 01/13/2019 Active baclofen (LIORESAL) 10 MG tablet take 1 AND 1/2 tablet by mouth three times a day and then take 2 tablet by mouth at bedtime 0 01/28/2019 Active Calcium Citrate-Vitamin D 315-250 MG-UNIT Tab 1 Tab. 0 04/28/2012 Activ e cetirizine (ZYRTEC) 10 MG tablet Take 10 mg by mouth daily. 0 01/20/2019 Active SM VITAMIN D3 2000 units Cap 1 01/20/2019 Active Enoxaparin Sodium 80 MG/0.8ML Solution inject 0.8 milliliters subcutaneously twice a day 0 12/29/2018 Active HYDROmorphone (DILAUDID) 2 MG tablet take 1 tablet by mouth twice a day if needed 0 01/05/2019 Active Hyoscyamine Sulfate 0.125 MG TABLET DISPERSIBLE 0 12/13/2018 Active latanoprost (XALATAN) 0.005 % ophthalmic solution 0 01/12/2019 Activ e magnesium oxide (MAG-OX) 400 MG tablet daily. 0 09/03/2011 Active ondansetron (ZOFRAN) 4 MG/5ML solution 2 (two) times a day as needed. 0 02/09/2013 Active Ondansetron HCl 40 MG/20ML Solution 4 mg. 0 09/07/2012 Active orphenadrine (NORFLEX) 30 MG/ML injection 0 01/26/2019 Active oxycodone-acetamino phen (PERCOCET) 10-325 MG per tablet 1 Tab. 0 04/28/2012 Active pantoprazole (PROTONIX) 40 MG tablet 2 Tabs. 0 11/12/2011 Active pravastatin (PRAVACHOL) 40 MG tablet nightly. 0 03/14/2011 Active promethazine (PHENERGAN) 25 MG tablet 0 12/03/2018 Active GNP SENNA PLUS 8.6-50 MG per tablet 1 01/20/2019 Active SF 5000 PLUS 1.1 % Cream use as directed DO NOT RINSE 0 12/30/2018 Active tizanidine (ZANAFLEX) 4 MG tablet take 1 tablet by mouth four times a day 0 01/28/2019 Active trazodone (DESYREL) 100 MG tablet 0 01/28/2019 Active triamcinolone (KENALOG) 0.1 % cream apply to affected area twice a day topically 0 11/25/2018 Active trimethoprim (TRIMPEX) 100 MG tablet 1 01/05/2019 Active warfarin (COUMADIN) 1 MG tablet 0 12/03/2018 Active warfarin (COUMADIN) 2.5 MG tablet Take 2.5 mg by mouth daily. 0 11/18/2018 Active warfarin (COUMADIN) 5 MG tablet TAKE 1 TO 2 TABLETS BY MOUTH DAILY DIRECTED ON INR RESULT. 0 11/18/2018 Active Zolpidem Tartrate 10 MG Tab daily. 0 03/14/2011 Active Social History Tobacco Use Types Packs/Day Years Used Date Smoking Tobacco: Never Assessed Sex Assigned at Date Recorded Not on file Last Filed Vital Signs Vital Sign Reading Time Taken Comments Blood Pressure 88/48 02/03/2019 9:29 AM EDT Pulse 60 02/03/2019 9:29 AM EDT Temperature - - Respiratory Rate - - Oxygen Saturation - - Inhaled Oxygen Concentration - - Weight 69.9 kg (154 lb) 02/03/2019 9:29 AM EDT Height 164.5 cm (5' 4.75 ) 02/03/2019 9:29 AM ED T Body Mass Index 25.83 02/03/2019 9:29 AM EDT Plan of Treatment Health Maintenance Due Date Last Done Comments Covid-19 Vaccine (#1) 05/19/1964 HEPATITIS C SCREENING 11/16/1981 TOBACCO CHECK/ADVISE 11/16/1981 CHOLESTEROL SCREENING 1983 CERVICAL CANCER SCREENING 11/16/1984 BASELINE HEALTH EXAM 40-64 2003 MAMMOGRAM 2003 COLON CANCER SCREENING 11/16/2013 SHINGLES VACCINE (1 of 2) 11/16/2013 BMI CHECK/ADVISE 04/06/2024 02/03/2019 INFLUENZA (Season Ended) 2024 03/09/2014 DTAP/TDAP/TD (2 - Td or Tdap) 03/06/2026 03/06/2016 PNEUMOCOCCAL VACCINE FOR HIGH RISK PATIENTS (#1) 11/16 Care Teams Gold Layer Relationship Specialty Start Date End Date Gabbie Leblanc PCP - General 07/31/10
--- OUTSIDE RECORDS SUMMARY | 2024-08-23 08:40 | XMS_ITS | Encounter Summary ---
Author Organization [employer] Address [address] [facility] [address] [place] [address] Care Team Providers Care Director Teen Post Name Role Phone Unavailable Primary Care Provider Unavailabl e Reason for Visit * Reason Comments Med Refill Encounter Details Date Type Department Care Team (Late st Contact Info) Description 07/29/2023 Refill [facility] [address] [place] [address] Aneudy Jain DMD [address] [place] [address] Social History Tobacco Use Types Packs/Day Years [...]
--- OUTSIDE RECORDS SUMMARY | 2024-08-23 08:40 | XMS_ITS | Encounter Summary ---
Author Organization [employer] Address [address] [facility] [address] [place] [address] Care Team Providers Care Senior Engineering Technician Name Role Phone Unavailable Primary Care Provider Unavailabl e Reason for Visit * Reason Onset Date Comments Dr. Randhawa clarification on medicaction 025 Encounter Details Date Type Department Care Team ([facility] st Contact Info) Description 06/09/2024 Telephone [facility] [address] [place] [address] Eden Randhawa DDS [address] [place] [address] Dr. Randhawa clarification on medicaction Social History [...]
--- NOTE | 2024-08-31 12:40 | P.CONAN_ITS ---
Documented by User: Lisa Trimble NP 08/31/24 13:33 HPI - Anesthesia Eval Consult details Narrative: 58yo F for Upper Endoscopy and Colonoscopy Multiple med allergies Hx AVR mechanical 2010 d/t bicuspid AV with signif regurg/endocarditis - on coumadin (will bridge with lovenox). Follows [facility] - last eval 05/2024 pt reported palpitations, updated echo pending (scheduled for next week) Mitochondrial ataxia syndrome Follows [facility] for migraines/botox injections Chronic opioids PMFSH Active Problems Active Problems: All Active Problems Abnormal bowel habits (Acute) Ulnar neuropathy of left upper extremity (Acute) Left upper extremity numbness (Acute) Acid reflux (Acute) Mild acid reflux (Acute) Chronic migraine without aura (Acute) Migraine with aura, intractable, without status migrainosus (Acute) Diabetes (Acute) Hypersomnia (Acute) Snoring (Acute) Osteoporosis (Acute) Chronic migraine with aura (Acute) Mitochondrial ataxia syndrome (Acute) Anemia (Acute) Past Medical History Medical History Bicuspid aortic valve Left upper extremity numbness Hx of skin cancer, basal cell Chronic migraine without aura Diabetes Hypersomnia Snoring Osteoporosis Chronic migraine with aura Mitochondrial ataxia syndrome Anemia Family History Family History Father Parkinson disease Mother Tuberculosis Surgical History Surgical History H/O mechanical aortic valve replacement History of ankle surgery Hx of heart surgery Social History Social History Household Members Other:: son Are you a primary pediatric care coordinator to a significant other at home: No Do you presently have visiting nurse or other home services: No Alcohol intake: current Alcohol intake frequency: holidays/special occasions only Patient Tobacco Use Status: Never used Tobacco Substance Use Type: Marijuana Substance Use Frequency: Occasionally Have you been hit, kicked, punched, or otherwise hurt by someone within the past year? If so, by whom?: No Are you DNR?: No Advance Directives: No Advance Directives Information Provided: Yes Poor oral hygiene: Yes Meds Allergies Allergy/AdvReac Type Severity Reaction Status Date / Time acetaminophen [From MIDRIN] Allergy Unknown VOMITING Verified 09/01/24 11:22 amitriptyline [AMITRIPTYLINE] Allergy Unknown SEVERE Verified 09/01/24 11:22 HALLUCINATIONS aspirin [From Fiorinal] Allergy Unknown Unknown Verified 09/01/24 11:22 butalbital [From FIORICET] Allergy Unknown VOMITING Verified 09/01/24 11:22 caffeine [From FIORICET] Allergy Unknown VOMITING Verified 09/01/24 11:22 cefuroxime Allergy Unknown Vomiting Verified 09/01/24 11:22 dichloralphenazone Allergy Unknown VOMITING Verified 09/01/24 11:22 [From MIDRIN] ferumoxytol [From FERAHEME] Allergy Unknown GETS Verified 09/01/24 11:22 REALLY SICK fluoxetine Allergy Unknown Unknown Verified 09/01/24 11:22 gabapentin [From NEURONTIN] Allergy Unknown PSYCHOSIS Verified 09/01/24 11:22 ibandronate sodium Allergy Unknown Vomiting Verified 09/01/24 11:22 [From Boniva] ibuprofen Allergy Unknown Unknown Verified 09/01/24 11:22 isometheptene [From MIDRIN] Allergy Unknown VOMITING Verified 09/01/24 11:22 levetiracetam [From KEPPRA] Allergy Unknown HALLUCINATI Verified 09/01/24 11:22 ONS meperidine [From DEMEROL] Allergy Unknown HIVES Verified 09/01/24 11:22 methocarbamol [From ROBAXIN] Allergy Unknown DIARRHEA Verified 09/01/24 11:22 metoclopramide [From REGLAN] Allergy Unknown TWITCHING Verified 09/01/24 11:22 morphine [MORPHINE] Allergy Unknown VOMITING Verified 09/01/24 11:22 nortriptyline [NORTRIPTYLINE] Allergy Unknown PSYCHOSIS Verified 09/01/24 11:22 NSAIDS (Non-Steroidal Allergy Unknown GI BLEED Verified 09/01/24 11:22 Anti-Inflamma [NSAIDS (NON-STEROIDAL ANTI-INFLAMMA] pregabalin [From LYRICA] Allergy Unknown UNKNOWN Verified 09/01/24 11:22 sumatriptan [From IMITREX] Allergy Unknown IRREGULAR Verified 09/01/24 11:22 HEART RATE teriparatide [From Forteo] Allergy Unknown Unknown Verified 09/01/24 11:22 topiramate [From TOPAMAX] Allergy Unknown UNKNOWN Verified 09/01/24 11:22 valproic acid [VALPROIC ACID] Allergy Unknown PSYCHOSIS Verified 09/01/24 11:22 venlafaxine [VENLAFAXINE] Allergy Unknown DIARRHEA Verified 09/01/24 11:22 zolmitriptan [From ZOMIG] Allergy Unknown IRREGULAR Verified 09/01/24 11:22 HEART RATE valporic acid Allergy Severe Unknown Uncoded 09/01/24 11:22 Midrin Allergy Unknown Unknown Uncoded 09/01/24 11:22 Novocain Allergy Unknown Unknown Uncoded 09/01/24 11:22 Home Medications ?Medication ?Instructions ?Recorded ?Confirmed ?Last Taken ?Type baclofen 10 mg tablet 20 mg PO BEDTIME 07/31/21 09/01/24 Unknown History cetirizine 10 mg tablet 10 mg PO DAILY 07/31/21 09/01/24 Unknown History latanoprost 0.005 % eye drops 1 drp ophthalmic (eye) BEDTIME 07/31/21 09/01/24 Unknown History lorazepam 1 mg tablet 1 mg PO QID 07/31/21 09/01/24 Unknown History ondansetron 8 mg disintegrating 8 mg PO Q8H 07/31/21 09/01/24 Unknown History tablet orphenadrine citrate 30 mg/mL 60 mg IM DAILY PRN muscle spasms 07/31/21 09/01/24 Unknown History injection solution pravastatin 40 mg tablet 40 mg PO BEDTIME 07/31/21 09/01/24 Unknown History promethazine 25 mg tablet 25 mg PO TID PRN motion sickness 07/31/21 09/01/24 Unknown History warfarin 5 mg tablet 5 - 10 mg PO DAILY 07/31/21 09/01/24 Unknown History zolpidem 10 mg tablet 10 mg PO BEDTIME PRN Insomnia 07/31/21 09/01/24 Unknown History buspirone 30 mg tablet 30 mg PO BID 08/06/21 09/01/24 Unknown History calcium 200 mg (as 1 tab PO BID 02/18/22 09/01/24 Unknown History citrate)-vitamin D3 6.25 mcg (250 unit) tablet cholecalciferol (vitamin D3) 50 50 mcg PO DAILY 02/18/22 09/01/24 Unknown History mcg (2,000 unit) capsule cyanocobalamin (vitamin B-12) 500 500 mcg PO DAILY 02/18/22 09/01/24 Unknown History mcg tablet oxycodone-acetaminophen 10 mg-325 1 tab PO TID 02/18/22 09/01/24 Unknown History mg tablet sennosides 8.6 mg-docusate sodium 1 tab PO BID 02/18/22 09/01/24 Unknown History 50 mg tablet (Stimulant Laxative Plus) tizanidine 4 mg tablet 6 mg PO QID 02/18/22 09/01/24 Unknown History hyoscyamine sulfate 0.125 mg 0.125 mg PO QID 12/04/22 09/01/24 Unknown History disintegrating tablet morphine 15 mg tablet,extended 15 mg PO Q12H 12/04/22 09/01/24 Unknown History release venlafaxine 150 mg 150 mg PO DAILY 12/04/22 09/01/24 Unknown History capsule,extended release 24 hr enoxaparin 80 mg/0.8 mL mg subcut DIRECTED PRN coumadin 06/19/23 07/19/24 Unknown History subcutaneous syringe bridge fluticasone propionate 50 1 spray intranasal DAILY 06/19/23 09/01/24 Unknown History mcg/actuation nasal spray,suspension (Flonase Allergy Relief) magnesium oxide mg PO 06/19/23 07/19/24 Unknown History propranolol 20 mg tablet 20 mg PO ONCE 06/19/23 09/01/24 Unknown History propranolol 60 mg capsule,24 60 mg PO DAILY 06/19/23 09/01/24 Unknown History hr,extended release Exam Narrative Narrative: EKG 05/2024 SR with LBBB ECHO 2021 1. technically difficult study with suboptimal parasternal views. 2. SR 3. LV size is nml 4. Overal LV sys function is normal with an EF 55-60% 5. Grade 1 DD with an impaired relaxation filling pattern. LA pressure is elevated 6. Paradoxical septal motion c/w post op status 7. Sigmoid shaped septum with focal hypertrophy of basal septum. Remaining wall thickness is nml 8. Physiological regurg of mechanical prosthetic aortic valve 9. Maximum velocity across aortic valve is 2.52 m/sec 10. Mild MR 11. C/w findings on prior report of 2019, mild A! now present but whether physiologic AI from the valve isn';t clear on this study. No AI was noted on prior echo. Documented by User: Chucho Holder MD 09/01/24 12:40 PMFSH Past Medical History Medical History Bicuspid aortic valve Left upper extremity numbness Hx of skin cancer, basal cell Chronic migraine without aura Diabetes Hypersomnia Snoring Osteoporosis Chronic migraine with aura Mitochondrial ataxia syndrome Anemia Family History Family History Father Parkinson disease Mother Tuberculosis Family history of problems with anesthesia: No Surgical History Surgical History H/O mechanical aortic valve replacement History of ankle surgery Hx of heart surgery History of Problems with Anesthesia: No Social History Social History Household Members Other:: son Are you a primary pediatric care coordinator to a significant other at home: No Do you presently have visiting nurse or other home services: No Alcohol intake: current Alcohol intake frequency: holidays/special occasions only Patient Tobacco Use Status: Never used Tobacco Substance Use Type: Marijuana Substance Use Frequency: Occasionally Have you been hit, kicked, punched, or otherwise hurt by someone within the past year? If so, by whom?: No Are you DNR?: No Advance Directives: No Advance Directives Information Provided: Yes Poor oral hygiene: Yes Meds Allergies Allergy/AdvReac Type Severity Reaction Status Date / Time acetaminophen [From MIDRIN] Allergy Unknown VOMITING Verified 09/01/24 11:22 amitriptyline [AMITRIPTYLINE] Allergy Unknown SEVERE Verified 09/01/24 11:22 HALLUCINATIONS aspirin [From Fiorinal] Allergy Unknown Unknown Verified 09/01/24 11:22 butalbital [From FIORICET] Allergy Unknown VOMITING Verified 09/01/24 11:22 caffeine [From FIORICET] Allergy Unknown VOMITING Verified 09/01/24 11:22 cefuroxime Allergy Unknown Vomiting Verified 09/01/24 11:22 dichloralphenazone Allergy Unknown VOMITING Verified 09/01/24 11:22 [From MIDRIN] ferumoxytol [From FERAHEME] Allergy Unknown GETS Verified 09/01/24 11:22 REALLY SICK fluoxetine Allergy Unknown Unknown Verified 09/01/24 11:22 gabapentin [From NEURONTIN] Allergy Unknown PSYCHOSIS Verified 09/01/24 11:22 ibandronate sodium Allergy Unknown Vomiting Verified 09/01/24 11:22 [From Boniva] ibuprofen Allergy Unknown Unknown Verified 09/01/24 11:22 isometheptene [From MIDRIN] Allergy Unknown VOMITING Verified 09/01/24 11:22 levetiracetam [From KEPPRA] Allergy Unknown HALLUCINATI Verified 09/01/24 11:22 ONS meperidine [From DEMEROL] Allergy Unknown HIVES Verified 09/01/24 11:22 methocarbamol [From ROBAXIN] Allergy Unknown DIARRHEA Verified 09/01/24 11:22 metoclopramide [From REGLAN] Allergy Unknown TWITCHING Verified 09/01/24 11:22 morphine [MORPHINE] Allergy Unknown VOMITING Verified 09/01/24 11:22 nortriptyline [NORTRIPTYLINE] Allergy Unknown PSYCHOSIS Verified 09/01/24 11:22 NSAIDS (Non-Steroidal Allergy Unknown GI BLEED Verified 09/01/24 11:22 Anti-Inflamma [NSAIDS (NON-STEROIDAL ANTI-INFLAMMA] pregabalin [From LYRICA] Allergy Unknown UNKNOWN Verified 09/01/24 11:22 sumatriptan [From IMITREX] Allergy Unknown IRREGULAR Verified 09/01/24 11:22 HEART RATE teriparatide [From Forteo] Allergy Unknown Unknown Verified 09/01/24 11:22 topiramate [From TOPAMAX] Allergy Unknown UNKNOWN Verified 09/01/24 11:22 valproic acid [VALPROIC ACID] Allergy Unknown PSYCHOSIS Verified 09/01/24 11:22 venlafaxine [VENLAFAXINE] Allergy Unknown DIARRHEA Verified 09/01/24 11:22 zolmitriptan [From ZOMIG] Allergy Unknown IRREGULAR Verified 09/01/24 11:22 HEART RATE valporic acid Allergy Severe Unknown Uncoded 09/01/24 11:22 Midrin Allergy Unknown Unknown Uncoded 09/01/24 11:22 Novocain Allergy Unknown Unknown Uncoded 09/01/24 11:22 Home Medications ?Medication ?Instructions ?Recorded ?Confirmed ?Last Taken ?Type baclofen 10 mg tablet 20 mg PO BEDTIME 07/31/21 09/01/24 Unknown History cetirizine 10 mg tablet 10 mg PO DAILY 07/31/21 09/01/24 Unknown History latanoprost 0.005 % eye drops 1 drp ophthalmic (eye) BEDTIME 07/31/21 09/01/24 Unknown History lorazepam 1 mg tablet 1 mg PO QID 07/31/21 09/01/24 Unknown History ondansetron 8 mg disintegrating 8 mg PO Q8H 07/31/21 09/01/24 Unknown History tablet orphenadrine citrate 30 mg/mL 60 mg IM DAILY PRN muscle spasms 07/31/21 09/01/24 Unknown History injection solution pravastatin 40 mg tablet 40 mg PO BEDTIME 07/31/21 09/01/24 Unknown History promethazine 25 mg tablet 25 mg PO TID PRN motion sickness 07/31/21 09/01/24 Unknown History warfarin 5 mg tablet 5 - 10 mg PO DAILY 07/31/21 09/01/24 Unknown History zolpidem 10 mg tablet 10 mg PO BEDTIME PRN Insomnia 07/31/21 09/01/24 Unknown History buspirone 30 mg tablet 30 mg PO BID 08/06/21 09/01/24 Unknown History calcium 200 mg (as 1 tab PO BID 02/18/22 09/01/24 Unknown History citrate)-vitamin D3 6.25 mcg (250 unit) tablet cholecalciferol (vitamin D3) 50 50 mcg PO DAILY 02/18/22 09/01/24 Unknown History mcg (2,000 unit) capsule cyanocobalamin (vitamin B-12) 500 500 mcg PO DAILY 02/18/22 09/01/24 Unknown History mcg tablet oxycodone-acetaminophen 10 mg-325 1 tab PO TID 02/18/22 09/01/24 Unknown History mg tablet sennosides 8.6 mg-docusate sodium 1 tab PO BID 02/18/22 09/01/24 Unknown History 50 mg tablet (Stimulant Laxative Plus) tizanidine 4 mg tablet 6 mg PO QID 02/18/22 09/01/24 Unknown History hyoscyamine sulfate 0.125 mg 0.125 mg PO QID 12/04/22 09/01/24 Unknown History disintegrating tablet morphine 15 mg tablet,extended 15 mg PO Q12H 12/04/22 09/01/24 Unknown History release venlafaxine 150 mg 150 mg PO DAILY 12/04/22 09/01/24 Unknown History capsule,extended release 24 hr enoxaparin 80 mg/0.8 mL mg subcut DIRECTED PRN coumadin 06/19/23 07/19/24 Unknown History subcutaneous syringe bridge fluticasone propionate 50 1 spray intranasal DAILY 06/19/23 09/01/24 Unknown History mcg/actuation nasal spray,suspension (Flonase Allergy Relief) magnesium oxide mg PO 06/19/23 07/19/24 Unknown History propranolol 20 mg tablet 20 mg PO ONCE 06/19/23 09/01/24 Unknown History propranolol 60 mg capsule,24 60 mg PO DAILY 06/19/23 09/01/24 Unknown History hr,extended release Exam Airway Mallampati Class: II TM Dist: <=3cm Neck ROM: Full Denture: Upper and Lower Heart: ok. see above. Lungs: ok Assessment and Plan Assessment Anesthesia Assessment: Anesthesia Plan Discussed and Chart Reviewed Final Anesthetic Review Family History of Problems with Anesthesia: No History of Problems with Anesthesia: No NPO: Yes ASA Class: III Final Preanesthetic Review: No Changes in Pt Med Stat, Meds/Allgs Chart Reviewe d, Consent Obtained/Reviewed and Anes Risks/Benef Reviewed Patient Risk: High Procedure Risk: Intermediate Anesthetic Plan Anesthetic Plan: Agree w/ Assess. and Plan and TIVA Disposition: Standard PACU
[2024-09-01] MEDS: 0.9 % Sodium Chloride 1,000 ML 100 ML IVCONT (10:49)
[2024-09-01 10:55] VITALS: BMI 26.0
[2024-09-01 11:14] LABS: INTERNATIONAL NORM RATIO 1.2 (0.9-1.1); Prothrombin Time 13.3 SEC (10.9-12.4)
--- NOTE | 2024-09-01 11:52 | MHC.SHP ---
Pre-Procedural Eval Section A - 24 Hr Update-Section A only Date of Service: 09/01/24 Section B - Complete if H&P > 30 days Chief Complaint: Other specified symptoms and signs involving Relevant Family History (Specify if Yes): No Relevant Social History: None Present Medications: see Short Stay Collaborative assessment Medical History: Significant History (Left upper extremity numbness Hx of skin cancer, basal cell Chronic migraine without aura Diabetes Hypersomnia Snoring Osteoporosis Chronic migraine with aura Mitochondrial ataxia syndrome Anemia) History of Previous Operations: Relevant previous surgery/procedure and date(s) (History of ankle surgery Hx of heart surgery) Allergies: Allergies Allergy/AdvReac Type Severity Reaction Status Date / Time acetaminophen [From MIDRIN] Allergy Unknown VOMITING Verified 09/01/24 11:22 amitriptyline [AMITRIPTYLINE] Allergy Unknown SEVERE Verified 09/01/24 11:22 HALLUCINATIONS aspirin [From Fiorinal] Allergy Unknown Unknown Verified 09/01/24 11:22 butalbital [From FIORICET] Allergy Unknown VOMITING Verified 09/01/24 11:22 caffeine [From FIORICET] Allergy Unknown VOMITING Verified 09/01/24 11:22 cefuroxime Allergy Unknown Vomiting Verified 09/01/24 11:22 dichloralphenazone Allergy Unknown VOMITING Verified 09/01/24 11:22 [From MIDRIN] ferumoxytol [From FERAHEME] Allergy Unknown GETS Verified 09/01/24 11:22 REALLY SICK fluoxetine Allergy Unknown Unknown Verified 09/01/24 11:22 gabapentin [From NEURONTIN] Allergy Unknown PSYCHOSIS Verified 09/01/24 11:22 ibandronate sodium Allergy Unknown Vomiting Verified 09/01/24 11:22 [From Boniva] ibuprofen Allergy Unknown Unknown Verified 09/01/24 11:22 isometheptene [From MIDRIN] Allergy Unknown VOMITING Verified 09/01/24 11:22 levetiracetam [From KEPPRA] Allergy Unknown HALLUCINATI Verified 09/01/24 11:22 ONS meperidine [From DEMEROL] Allergy Unknown HIVES Verified 09/01/24 11:22 methocarbamol [From ROBAXIN] Allergy Unknown DIARRHEA Verified 09/01/24 11:22 metoclopramide [From REGLAN] Allergy Unknown TWITCHING Verified 09/01/24 11:22 morphine [MORPHINE] Allergy Unknown VOMITING Verified 09/01/24 11:22 nortriptyline [NORTRIPTYLINE] Allergy Unknown PSYCHOSIS Verified 09/01/24 11:22 NSAIDS (Non-Steroidal Allergy Unknown GI BLEED Verified 09/01/24 11:22 Anti-Inflamma [NSAIDS (NON-STEROIDAL ANTI-INFLAMMA] pregabalin [From LYRICA] Allergy Unknown UNKNOWN Verified 09/01/24 11:22 propranolol [PROPRANOLOL] Allergy Unknown TACHYCARDIA Verified 09/01/24 11:22 sumatriptan [From IMITREX] Allergy Unknown IRREGULAR Verified 09/01/24 11:22 HEART RATE teriparatide [From Forteo] Allergy Unknown Unknown Verified 09/01/24 11:22 topiramate [From TOPAMAX] Allergy Unknown UNKNOWN Verified 09/01/24 11:22 valproic acid [VALPROIC ACID] Allergy Unknown PSYCHOSIS Verified 09/01/24 11:22 venlafaxine [VENLAFAXINE] Allergy Unknown DIARRHEA Verified 09/01/24 11:22 zolmitriptan [From ZOMIG] Allergy Unknown IRREGULAR Verified 09/01/24 11:22 HEART RATE valporic acid Allergy Severe Unknown Uncoded 09/01/24 11:22 Midrin Allergy Unknown Unknown Uncoded 09/01/24 11:22 Novocain Allergy Unknown Unknown Uncoded 09/01/24 11:22 Review of Systems Sugical H&P ROS: Negative: Constitution, Cardiovascular, Respiratory, Psychiatric, Hem-Onc, Allergic/Immunologic, Gastrointestinal, Genitourinary, Musculoskeletal, Integumentary, Endocrine and Eyes/Ears/Nose/Throat and Yes, Specify: Neurological Exam Surgical H&P Exam: Normal: HEENT, Normal: Heart, Normal: Lungs, Normal: Extremities, Normal: Abdomen and Normal: Skin and Significant Findings: Neurological Plan Diagnosis/Plan: Unchanged I have reviewed the history and physical and performed a pertinent physical examination on my patient. No changes have occurred unless specified. EGD with dilation due to dysphagia and colo for abn bowel habits Time Spent With Patient Time: Total time managing care of this patient today ____ minutes.
--- NOTE | 2024-09-01 12:25 | P.OP_ITS ---
Operative Note Operative Note Date of Service: 09/01/24 Narrative: Operative Information Procedure Description: EGD, Colonoscopy Indication: dysphagia, abn bowel habits Anesthesia: MAC FLEXIBLE TRANSORAL UPPER GASTROINTESTINAL ENDOSCOPY AND COLONOSCOPY PROCEDURE NOTE UPPER ENDOSCOPY Consent: Indications for the procedure and potential complications of bleeding, perforation, reaction to medications and missed diagnosis were discussed with the patient and informed consent was obtained. Instrument: Olympus GIF H 190 J mid size upper endoscope Monitoring: Vital signs and clinical assessment, continuous EKG monitoring, Pulse oximetry, Carbon Dioxide monitoring and blood pressure monitoring were done throughout the procedure. Procedure: The patient was placed in the left lateral decubitis position and pre-procedure medications were administered and a bite block was placed. The endoscope was inserted into the mouth and advanced under direct vision to the third part of duodenum. A careful inspection was made as the upper endoscope was withdrawn including a retroflexed examination of the proximal stomach; Findings and interventions are described below. Findings: Larynx:normal Esophagus: GE junction at 35 cm, diaphragm hiatus at 37 cm, consistent with 2 cm fixed hiatal hernia, schatzki ring noted with surrounding erythema and esophagitis, balloon dilation done at LES and UES to 20 mm with slight tear seen in UES. bx taken from GEj, distal and proximal esophagus Stomach: erythema and scarring with partial gastrectomy noted with reduced movement of stomach. Biopsies were obtained. Grade 2 flap valve on retroflexed examination of the cardia. Duodenum: Normal bulb and descending duodenum, Intervention: Biopsies as noted above, balloon dilation COLONOSCOPY Instrument: Olympus variable stiffness pediatric scope 190L Colonoscopy Monitoring: Vital signs and clinical assessment, continuous EKG monitoring, Pulse oximetry, Carbon Dioxide monitoring and blood pressure monitoring were done throughout the procedure. Procedure: The patient was placed in the left lateral decubitis position and pre-procedure medications were administered. After a digital rectal examination of the ano-rectum, the video colonoscope was inserted into the rectum and advanced through the colon to the distal ascending colon The colonoscope was slowly withdrawn in a retrograde panoramic fashion and the colon mucosa was carefully examined including a retroflexed view of the rectum. Findings and interventions are described below. Procedure Difficulty:moderate Findings: Terminal Ileum-not reached Cecum:not reached Ascending Colon: normal Transverse Colon -normal Descending Colon:normal Sigmoid Colon: normal Rectum: Retroflexion with small internal hemorrhoids, grade 1 Anorectum - normal Colon preparation: [place] Bowel Preparation Scale Right colon; 0 Transverse colon: 1 Left colon; 1 (0 = Unprepared colon segment with mucosa not seen due to solid stool that cannot be cleared. 1 = Portion of mucosa of the colon segment seen, but other areas of the colon segment not well seen due to staining, residual stool and/or opaque liquid. 2 = Minor amount of residual staining, small fragments of stool and/or opaque liquid, but mucosa of colon segment seen well. 3 = Entire mucosa of colon segment seen well with no residual staining, small fragments of stool or opaque liquid) Impression and Post Procedure Diagnosis: Endoscopy Findings: possible gastroparesis hiatal hernia schatzki ring esophageal stricture esophagitis Colonoscopy Findings: poor prep internal hemorrhoids Plan: Await Pathology results Repeat Colonoscopy in 3-6 months with alternative prep or earlier if clinically indicated High fiber diet leaflet avoid straining at stool, epsom salts and sitz bath, anusol supps or cream refer to PT for pelvic floor weakness and dyssnergy Above findings were reviewed with the patient and relevant handouts were provided if indicated.
[2024-09-01 12:51] VITALS: BP 137/71; PULSE 60; RESP 17; TEMP 36.2; O2SAT 98
[2024-09-01 13:00] VITALS: BP 127/99; PULSE 62; RESP 17; O2SAT 98
[2024-09-01 13:11] VITALS: BP 151/77; PULSE 62; RESP 17; TEMP 36.2; O2SAT 98
== END 2024-09-01 13:57 | disposition home or self-care (01) ==
PROVIDERS: Nurse Practitioner; PCP Family Medicine; Visit Provider Internal Medicine Gastroenterology
PROC: (CPT 45378; principal; 2024-09-01 12:10)
DX: R19.4 Change in bowel habit (principal); K64.0 First degree hemorrhoids; K31.84 Gastroparesis; K22.2 Esophageal obstruction; K20.80 Other esophagitis without bleeding; K29.60 Other gastritis without bleeding; K44.9 Diaphragmatic hernia without obstruction or gangrene; Z90.3 Acquired absence of stomach [part of]; K21.9 Gastro-esophageal reflux disease without esophagitis; E11.9 Type 2 diabetes mellitus without complications; D64.9 Anemia, unspecified
CPT/HCPCS: 45378; 43249; 43239; 36415; 85610; 88305; 88313; 88342; C1726; J2003; J2405; J2704

== ENCOUNTER → 2024-09-01 09:40 | Outpatient (BNV) | payer MEDICAID, SELFPAY | PROVIDERS: PCP Family Medicine; Visit Provider Internal Medicine Gastroenterology | DX: R13.10 Dysphagia, unspecified (principal); K44.0 Diaphragmatic hernia with obstruction, without gangrene; R19.4 Change in bowel habit; K64.0 First degree hemorrhoids; Z91.199 Patient's noncompliance with other medical treatment and regimen due to unspecified reason | CPT/HCPCS: 43239; 43249; 45378 ==

== ENCOUNTER 2024-10-18 10:06 | Outpatient (AMB) | payer MEDICAID, SELFPAY ==
--- NOTE | 2024-10-18 10:08 | MHC.OFFVIS ---
Vital Signs 10/18/24 10:12 BP 100/64 Blood Pressure Location Lt brachial Pulse 61 Pulse Source Pulse Oximeter Pulse Oximetry (%) 98 Oxygen Delivery Method Room Air Intake Visit Reasons: Botox Intake Note: Patient presents for botox injection. 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 Required: No Accompanied by: Self / Same As Patient Allergies acetaminophen (From MIDRIN) Allergy (Unknown, Verified 10/18/24 10:09) VOMITING amitriptyline (AMITRIPTYLINE) Allergy (Unknown, Verified 10/18/24 10:09) SEVERE HALLUCINATIONS aspirin (From Fiorinal) Allergy (Unknown, Verified 10/18/24 10:09) Unknown butalbital (From FIORICET) Allergy (Unknown, Verified 10/18/24 10:09) VOMITING caffeine (From FIORICET) Allergy (Unknown, Verified 10/18/24 10:09) VOMITING cefuroxime Allergy (Unknown, Verified 10/18/24 10:09) Vomiting dichloralphenazone (From MIDRIN) Allergy (Unknown, Verified 10/18/24 10:09) VOMITING ferumoxytol (From FERAHEME) Allergy (Unknown, Verified 10/18/24 10:09) GETS REALLY SICK fluoxetine Allergy (Unknown, Verified 10/18/24 10:09) Unknown gabapentin (From NEURONTIN) Allergy (Unknown, Verified 10/18/24 10:09) PSYCHOSIS ibandronate sodium (From Boniva) Allergy (Unknown, Verified 10/18/24 10:09) Vomiting ibuprofen Allergy (Unknown, Verified 10/18/24 10:09) Unknown isometheptene (From MIDRIN) Allergy (Unknown, Verified 10/18/24 10:09) VOMITING levetiracetam (From KEPPRA) Allergy (Unknown, Verified 10/18/24 10:09) HALLUCINATIONS meperidine (From DEMEROL) Allergy (Unknown, Verified 10/18/24 10:09) HIVES methocarbamol (From ROBAXIN) Allergy (Unknown, Verified 10/18/24 10:09) DIARRHEA metoclopramide (From REGLAN) Allergy (Unknown, Verified 10/18/24 10:09) TWITCHING morphine (MORPHINE) Allergy (Unknown, Verified 10/18/24 10:09) VOMITING nortriptyline (NORTRIPTYLINE) Allergy (Unknown, Verified 10/18/24 10:09) PSYCHOSIS NSAIDS (Non-Steroidal Anti-Inflamma (NSAIDS (NON-STEROIDAL ANTI-INFLAMMA) Allergy (Unknown, Verified 10/18/24 10:09) GI BLEED pregabalin (From LYRICA) Allergy (Unknown, Verified 10/18/24 10:09) UNKNOWN sumatriptan (From IMITREX) Allergy (Unknown, Verified 10/18/24 10:09) IRREGULAR HEART RATE teriparatide (From Forteo) Allergy (Unknown, Verified 10/18/24 10:09) Unknown topiramate (From TOPAMAX) Allergy (Unknown, Verified 10/18/24 10:09) UNKNOWN valproic acid (VALPROIC ACID) Allergy (Unknown, Verified 10/18/24 10:09) PSYCHOSIS venlafaxine (VENLAFAXINE) Allergy (Unknown, Verified 10/18/24 10:09) DIARRHEA zolmitriptan (From ZOMIG) Allergy (Unknown, Verified 10/18/24 10:09) IRREGULAR HEART RATE valporic acid Allergy (Severe, Uncoded 09/01/24 11:22) Unknown Midrin Allergy (Unknown, Uncoded 09/01/24 11:22) Unknown Novocain Allergy (Unknown, Uncoded 09/01/24 11:22) Unknown Medication List - Last Reconciled 10/18/24 by Ying Espinal MD baclofen 20 mg PO BEDTIME buspirone 30 mg PO BID calcium citrate-vitamin D3 200 mg-6.25 mcg (250 unit) 1 tab PO BID cetirizine 10 mg PO DAILY cholecalciferol (vitamin D3) 50 mcg PO DAILY cyanocobalamin (vitamin B-12) 500 mcg PO DAILY enoxaparin mg subcut DIRECTED PRN fluticasone propionate 50 mcg/actuation (Flonase Allergy Relief) 1 spray intranasal DAILY hyoscyamine sulfate 0.125 mg PO QID latanoprost 0.005% 1 drp ophthalmic (eye) BEDTIME lorazepam 1 mg PO QID magnesium oxide mg PO morphine ER 15 mg PO Q12H onabotulinumtoxinA (Botox) to be injected to face and neck muscles subcutaneously once; 90 days ondansetron 8 mg PO Q8H ondansetron 4 mg PO Q8H PRN orphenadrine citrate 60 mg IM DAILY PRN oxycodone-acetaminophen 10-325 mg 1 tab PO TID pantoprazole 40 mg PO BID pravastatin 40 mg PO BEDTIME promethazine 25 mg PO TID PRN propranolol 20 mg PO ONCE propranolol ER 60 mg PO DAILY sennosides-docusate sodium 8.6-50 mg (Stimulant Laxative Plus) 1 tab PO BID tizanidine 6 mg PO QID ubrogepant (Ubrelvy) 100 mg PO BID PRN 30 days venlafaxine ER 150 mg PO DAILY warfarin 5 - 10 mg PO DAILY zolpidem 10 mg PO BEDTIME PRN HPI Comments Details: ? 58y/o female comes for treatment of migraines with botox How many migraine days prior to botox-20 How long do the migraines last=2-3 Intensity of migraine-10 ER visits related to [id number] Effectiveness of botox from last treatment(s) How many migraine days since receiving treatment:10 Change? in intensity of migraine?decreased Change in frequency of migraine?decreased Change in use of acute medication for migraine?decreased Change in quality of life?improved ER visits related to migraine?none Explanation for any gaps in treatment Have at least three months elapsed since last treatment (Last botox date - frequency of injections)3 months ??? Most frequent reported adverse reactions following injection of botox for chronic migraine include neck pain (9%), headache(5%), eyelid ptosis(4%), migraine(4%), muscular weakness(4%), musculuskeletal stiffness(4%), bronchitis(3%), injection site pain (3%), musculoskeletal pain(3%), myalgia(3%), facial paresis(2%), HTN(2%) and muscle spasms(2%) were discussed in detail. hg ??? Botulinum toxin typeA 200units Lot no [id number] expiration January 2027was diluted with 4 cc of normal saline . ??? Muscles injected- ??? Frontalis 4 sites ??? Procerus 1 site ??? Herbarium Worker- 2 sites ??? Temporalis- 8 sites ??? Occipitalis- 6 sites ??? Cervical paraspinals- 4 sites ??? Trapezius- 6 sites- 15units each ??? 5 units each in 31 site ??? Total use- 200units ??? [facility] Medical History (Updated 09/01/24 @ 12:48 by Kiana Stoll MD) Bicuspid aortic valve Left upper extremity numbness Hx of skin cancer, basal cell Chronic migraine without aura Diabetes Hypersomnia Snoring Osteoporosis Chronic migraine with aura Mitochondrial ataxia syndrome Anemia Surgical History H/O mechanical aortic valve replacement History of ankle surgery Hx of heart surgery Family History Father Parkinson disease Mother Tuberculosis Social History Household Members Other:: son Are you a primary health care analyst to a significant other at home: No Do you presently have visiting nurse or other home services: No Alcohol intake: current Alcohol intake frequency: holidays/special occasions only Patient Tobacco Use Status: Never used Tobacco Substance Use Type: Marijuana Physical Exam Vital Signs: Last Vital Signs Pulse 61 10/18/24 10:12 BP 100/64 10/18/24 10:12 Pulse Ox 98 10/18/24 10:12 Oxygen Delivery Method Room Air 10/18/24 10:12 Const General: comfortable and no acute distress Orientation/consciousness: patient oriented x3 Neuro General: patient oriented x3 Psych Speech and movement: Clear speech present Affect: normal affect Attitude: cooperative Thought process: Normal thought process present Thought content: Normal thought content present Office Procedures Botulinum toxin Injection 45459 - Migraine Procedure code (CPT) selection complete Office Meds onabotulinumtoxinA 200 unit solution for injection Performing Provider: Ying Espinal MD Performing Location: [facility] Administered by: Ying Espinal MD on 10/18/24 10:33 Dose Route Admin Location Dispensed Lot Number Expiration Date [facility] [place] 200 unit subcut 200 units [id number] ALLERGAN/BOTOX Total Dispensed Waste 200 units 0 % Comments: see hpi Assessment & Plan Assessment & Plan (1) Chronic migraine without aura: Code(s): G43.709 - Chronic migraine without aura, not intractable, without status migrainosus Category: Medical Qualifiers: Status migrainosus presence: without status migrainosus Intractability: intractable Qualified Code(s): G43.719 - Chronic migraine without aura, intractable, without status migrainosus Plan She is doing well on ubrelvy 100mg and botox - reports some breakthrough episodes 2 week towards the end . will consider Botox every 10 weeks - her insurance did not approve She tolerated the procedure well she will call with any side effects Orders: Orders AMB Botulinum toxin Injection Today G43.719 - Chronic migraine without aura, intractable, without status migrainosus Coding Level of Care Code Est Pt Level 1 (39265) Diagnoses Intractable chronic migraine without aura and without status migrainosus G43.719 Status migrainosus presence: without status migrainosus Intractability: intractable CPT Codes Botox Injection - Botox 3: 30641 - Migraine ([id number])
[2024-10-18 10:12] VITALS: BP 100/64; PULSE 61; O2SAT 98
--- OUTSIDE RECORDS SUMMARY | 2024-10-18 11:06 | XMS_ITS | Data Portability ---
Author Organization [place] [facility] Address [address] [place] [id number] Care Team Providers Care Grinder Setup Operator Name Role Phone ATA LINO Primary Care Provider Assessment Encounter Date Assessment Date Assessment LastModified [...] with her Mitochondrial disease, but given that [place] is coming up she wants to be [...] PCR test ordered, obtained and sent to [facility]. Plan/Discussion: Advised patient that rapid COVID-19 [...] after care of [facility]. Not available 03/26/2021 21:36:47 [...] evidence of trauma Neuro: No focal deficits, CN s II-XII grossly normal, alert and orineted [...] Go To The Location Of Their Choice, [address] 10:33:43 rapid SARS CoV 2 Ag, QL IA, respiratory specimen 2021 022 [facility], [address] [place] [address], [phone], 12:21:02 rapid SARS CoV 2 Ag, QL IA, respiratory specimen 2020 021 [facility] [place], [address] [place] [address], [phone], 21:37:22 unlisted lab - covid-19 (novel coronavirus ) PCR 2020 021 [facility] (Centralized Electronic Ordering - All Locations), Patient Can Go To The Location Of Their Choice, [address] 20:37:09 Referral None recorded. Procedures None recorded. Surgeries None recorded. Imaging None recorded. Medication Orders None recorded. Patient TargetsNo targets recorded. Patient InstructionsNo instructions recorded. Reason for Referral None Reported. Results Created Date Observation Date Name Description Value Unit Range Abnormal Flag Note LastModifiedBy Organization Detail LastModifiedTime 03/26/2003/27/2021 COVID -19 (NOVE L CORON AVIRU S) PCR covid-19 PCR specimen source NASAL Not Available [facility] (Centralized Electronic Ordering - All Locations) Patient Can Go To The Location Of Their Choice, [id number] 03/28/2021 20:37:09 03/26/20 21 03/28/2021 COVID -19 (NOVE L CORON AVIRU S) PCR covid-19 PCR result (neg) normal NEGAT STEFANI 2019- novel Coron aviru s (2018 -nCoV ) not detec slim by real- time RT-PC R. Note: If clini eve suspi cion for COVID -19 is high, nina nue to maint ain preca ution s and consi leatha repea t testi ng. Resul t repor slim to the [facility]. To preve nt error s in diagn [...] perfo rmed by real time PCR [facility]ili [facility] DELMIS [place] SARS- CoV-2 test. Not Available [facility] (Centralized Electronic Ordering - All Locations) Patient Can Go To The Location Of Their Choice, [id number] 03/28/2021 20:37:09 03/26/20 21 03/26/2021 rapid SARS CoV 2 Ag, QL IA, respi rator y speci men Covid-19 (ref: neg) negati ve Not Available [facility] [address] [place], [address], 03/26/2021 21:36:53 03/26/20 21 03/26/2021 rapid SARS CoV 2 Ag, QL IA, respi rator y speci men Control Visual ized/V alid Not Available [facility] [address] [place], [address], 03/26/2021 21:36:53 03/26/20 21 03/26/2021 rapid SARS CoV 2 Ag, QL IA, respi rator y speci men Location [facility], [address] [place] [address], [id number] Not Available [facility] [address], [place], [address], 03/26/2021 21:36:53 04/24/19 22 04/26/20212018 NOVEL CORON [...] ng requi remen ts for trave ling may jett e with time. The patie nt [...] /Ques tLDT/ fact- sheet .html https ://betzaida w.que stdia gnost ics.c om/ho me/Co vid-1 9/Pat ients /Ques tLDT/ fact- sheet .html = Due to the curre nt publi c healt h emerg ency, [employer] ostic s is accep ting sampl es [...] by FDA for COVID -19 testi ng daniella d be cauti ously evalu ated and take extra preca ution s such as addit ional clini eve monit oring , inclu ding colle ction of an addit ional speci men. = Addit ional infor matjose a n about COVID -19 can be found at the [employer] ostic s websi te: www.Science uestD [place].iogno Admeld .[employer]/ Covid 19. Test Perfo rmed by: [employer], [address], [place]. [address] . Labor atory Direc tor: Alon ruiz MD. Not Available [facility] (Centralized Electronic Ordering - All Locations) Patient Can Go To The Location Of Their Choice, [address] 04/26/2021 23:05:47 04/24/19 22 04/24/2021 rapid SARS CoV 2 Ag, QL IA, respi rator y speci men Covid-19 (ref: neg) negati ve Not Available [facility] [address], [place], [address], 04/24/2021 12:16:45 04/24/19 22 04/24/2021 rapid SARS CoV 2 Ag, QL IA, respi rator y speci men Control Visual ized/V alid Not Available [facility] [address], [place], [address], 04/24/2021 12:16:45 04/24/19 22 04/24/2021 rapid SARS CoV 2 Ag, QL IA, respi rator y speci men Location [facility], [facility], [address] [facility], [place] [address], [id number] Not Available [facility] [address] [facility], [place], [address], 04/24/2021 12:16:45 Result Notes None recorded. Procedures Surgical History Date Name Laterality Status Provider Name and Address Organization Details Recorded Time mechanical heart valve replacement completed KIRBY PETERS [address] [place], [address], [place] [facility] 03/26/2021 20:40:09 insertion of implantable venous access port completed KIRBY PETERS [address] [facility], [place], [address], [place] [facility] 03/26/2021 20:40:20 Imaging Results [...] Available No t Available Vitals Date Recorded Heart rate Respiratory rate Oxygen saturation Oxygen saturation in Arterial blood by Pulse oximetry Body temperature Systolic And Diastolic Provider Name and Address Organization Details Last Updated DateTime 2 75 /min 18 /min 96 % 96 % 98 [degF] 128/76 mm[Hg] Not Available [facility] 2 10:20:00 Date Recorded Oxygen saturation Oxygen saturation in Arterial blood by Pulse oximetry Heart rate Body temperature Respiratory rate Systolic And Diastolic Provider Name and Address Organization Details Last Updated DateTime 1 97 % 97 % 66 /min 97.4 [degF] 18 /min 122/84 mm[Hg] Not Available [facility] 1 21:00:50 Social History None recorded. Functional Status Question [...] CHF N Parkinson's Disease N Cancer N Dementia N Stroke N Depression N Asthma N COPD N Hypothyroidism N High Cholesterol N Rheumatoid Arthritis N Pulmonary Embolism N Hypertension N A-fib N Osteoporosis N Kidney Disease N Gynecological HistoryNo gynecological history recorded. Obstetrics History GPAL:G 0 P 0 0 0 0 Past Encounters Encounter ID Performer Location Encounter Start Date Encounter Closed Date Diagnosis/Indication Diagnosis SNOMED-CT Code Diagnosis ICD10 Code Diagnosis Note [id number] KIRBY PETERS [facility] [address] [facility] [place] [address] 03/26/2021 20:36:17 03/30/2021 21:35:20 Pain in throat 469118019 R07.0 Generalize d aches and pains 34878117 R52 Exposure t o SARS-CoV-2 685544423 Z20.822 Exposure t o communicable disease 923331302 Z20.822 [id number] KIRBY Bearden [facility] [address] [facility] [place] [address] 04/24/2021 10:13:20 04/26/2021 22:11:53 Viral syndrome 488878284 B34.9 Migraine 40556755 G43.90 9 Health Concerns Section Related Observation LastModified by Organization Detai ls LastModified Time None Recorded Concern Status LastModified by Organization Details LastModified Time None Recorded Advance Directives Directive None Recorded Payers Insurance Date Sequence Insurance Name Policy Number Policy Stacy Covered Member ID Stacy Member ID Guarantor Name 03/26/2021 1 *SELF PAY* Coral Arenas [id number] Coral Arenas 04/24/2021 1 [place]: [facility] Coral Arenas [id number] Coral Arenas Notes Date Note Type Note [...] with her Mitochondrial disease, but given that [place] is coming up she wants to be [...] or loss of smell/taste. KIRBY PETERS [address] [facility] [place], [address], [place] [facility] 03/26/2021 21:47:11 04/24/2021 text/html [...] her report. KIRBY Miles [address], [place], [address], [place] [facility] 04/24/2021 12:36:11 OBGyn Episode No OBEpisode recorded.
--- OUTSIDE RECORDS SUMMARY | 2024-10-18 11:06 | XMS_ITS | Clinical Summary ---
Author Organization [employer] Address [address] [place] [address] [address] [place] [address] Care Team Providers Care Solids Control Technician Name Role Phone Unavailable Primary Care [...] 04/22/2024 History of heart valve replacement with trailer mechanic al valve 04/22/2024 Hyperlipidemia 04/22/2024 Hyponatremia [...] Type Department Care Team Description 07/29/2024 Telephone [facility] [address] [place] [address] Eden Randhawa DDS 07/27/2024 Telephone [facility] [address] [place] [address] Eden Randhawa DDS from Last 3 Months Social History [...] Vaccine ( season) 2023 03/18/2021, 09/05/2020, 08/06/2020 Influenza Vaccine (#1) 2024 , 12/30/2022, 01/01/2022, Additional history exists Tobacco Screening 06/08/2025 06/08/2024 DTaP/Tdap/Td Vaccines (2 - Td or Tdap) 03/06/2026 03/06/2016, 01/20/2011 HIB Vaccines Aged Out No longer eligi [...] Procedure Name Priority Date/Time Associated Diagnosis Comments COMPREHENSIVE ORAL EVALUATION - NEW OR ESTABLISHED PATIENT Routine 03/24/2013 12:00 AM EST INTRAORAL - COMPLETE SERIES OF RADIOGRAPHIC IMAGES Routine 02/16/2013 12:00 AM EST from Last 3 Months or Most Recently Relevant to Health Maintenance Insurance [facility] ST[place] AD[place]
== END 2024-10-18 10:50 | disposition home or self-care (01) ==
LOC: HO.HSMS 10:06
PROVIDERS: PCP Family Medicine; Visit Provider Psychiatry & Neurology Neurology
DX: G43.719 Chronic migraine without aura, intractable, without status migrainosus (principal)
CPT/HCPCS: 64615

== ENCOUNTER → 2024-10-18 10:06 | Outpatient (BNVA) | payer MEDICAID, SELFPAY | PROVIDERS: PCP Family Medicine; Visit Provider Psychiatry & Neurology Neurology | DX: G43.719 Chronic migraine without aura, intractable, without status migrainosus (principal); R20.0 Anesthesia of skin; Q23.81 Bicuspid aortic valve; E11.9 Type 2 diabetes mellitus without complications; G47.10 Hypersomnia, unspecified; M81.0 Age-related osteoporosis without current pathological fracture; D64.9 Anemia, unspecified; Z79.01 Long term (current) use of anticoagulants | CPT/HCPCS: 64615; 99211; J0585 ==

== ENCOUNTER 2024-11-28 11:18 | Outpatient (AMB) | payer MEDICAID, SELFPAY ==
--- NOTE | 2024-11-28 11:22 | A.OFFVIS_ITS ---
Vital Signs 11/28/24 11:26 Height 5 ft 5.5 in Weight 154 lb 5.177 oz BMI 25.3 BP 141/80 H Blood Pressure Location Lt brachial Position Sitting Pulse 98 Intake Visit Reasons: f/u Intake Note: Coral presents in the office as a follow up. CC: She states the her colo was not cleared out fully and wants results of her EGD. [employer] Required: No Allergies acetaminophen (From MIDRIN) Allergy (Unknown, Verified 11/28/24 11:26) VOMITING amitriptyline (AMITRIPTYLINE) Allergy (Unknown, Verified 11/28/24 11:26) SEVERE HALLUCINATIONS aspirin (From Fiorinal) Allergy (Unknown, Verified 11/28/24 11:26) Unknown butalbital (From FIORICET) Allergy (Unknown, Verified 11/28/24 11:26) VOMITING caffeine (From FIORICET) Allergy (Unknown, Verified 11/28/24 11:26) VOMITING cefuroxime Allergy (Unknown, Verified 11/28/24 11:26) Vomiting dichloralphenazone (From MIDRIN) Allergy (Unknown, Verified 11/28/24 11:26) VOMITING ferumoxytol (From FERAHEME) Allergy (Unknown, Verified 11/28/24 11:26) GETS REALLY SICK fluoxetine Allergy (Unknown, Verified 11/28/24 11:26) Unknown gabapentin (From NEURONTIN) Allergy (Unknown, Verified 11/28/24 11:26) PSYCHOSIS ibandronate sodium (From Boniva) Allergy (Unknown, Verified 11/28/24 11:26) Vomiting ibuprofen Allergy (Unknown, Verified 11/28/24 11:26) Unknown isometheptene (From MIDRIN) Allergy (Unknown, Verified 11/28/24 11:26) VOMITING levetiracetam (From KEPPRA) Allergy (Unknown, Verified 11/28/24 11:26) HALLUCINATIONS meperidine (From DEMEROL) Allergy (Unknown, Verified 11/28/24 11:26) HIVES methocarbamol (From ROBAXIN) Allergy (Unknown, Verified 11/28/24 11:26) DIARRHEA metoclopramide (From REGLAN) Allergy (Unknown, Verified 11/28/24 11:26) TWITCHING morphine (MORPHINE) Allergy (Unknown, Verified 11/28/24 11:26) VOMITING nortriptyline (NORTRIPTYLINE) Allergy (Unknown, Verified 11/28/24 11:26) PSYCHOSIS NSAIDS (Non-Steroidal Anti-Inflamma (NSAIDS (NON-STEROIDAL ANTI-INFLAMMA) Allergy (Unknown, Verified 11/28/24 11:26) GI BLEED pregabalin (From LYRICA) Allergy (Unknown, Verified 11/28/24 11:26) UNKNOWN sumatriptan (From IMITREX) Allergy (Unknown, Verified 11/28/24 11:26) IRREGULAR HEART RATE teriparatide (From Forteo) Allergy (Unknown, Verified 11/28/24 11:26) Unknown topiramate (From TOPAMAX) Allergy (Unknown, Verified 11/28/24 11:26) UNKNOWN valproic acid (VALPROIC ACID) Allergy (Unknown, Verified 11/28/24 11:26) PSYCHOSIS venlafaxine (VENLAFAXINE) Allergy (Unknown, Verified 11/28/24 11:26) DIARRHEA zolmitriptan (From ZOMIG) Allergy (Unknown, Verified 11/28/24 11:26) IRREGULAR HEART RATE valporic acid Allergy (Severe, Uncoded 11/28/24 11:26) Unknown Midrin Allergy (Unknown, Uncoded 11/28/24 11:26) Unknown Novocain Allergy (Unknown, Uncoded 11/28/24 11:26) Unknown HPI HPI f/u: Details: 59 y/o female w hx of gerd, mitochondrial dz seen for follow up RECAP: [place] [facility] [place] with G[place]D, hx of Bilroth 1- for bleeding ulcer hx of chronic constipation she has been seeing doctors in [place], [facility] and [facility] she stopped reglan due to TD EGD/Voorhees 08/28 Endoscopy Findings: possible gastroparesis hiatal hernia schatzki ring esophageal stricture s/p balloon dilation esophagitis Colonoscopy Findings: poor prep internal hemorrhoids Plan: Await Pathology results Repeat Colonoscopy in 3-6 months with alternative prep or earlier if clinically indicated High fiber diet leaflet avoid straining at stool, epsom salts and sitz bath, anusol supps or cream refer to PT for pelvic floor weakness and dyssnergy MR defecography: 08/12/24 weak levator ani muscles and thinning of puborectalis INTERIM: she cut back on mag and this has helped her continence, but she has more issues with constipation now reflux usu controlled with pantoprazole but recently more break thru episodes she feesl gastroparesis is worse she was asking about fatty liver, last LFT 1 yr ag were nml reviewed egd and colo and need for rept due to prep EXAM: GENERAL: The patient is well developed and nontoxic. VITAL SIGNS:see workflow HEENT: Nonicteric sclerae, PERRLA, EOMI. Oropharynx clear. Moist mucous membranes. Conjunctivae appear well perfused. No thyroid mass. CHEST: Chest wall is nontender. HEART: Regular rate and rhythm without murmurs. LUNGS: Clear to auscultation bilaterally. ABDOMEN: Soft, positive bowel sounds, nontender, no organomegaly.no flank tenderness SKIN: No rash, no excessive bruising, petechiae, or purpura. NEUROLOGIC: Cranial nerves II-XII intact without motor/sensory deficit. Psych: normal affect A/P: 1/ Constipation maybe due to mitochondrial dz 2/ Pelvic floor weakness PLAN: 1/ trial of motegrity may help constipation and gastroparesis as well 2/ rechekc labs if LFT nml then US 3/ change PPI and see if helps PFSH Medical History Bicuspid aortic valve Left upper extremity numbness Hx of skin cancer, basal cell Chronic migraine without aura Diabetes Hypersomnia Snoring Osteoporosis Chronic migraine with aura Mitochondrial ataxia syndrome Anemia Surgical History H/O mechanical aortic valve replacement History of ankle surgery Hx of heart surgery Family History Father Parkinson disease Mother Tuberculosis Social History Household Members Other:: son Are you a primary early breastfeeding care specialist to a significant other at home: No Do you presently have visiting nurse or other home services: No Alcohol intake: current Alcohol intake frequency: holidays/special occasions only Patient Tobacco Use Status: Never used Tobacco Substance Use Type: Marijuana Physical Exam Vital Signs: Last Vital Signs Pulse 98 11/28/24 11:26 BP 141/80 H 11/28/24 11:26 BMI result Body Mass Index 25.3 Assessment & Plan Assessment & Plan (1) Anemia: Code(s): D64.9 - Anemia, unspecified Category: Medical Plan: as above Orders: Orders Complete Blood Count Auto Diff Today D64.9 - Anemia, unspecified Comprehensive Met. Panel Today D64.9 - Anemia, unspecified, K75.81 - Nonalcoholic steatohepatitis (GARCIA) Medications: New magnesium oxide 500 mg PO DAILY 30 caps 2RF esomeprazole magnesium 40 mg PO BID 180 caps 1RF prucalopride (Motegrity) 1 mg PO DAILY 30 tabs 0RF Refilled ondansetron 4 mg PO Q8H PRN 10 tabs 0RF nausea and vomiting Coding Level of Care Code Est Pt Level 3 (69432) Diagnoses Anemia D64.9
[2024-11-28 11:26] VITALS: BP 141/80; PULSE 98; BMI 25.3
--- OUTSIDE RECORDS SUMMARY | 2024-11-28 12:43 | XMS_ITS | Clinical Summary ---
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
== END 2024-11-28 12:08 | disposition home or self-care (01) ==
LOC: HO.HGI 11:18
PROVIDERS: PCP Family Medicine; Visit Provider Internal Medicine Gastroenterology
DX: D64.9 Anemia, unspecified (principal)
CPT/HCPCS: 99213

== ENCOUNTER → 2024-11-28 11:18 | Outpatient (BNVA) | payer MEDICAID, SELFPAY | PROVIDERS: PCP Family Medicine; Visit Provider Internal Medicine Gastroenterology | DX: K75.81 Nonalcoholic steatohepatitis (NASH) (principal); D64.9 Anemia, unspecified | CPT/HCPCS: 99212 ==